=== PATIENT | female | born 1970 | race African-American/Black ===

== ENCOUNTER 2016-09-15 17:20 | Inpatient (IN) | payer MEDICAID, OTHER ==
[~2016-09-15] VITALS: Ht 157.5 cm; Wt 124.7 kg
[~2016-09-15 17:20] MED LIST: BECL8.7A6 IH; CITA20TA9 PO; DSS100 PO; LISI-662 PO; METO25 PO; OMEP20 PO; RISP2 PO; VITAD1000 PO
[2016-09-15 17:47] VITALS: BP 111/54
[2016-09-15] MEDS ORDERED: HALOPERIDOL 5 MG TABLET PO PRN (18:00)
[2016-09-15] MEDS ORDERED: ZOLPIDEM TARTRATE 10 MG TABLET PO PRN (18:00)
[2016-09-15 18:40] VITALS: BP 116/75
[2016-09-15] MEDS: RisperiDONE 2 MG TABLET PO SCH (19:26)
[2016-09-16 01:10] VITALS: BP 102/63
[2016-09-16] MEDS ORDERED: ACETAMINOPHEN 325 MG TABLET PO PRN ×2 (07:15→09:15)
[2016-09-16 07:26] LABS: BASOPHILS % (AUTO) 0.4 % (0.0-2.0); EOSINOPHILS % (AUTO) 3.1 % (1.0-6.0); HEMATOCRIT 38.6 % (36-46); HEMOGLOBIN 12.6 g/dL (12.0-16.0); LYMPHOCYTES # (AUTO) 2.4 K/uL (1.0-4.8); LYMPHOCYTES % (AUTO) 41.8 % (22.0-44.0); MEAN CORPUSCULAR HEMOGLOBIN 27.6 pg (26.0-34.0); MEAN CORPUSCULAR HGB CONC 32.6 G/dL (31.0-37.0); MEAN CORPUSCULAR VOLUME 85 fL (80-100); MONOCYTES # (AUTO) 0.6 K/uL (0.1-1.0); MONOCYTES % (AUTO) 10.4 % (2.0-9.0); NEUTROPHILS # (AUTO) 2.5 K/uL (1.8-7.7); NEUTROPHILS % (AUTO) 44.3 % (40.0-70.0); PLATELET COUNT (AUTO) 214 K/uL (150-450); RED BLOOD CELL COUNT(AUTO) 4.56 MIL/uL (4.00-5.20); RED CELL DISTRIBUTION WIDTH 15.3 % (11.5-14.5); WHITE BLOOD COUNT (AUTO) 5.7 K/uL (4.5-11.0)
[2016-09-16 07:56] LABS: HEMOGLOBIN A1C 5.6 % (4.5-6.2)
[2016-09-16 08:40] LABS: ALANINE AMINOTRANSFERASE 19 U/L (12-78); ALBUMIN 3.4 g/dL (3.4-5.0); ANION GAP 5 mmol/L (8-16); ASPARTATE AMINOTRANSFERASE 17 U/L (15-37); BILIRUBIN,TOTAL 0.5 mg/dL (0.1-1.0); CARBON DIOXIDE 40 mmol/L (22-29); CHLORIDE 92 mmol/L (98-107); CREATININE 0.77 mg/dL (0.60-1.30); GLOMERULAR FILTR. RATE CALC > 60 mL/min (>60); SODIUM SERUM 137 mmol/L (136-145); THYROID STIMULATING HORMONE 0.71 uIU/mL (0.36-3.74); UREA NITROGEN, BLOOD 16 mg/dL (7-18)
[2016-09-16 08:46] LABS: POTASSIUM 2.9 mmol/L (3.5-5.1)
[2016-09-16] MEDS ORDERED: CloNIDine HCL 0.1 MG TABLET PO PRN (09:15)
[2016-09-16] MEDS ORDERED: BACITRACIN 28.4 GM OINTMENT TP PRN (09:15)
[2016-09-16] MEDS ORDERED: BENZOCAINE/MENTHOL LOZENGE MM PRN (09:15)
[2016-09-16] MEDS ORDERED: MAG HYDROX/AL HYDROX/SIMETH ES 30 ML SUSPENSION UDCUP PO PRN (09:15)
[2016-09-16] MEDS ORDERED: ALBUTEROL SULFATE HFA 90 MCG/PUFF 8 GM INHALER IH PRN (09:15)
[2016-09-16] MEDS ORDERED: IBUPROFEN 600 MG TABLET PO PRN (09:15)
[2016-09-16] MEDS ORDERED: LOPERAMIDE HCL 2 MG CAPSULE PO PRN (09:15)
[2016-09-16] MEDS ORDERED: POTASSIUM CHLORIDE 20 MEQ ER TABLET PO ONE (09:15)
[2016-09-16] MEDS ORDERED: ONDANSETRON HCL 4 MG TABLET PO PRN (09:15)
[2016-09-16] MEDS ORDERED: MAGNESIUM HYDROXIDE SUSPENSION 30 ML UDCUP PO PRN (09:15)
[2016-09-16] MEDS: SPIRONOLACTONE 50 MG TABLET PO SCH (09:15)
[2016-09-16] MEDS ORDERED: PETROLATUM,WHITE 71 GM JELLY TP PRN (09:15)
[2016-09-16] MEDS: CITALOPRAM HYDROBROMIDE 20 MG TABLET PO SCH (09:57)
[2016-09-16] MEDS: RisperiDONE 2 MG TABLET PO SCH ×2 (09:57→16:07)
[2016-09-16] MEDS: GuaiFENesin/D-METHORPHAN/PHENYLEPH 5 ML LIQUID ORAL.SYG PO PRN (16:15)
[2016-09-16 16:31] VITALS: BP 119/48
[2016-09-17] MEDS: GuaiFENesin/D-METHORPHAN/PHENYLEPH 5 ML LIQUID ORAL.SYG PO PRN ×2 (06:35→15:44)
[2016-09-17 06:36] VITALS: BP 136/80
[2016-09-17] MEDS: CITALOPRAM HYDROBROMIDE 20 MG TABLET PO SCH (08:41)
[2016-09-17] MEDS: RisperiDONE 2 MG TABLET PO SCH ×2 (08:41→16:27)
[2016-09-17] MEDS: NICOTINE 21 MG/24 HOUR PATCH TD SCH (08:41)
[2016-09-17] MEDS: CHOLECALCIFEROL (VIT D3) 1,000 UNITS TABLET PO SCH (08:41)
[2016-09-17] MEDS: SPIRONOLACTONE 50 MG TABLET PO SCH (08:42)
[2016-09-17] MEDS: OMEPRAZOLE 20 MG CAPSULE PO SCH (08:42)
[2016-09-17] MEDS ORDERED: CIPROFLOXACIN HCL 500 MG TABLET PO SCH (09:00)
[2016-09-17 09:03] VITALS: BP 123/73
[2016-09-17] MEDS ORDERED: POTASSIUM CHLORIDE 20 MEQ ER TABLET PO ONE ×2 (09:15→10:15)
[2016-09-17 16:11] VITALS: BP 125/67
[2016-09-18 02:35] VITALS: BP 138/94
[2016-09-18] MEDS: TraMADol HCL 50 MG TABLET PO PRN ×3 (02:57→16:14)
[2016-09-18] MEDS: RisperiDONE 2 MG TABLET PO SCH ×2 (08:36→16:13)
[2016-09-18] MEDS: SPIRONOLACTONE 50 MG TABLET PO SCH (08:36)
[2016-09-18] MEDS: CITALOPRAM HYDROBROMIDE 20 MG TABLET PO SCH (08:36)
[2016-09-18] MEDS: CHOLECALCIFEROL (VIT D3) 1,000 UNITS TABLET PO SCH (08:36)
[2016-09-18] MEDS: OMEPRAZOLE 20 MG CAPSULE PO SCH (08:36)
[2016-09-18] MEDS: GuaiFENesin/D-METHORPHAN/PHENYLEPH 5 ML LIQUID ORAL.SYG PO PRN (08:37)
[2016-09-18 08:46] VITALS: BP 145/90
[2016-09-18] MEDS: NICOTINE 21 MG/24 HOUR PATCH TD SCH (09:16)
[2016-09-18 09:56] VITALS: BP 111/75
[2016-09-18 16:14] VITALS: BP 134/70
[2016-09-19] VITALS (7 sets, daily range): BP systolic 106–142; BP diastolic 68–82
[2016-09-19] MEDS: TraMADol HCL 50 MG TABLET PO PRN ×3 (02:57→22:31)
[2016-09-19] MEDS: GuaiFENesin/D-METHORPHAN/PHENYLEPH 5 ML LIQUID ORAL.SYG PO PRN (02:57)
[2016-09-19] MEDS ORDERED: DiphenhydrAMINE HCL 50 MG/ML VIAL IM ONE (09:00)
[2016-09-19] MEDS: RisperiDONE 2 MG TABLET PO SCH ×2 (09:04→16:19)
[2016-09-19] MEDS ORDERED: DiphenhydrAMINE HCL 50 MG/ML VIAL ONE (09:04)
[2016-09-19] MEDS: OMEPRAZOLE 20 MG CAPSULE PO SCH (09:04)
[2016-09-19] MEDS: SPIRONOLACTONE 50 MG TABLET PO SCH (09:04)
[2016-09-19] MEDS: CHOLECALCIFEROL (VIT D3) 1,000 UNITS TABLET PO SCH (09:04)
[2016-09-19] MEDS: CITALOPRAM HYDROBROMIDE 20 MG TABLET PO SCH (09:04)
[2016-09-19] MEDS: NICOTINE 21 MG/24 HOUR PATCH TD SCH (09:10)
[2016-09-20 06:48] VITALS: BP 140/89
[2016-09-20] MEDS: LORazepam 2 MG TABLET PO PRN ×2 (06:50→16:00)
[2016-09-20 08:41] VITALS: BP 137/79
[2016-09-20] MEDS: SPIRONOLACTONE 50 MG TABLET PO SCH (09:00)
[2016-09-20] MEDS: TraMADol HCL 50 MG TABLET PO PRN (09:26)
[2016-09-20] MEDS: OMEPRAZOLE 20 MG CAPSULE PO SCH (09:26)
[2016-09-20] MEDS: CITALOPRAM HYDROBROMIDE 20 MG TABLET PO SCH (09:26)
[2016-09-20] MEDS: CHOLECALCIFEROL (VIT D3) 1,000 UNITS TABLET PO SCH (09:26)
[2016-09-20] MEDS: RisperiDONE 2 MG TABLET PO SCH ×2 (09:26→16:00)
[2016-09-20] MEDS: NICOTINE 21 MG/24 HOUR PATCH TD SCH (09:27)
[2016-09-20 16:00] VITALS: BP 134/81
[2016-09-20] MEDS: BENZTROPINE MESYLATE 1 MG TABLET PO SCH (16:00)
[2016-09-21 04:06] VITALS: BP 142/90
[2016-09-21] MEDS: TraMADol HCL 50 MG TABLET PO PRN (04:09)
[2016-09-21 05:40] VITALS: BP 138/96
[2016-09-21] MEDS: LORazepam 2 MG TABLET PO PRN (05:42)
[2016-09-21 08:42] VITALS: BP 126/72
[2016-09-21] MEDS: CITALOPRAM HYDROBROMIDE 20 MG TABLET PO SCH (09:13)
[2016-09-21] MEDS: BENZTROPINE MESYLATE 1 MG TABLET PO SCH (09:13)
[2016-09-21] MEDS: OMEPRAZOLE 20 MG CAPSULE PO SCH (09:13)
[2016-09-21] MEDS: SPIRONOLACTONE 50 MG TABLET PO SCH (09:13)
[2016-09-21] MEDS: NICOTINE 21 MG/24 HOUR PATCH TD SCH (09:13)
[2016-09-21] MEDS: RisperiDONE 2 MG TABLET PO SCH (09:13)
[2016-09-21] MEDS: CHOLECALCIFEROL (VIT D3) 1,000 UNITS TABLET PO SCH (09:13)
[2016-09-21] MEDS ORDERED: SPIR50 PO (10:06)
[2016-09-21] MEDS ORDERED: BENZ1TAB10 PO (10:06)
[2016-09-21] MEDS ORDERED: ALBU8HFA4 IH (10:09)
== END 2016-09-21 13:25 | disposition home or self-care (01) | DRG 750 ==
LOC: EDSTATUS 18:10 → B2S 18:26
PROVIDERS: ADMIT Psychiatry & Neurology Psychiatry; ATTEND Psychiatry & Neurology Psychiatry
DX: F20.0 Paranoid schizophrenia (principal); Z68.43 Body mass index [BMI] 50.0-59.9, adult; I10 Essential (primary) hypertension; F25.9 Schizoaffective disorder, unspecified; J44.9 Chronic obstructive pulmonary disease, unspecified; E87.6 Hypokalemia; F15.10 Other stimulant abuse, uncomplicated; F12.10 Cannabis abuse, uncomplicated; F10.10 Alcohol abuse, uncomplicated; E55.9 Vitamin D deficiency, unspecified; E66.01 Morbid (severe) obesity due to excess calories; K21.9 Gastro-esophageal reflux disease without esophagitis; M54.5 Low back pain
CPT/HCPCS: 83036; 84132; 84439; 84443; J1200; J3535

== ENCOUNTER 2016-11-01 20:00 | Inpatient (IN) | payer MEDICAID ==
[~2016-11-01] VITALS: Ht 157.5 cm; Wt 125.6 kg
[~2016-11-01 20:00] MED LIST changes: +ALBU8HFA4 IH; -BECL8.7A6 IH; +BENZ1TAB10 PO; -DSS100 PO; -LISI-662 PO; -METO25 PO; +SPIR50 PO
[2016-11-01] MEDS ORDERED: HALOPERIDOL 5 MG TABLET PO PRN (20:45)
[2016-11-01] MEDS ORDERED: ZOLPIDEM TARTRATE 10 MG TABLET PO PRN (20:45)
[2016-11-02 00:28] LABS: BASOPHILS % (AUTO) 0.6 % (0.0-2.0); EOSINOPHILS % (AUTO) 5.7 % (1.0-6.0); HEMATOCRIT 38.2 % (36-46); HEMOGLOBIN 12.1 g/dL (12.0-16.0); LYMPHOCYTES # (AUTO) 2.8 K/uL (1.0-4.8); LYMPHOCYTES % (AUTO) 44.7 % (22.0-44.0); MEAN CORPUSCULAR HEMOGLOBIN 27.2 pg (26.0-34.0); MEAN CORPUSCULAR HGB CONC 31.7 G/dL (31.0-37.0); MEAN CORPUSCULAR VOLUME 86 fL (80-100); MONOCYTES # (AUTO) 0.4 K/uL (0.1-1.0); MONOCYTES % (AUTO) 6.5 % (2.0-9.0); NEUTROPHILS # (AUTO) 2.6 K/uL (1.8-7.7); NEUTROPHILS % (AUTO) 42.5 % (40.0-70.0); PLATELET COUNT (AUTO) 284 K/uL (150-450); RED BLOOD CELL COUNT(AUTO) 4.46 MIL/uL (4.00-5.20); RED CELL DISTRIBUTION WIDTH 16.2 % (11.5-14.5); WHITE BLOOD COUNT (AUTO) 6.2 K/uL (4.5-11.0)
[2016-11-02 00:36] LABS: ANION GAP 6 mmol/L (8-16); CARBON DIOXIDE 36 mmol/L (22-29); CHLORIDE 102 mmol/L (98-107); CREATININE 0.79 mg/dL (0.60-1.30); GLOMERULAR FILTR. RATE CALC > 60 mL/min (>60); POTASSIUM 3.2 mmol/L (3.5-5.1); SODIUM SERUM 144 mmol/L (136-145); UREA NITROGEN, BLOOD 12 mg/dL (7-18)
[2016-11-02 00:42] LABS: ALANINE AMINOTRANSFERASE 14 U/L (12-78); ALBUMIN 2.8 g/dL (3.4-5.0); ASPARTATE AMINOTRANSFERASE 13 U/L (15-37); BILIRUBIN,TOTAL 0.3 mg/dL (0.1-1.0)
[2016-11-02 03:26] VITALS: BP 136/76
[2016-11-02 08:20] LABS: BASOPHILS % (AUTO) 0.6 % (0.0-2.0); EOSINOPHILS % (AUTO) 6.3 % (1.0-6.0); HEMATOCRIT 36.4 % (36-46); HEMOGLOBIN 11.5 g/dL (12.0-16.0); LYMPHOCYTES # (AUTO) 2.3 K/uL (1.0-4.8); MEAN CORPUSCULAR HGB CONC 31.6 G/dL (31.0-37.0); MEAN CORPUSCULAR VOLUME 86 fL (80-100); MONOCYTES # (AUTO) 0.5 K/uL (0.1-1.0); MONOCYTES % (AUTO) 7.3 % (2.0-9.0); NEUTROPHILS # (AUTO) 3.1 K/uL (1.8-7.7); NEUTROPHILS % (AUTO) 49.8 % (40.0-70.0); PLATELET COUNT (AUTO) 253 K/uL (150-450); RED BLOOD CELL COUNT(AUTO) 4.25 MIL/uL (4.00-5.20); RED CELL DISTRIBUTION WIDTH 16.2 % (11.5-14.5); WHITE BLOOD COUNT (AUTO) 6.3 K/uL (4.5-11.0)
[2016-11-02 08:36] LABS: HEMOGLOBIN A1C 5.9 % (4.5-6.2)
[2016-11-02 08:51] LABS: ALANINE AMINOTRANSFERASE 13 U/L (12-78); ALBUMIN 2.7 g/dL (3.4-5.0); ANION GAP 7 mmol/L (8-16); ASPARTATE AMINOTRANSFERASE 13 U/L (15-37); BILIRUBIN,TOTAL 0.2 mg/dL (0.1-1.0); CALCIUM, TOTAL 7.6 mg/dL (8.8-10.5); CARBON DIOXIDE 33 mmol/L (22-29); CHLORIDE 104 mmol/L (98-107); CHOL/HDL RATIO 2.6 (3.9-5.7); CREATININE 0.67 mg/dL (0.60-1.30); GLOMERULAR FILTR. RATE CALC > 60 mL/min (>60); POTASSIUM 3.2 mmol/L (3.5-5.1); SODIUM SERUM 144 mmol/L (136-145); THYROID STIMULATING HORMONE 0.68 uIU/mL (0.36-3.74); UREA NITROGEN, BLOOD 10 mg/dL (7-18)
[2016-11-02] MEDS ORDERED: POTASSIUM CHLORIDE 20 MEQ ER TABLET PO ONE (10:15)
[2016-11-02] MEDS ORDERED: ACETAMINOPHEN 325 MG TABLET PO PRN (10:15)
[2016-11-02] MEDS: NICOTINE 21 MG/24 HOUR PATCH TD SCH (10:29)
[2016-11-02 10:30] VITALS: BP 132/78
[2016-11-02] MEDS ORDERED: CloNIDine HCL 0.1 MG TABLET PO PRN (14:00)
[2016-11-02] MEDS ORDERED: ONDANSETRON HCL 4 MG TABLET PO PRN (14:00)
[2016-11-02] MEDS ORDERED: PETROLATUM,WHITE 71 GM JELLY TP PRN (14:00)
[2016-11-02] MEDS ORDERED: BACITRACIN 28.4 GM OINTMENT TP PRN (14:00)
[2016-11-02] MEDS ORDERED: ALBUTEROL SULFATE HFA 90 MCG/PUFF 8 GM INHALER IH PRN (14:00)
[2016-11-02] MEDS ORDERED: LOPERAMIDE HCL 2 MG CAPSULE PO PRN (14:00)
[2016-11-02] MEDS ORDERED: MAG HYDROX/AL HYDROX/SIMETH ES 30 ML SUSPENSION UDCUP PO PRN (14:00)
[2016-11-02] MEDS ORDERED: MAGNESIUM HYDROXIDE SUSPENSION 30 ML UDCUP PO PRN (14:00)
[2016-11-02] MEDS ORDERED: BENZOCAINE/MENTHOL LOZENGE MM PRN (14:00)
[2016-11-02 16:09] VITALS: BP 111/75
[2016-11-02] MEDS: BENZTROPINE MESYLATE 1 MG TABLET PO SCH (17:56)
[2016-11-02] MEDS: RisperiDONE 2 MG TABLET PO SCH (17:56)
[2016-11-03 06:39] VITALS: BP 135/81
[2016-11-03 08:29] VITALS: BP 149/91
[2016-11-03] MEDS: NICOTINE 21 MG/24 HOUR PATCH TD SCH (09:50)
[2016-11-03] MEDS: RisperiDONE 2 MG TABLET PO SCH ×2 (09:50→16:34)
[2016-11-03] MEDS: CITALOPRAM HYDROBROMIDE 20 MG TABLET PO SCH (09:50)
[2016-11-03] MEDS: BENZTROPINE MESYLATE 1 MG TABLET PO SCH ×2 (09:50→16:34)
[2016-11-03] MEDS: POTASSIUM CHLORIDE 10 MEQ ER TABLET PO SCH (09:51)
[2016-11-03] MEDS: CHOLECALCIFEROL (VIT D3) 1,000 UNITS TABLET PO SCH (09:51)
[2016-11-03] MEDS: FUROSEMIDE 20 MG TABLET PO SCH (09:53)
[2016-11-03 09:55] VITALS: BP 145/93
[2016-11-03] MEDS: IBUPROFEN 600 MG TABLET PO PRN ×3 (09:55→20:46)
[2016-11-03 16:04] VITALS: BP 143/74
[2016-11-03] MEDS: LORazepam 2 MG TABLET PO PRN (20:47)
[2016-11-04 01:34] VITALS: BP 150/90
[2016-11-04] MEDS: FUROSEMIDE 20 MG TABLET PO SCH (08:18)
[2016-11-04] MEDS: RisperiDONE 2 MG TABLET PO SCH ×2 (08:18→16:05)
[2016-11-04] MEDS: NICOTINE 21 MG/24 HOUR PATCH TD SCH (08:18)
[2016-11-04] MEDS: POTASSIUM CHLORIDE 10 MEQ ER TABLET PO SCH (08:18)
[2016-11-04] MEDS: BENZTROPINE MESYLATE 1 MG TABLET PO SCH ×2 (08:18→16:05)
[2016-11-04] MEDS: CITALOPRAM HYDROBROMIDE 20 MG TABLET PO SCH (08:18)
[2016-11-04] MEDS: CHOLECALCIFEROL (VIT D3) 1,000 UNITS TABLET PO SCH (08:18)
[2016-11-04] MEDS: IBUPROFEN 600 MG TABLET PO PRN (16:05)
[2016-11-04 16:07] VITALS: BP 128/85
[2016-11-05 02:35] VITALS: BP 140/82
[2016-11-05] MEDS: LORazepam 2 MG TABLET PO PRN ×2 (02:39→16:51)
[2016-11-05] MEDS: IBUPROFEN 600 MG TABLET PO PRN (02:40)
[2016-11-05 08:48] VITALS: BP 130/92
[2016-11-05] MEDS: NICOTINE 21 MG/24 HOUR PATCH TD SCH (09:02)
[2016-11-05] MEDS: RisperiDONE 2 MG TABLET PO SCH ×2 (09:02→16:16)
[2016-11-05] MEDS: BENZTROPINE MESYLATE 1 MG TABLET PO SCH ×2 (09:02→16:16)
[2016-11-05] MEDS: CHOLECALCIFEROL (VIT D3) 1,000 UNITS TABLET PO SCH (09:02)
[2016-11-05] MEDS: CITALOPRAM HYDROBROMIDE 20 MG TABLET PO SCH (09:02)
[2016-11-05] MEDS: POTASSIUM CHLORIDE 10 MEQ ER TABLET PO SCH (09:03)
[2016-11-05] MEDS: FUROSEMIDE 20 MG TABLET PO SCH (09:05)
[2016-11-05 16:13] VITALS: BP 141/84
[2016-11-05 16:51] VITALS: BP 138/80
[2016-11-05] MEDS: ACETAMINOPHEN 325 MG TABLET PO PRN (16:51)
[2016-11-06 02:04] VITALS: BP 156/116
[2016-11-06] MEDS: IBUPROFEN 600 MG TABLET PO PRN ×2 (02:09→08:00)
[2016-11-06 03:08] VITALS: BP 113/61
[2016-11-06] MEDS: BENZTROPINE MESYLATE 1 MG TABLET PO SCH ×2 (07:59→16:56)
[2016-11-06] MEDS: NICOTINE 21 MG/24 HOUR PATCH TD SCH (07:59)
[2016-11-06] MEDS: CITALOPRAM HYDROBROMIDE 20 MG TABLET PO SCH (08:00)
[2016-11-06] MEDS: CHOLECALCIFEROL (VIT D3) 1,000 UNITS TABLET PO SCH (08:00)
[2016-11-06] MEDS: RisperiDONE 3 MG TABLET PO SCH ×2 (08:00→16:56)
[2016-11-06] MEDS: POTASSIUM CHLORIDE 10 MEQ ER TABLET PO SCH (08:01)
[2016-11-06] MEDS: FUROSEMIDE 20 MG TABLET PO SCH (08:03)
[2016-11-06 08:12] VITALS: BP 133/87
[2016-11-06 08:17] VITALS: BP 133/87
[2016-11-06 16:03] VITALS: BP 127/69
[2016-11-06] MEDS: LORazepam 2 MG TABLET PO PRN (16:57)
[2016-11-06] MEDS: ACETAMINOPHEN 325 MG TABLET PO PRN (16:58)
[2016-11-07 01:38] VITALS: BP 139/87
[2016-11-07] MEDS: IBUPROFEN 600 MG TABLET PO PRN ×2 (01:44→18:48)
[2016-11-07] MEDS: LORazepam 2 MG TABLET PO PRN ×3 (01:44→18:48)
[2016-11-07] MEDS: ACETAMINOPHEN 325 MG TABLET PO PRN (08:10)
[2016-11-07 08:54] VITALS: BP 145/88
[2016-11-07] MEDS: RisperiDONE 3 MG TABLET PO SCH ×2 (08:57→16:14)
[2016-11-07] MEDS: CITALOPRAM HYDROBROMIDE 20 MG TABLET PO SCH (08:57)
[2016-11-07] MEDS: NICOTINE 21 MG/24 HOUR PATCH TD SCH (08:57)
[2016-11-07] MEDS: BENZTROPINE MESYLATE 1 MG TABLET PO SCH ×2 (08:57→16:14)
[2016-11-07] MEDS: CHOLECALCIFEROL (VIT D3) 1,000 UNITS TABLET PO SCH (08:57)
[2016-11-07] MEDS: POTASSIUM CHLORIDE 10 MEQ ER TABLET PO SCH (08:57)
[2016-11-07] MEDS: FUROSEMIDE 20 MG TABLET PO SCH (08:57)
[2016-11-07 09:07] LABS: POTASSIUM 3.4 mmol/L (3.5-5.1)
[2016-11-07 16:05] VITALS: BP 131/71
[2016-11-07] MEDS ORDERED: POTA-9 PO (16:55)
[2016-11-07] MEDS ORDERED: CITA40TA14 PO (16:55)
[2016-11-07] MEDS ORDERED: CHOL100034 PO (16:55)
[2016-11-07] MEDS ORDERED: BENZ2AMP2 PO (16:55)
[2016-11-07] MEDS ORDERED: FURO-152 PO (16:55)
[2016-11-07] MEDS ORDERED: RISP3TAB44 PO (16:55)
== END 2016-11-08 07:15 | disposition home or self-care (01) | DRG 750 ==
LOC: BV PSY EVL 21:22 → AHU 22:57 → B2S 11-02 01:28
PROVIDERS: ADMIT Psychiatry & Neurology Psychiatry; ATTEND Psychiatry & Neurology Psychiatry
DX: F25.0 Schizoaffective disorder, bipolar type (principal); R45.851 Suicidal ideations; Z68.43 Body mass index [BMI] 50.0-59.9, adult; E55.9 Vitamin D deficiency, unspecified; I10 Essential (primary) hypertension; E66.01 Morbid (severe) obesity due to excess calories; E87.6 Hypokalemia; F12.90 Cannabis use, unspecified, uncomplicated; F15.10 Other stimulant abuse, uncomplicated; F17.200 Nicotine dependence, unspecified, uncomplicated; G47.00 Insomnia, unspecified; H54.42 Blindness, left eye, normal vision right eye; J44.9 Chronic obstructive pulmonary disease, unspecified; J45.909 Unspecified asthma, uncomplicated; K21.9 Gastro-esophageal reflux disease without esophagitis; Z59.0 Homelessness; F22 Delusional disorders; Z71.51 Drug abuse counseling and surveillance of drug abuser; Z71.6 Tobacco abuse counseling
CPT/HCPCS: 80307; 83036; 84132; 84295; 84439; 84443; 99285; G0480

== ENCOUNTER 2016-11-20 07:31 | Inpatient (IN) | payer MEDICAID, OTHER ==
[~2016-11-20] VITALS: Ht 160 cm; Wt 121.9 kg
[~2016-11-20 07:31] MED LIST changes: -ALBU8HFA4 IH; -BENZ1TAB10 PO; +BENZ2AMP2 PO; +CHOL100034 PO; -CITA20TA9 PO; +CITA40TA14 PO; +FURO-152 PO; -OMEP20 PO; +POTA-9 PO; -RISP2 PO; +RISP3TAB44 PO; -SPIR50 PO; -VITAD1000 PO
[2016-11-20] MEDS ORDERED: MAGNESIUM SULFATE 2 GM, MVI, ADULT NO.1 WITH VIT K 10 ML, THIAMINE HCL 100 MG, FOLIC AC... IV ONE ×5 (07:45)
[2016-11-20 08:08] LABS: BASOPHILS % (AUTO) 0.5 % (0.0-2.0); EOSINOPHILS % (AUTO) 3.5 % (1.0-6.0); HEMOGLOBIN 12.8 g/dL (12.0-16.0); LYMPHOCYTES # (AUTO) 2.2 K/uL (1.0-4.8); LYMPHOCYTES % (AUTO) 26.2 % (22.0-44.0); MEAN CORPUSCULAR HEMOGLOBIN 26.8 pg (26.0-34.0); MEAN CORPUSCULAR VOLUME 84 fL (80-100); MONOCYTES # (AUTO) 0.7 K/uL (0.1-1.0); NEUTROPHILS # (AUTO) 5.1 K/uL (1.8-7.7); NEUTROPHILS % (AUTO) 61.8 % (40.0-70.0); PLATELET COUNT (AUTO) 340 K/uL (150-450); RED BLOOD CELL COUNT(AUTO) 4.78 MIL/uL (4.00-5.20); RED CELL DISTRIBUTION WIDTH 16.2 % (11.5-14.5); WHITE BLOOD COUNT (AUTO) 8.2 K/uL (4.5-11.0)
[2016-11-20 08:18] LABS: ANION GAP 11 mmol/L (8-16); CARBON DIOXIDE 27 mmol/L (22-29); CHLORIDE 98 mmol/L (98-107); CREATININE 0.63 mg/dL (0.60-1.30); GLOMERULAR FILTR. RATE CALC > 60 mL/min (>60); POTASSIUM 3.9 mmol/L (3.5-5.1); SODIUM SERUM 136 mmol/L (136-145); UREA NITROGEN, BLOOD 9 mg/dL (7-18)
[2016-11-20 08:23] LABS: ALANINE AMINOTRANSFERASE 27 U/L (12-78); ALBUMIN 3.5 g/dL (3.4-5.0); ASPARTATE AMINOTRANSFERASE 48 U/L (15-37); BILIRUBIN,TOTAL 0.4 mg/dL (0.1-1.0); TOTAL PROTEIN, SERUM 8.3 g/dL (6.4-8.2)
[2016-11-20] MEDS ORDERED: LORazepam 1 MG TABLET PO ONE (09:15)
[2016-11-20] MEDS ORDERED: BENZ2TAB10 PO (11:30)
[2016-11-20] MEDS ORDERED: LORazepam 2 MG/ML VIAL IVP ONE (11:30)
[2016-11-20] MEDS ORDERED: MAGNESIUM HYDROXIDE SUSPENSION 30 ML UDCUP PO PRN (12:30)
[2016-11-20] MEDS ORDERED: SODIUM CHLORIDE 0.9% 1,000 ML IV ONE (12:30)
[2016-11-20] MEDS ORDERED: MAG HYDROX/AL HYDROX/SIMETH 30 ML SUSP UDCUP PO ONE (12:45)
[2016-11-20 13:21] VITALS: BP 140/76
[2016-11-20 13:31] VITALS: BP 140/76
[2016-11-20] MEDS: LORazepam 2 MG/ML VIAL IVP PRN (15:53)
[2016-11-20 17:00] VITALS: BP 105/61
[2016-11-20] MEDS: RisperiDONE 2 MG TABLET PO SCH ×2 (18:23→19:47)
[2016-11-20] MEDS: MULTIVITAMINS WITH MINERALS, THERAPEUTIC TABLET PO SCH (18:23)
[2016-11-20 19:37] VITALS: BP 135/73
[2016-11-20] MEDS: ACETAMINOPHEN 325 MG TABLET PO PRN (19:47)
[2016-11-20] MEDS: DOCUSATE SODIUM 100 MG CAPSULE PO SCH (19:48)
[2016-11-20 23:15] VITALS: BP 126/68
[2016-11-21] MEDS: LORazepam 2 MG/ML VIAL IVP PRN (03:49)
[2016-11-21] MEDS: ACETAMINOPHEN 325 MG TABLET PO PRN ×2 (03:58→19:02)
[2016-11-21] MEDS ORDERED: 0.9% SODIUM CHLORIDE 10 ML SYRINGE IVP PRN (04:15)
[2016-11-21 06:45] VITALS: BP 121/77
[2016-11-21 07:25] VITALS: BP 135/63
[2016-11-21] MEDS: MULTIVITAMINS WITH MINERALS, THERAPEUTIC TABLET PO SCH (08:01)
[2016-11-21] MEDS: PANTOPRAZOLE SODIUM 40 MG DR TABLET PO SCH (08:01)
[2016-11-21] MEDS: DOCUSATE SODIUM 100 MG CAPSULE PO SCH ×2 (08:01→21:07)
[2016-11-21] MEDS: RisperiDONE 2 MG TABLET PO SCH (08:01)
[2016-11-21] MEDS: RisperiDONE 3 MG TABLET PO SCH ×2 (09:00→21:07)
[2016-11-21 11:33] VITALS: BP 134/89
[2016-11-21] MEDS: BENZTROPINE MESYLATE 2 MG TABLET PO SCH ×2 (13:00→21:07)
[2016-11-21] MEDS: CITALOPRAM HYDROBROMIDE 20 MG TABLET PO SCH (13:00)
[2016-11-21] MEDS ORDERED: SODIUM CHLORIDE 0.9% 2,000 ML IV ONE (14:00)
[2016-11-21 15:48] VITALS: BP 131/64
[2016-11-21 19:30] VITALS: BP 145/83
[2016-11-21 23:30] VITALS: BP 148/82
[2016-11-22] MEDS: ACETAMINOPHEN 325 MG TABLET PO PRN ×2 (02:26→08:58)
[2016-11-22 03:30] VITALS: BP 138/84
[2016-11-22 07:29] VITALS: BP 133/83
[2016-11-22] MEDS: MULTIVITAMINS WITH MINERALS, THERAPEUTIC TABLET PO SCH (08:19)
[2016-11-22] MEDS: CITALOPRAM HYDROBROMIDE 20 MG TABLET PO SCH (08:20)
[2016-11-22] MEDS: PANTOPRAZOLE SODIUM 40 MG DR TABLET PO SCH (08:20)
[2016-11-22] MEDS: RisperiDONE 3 MG TABLET PO SCH (08:20)
[2016-11-22] MEDS: DOCUSATE SODIUM 100 MG CAPSULE PO SCH (08:20)
[2016-11-22] MEDS: BENZTROPINE MESYLATE 2 MG TABLET PO SCH (08:20)
[2016-11-22] MEDS ORDERED: AMLO2.5T PO (10:29)
== END 2016-11-22 11:20 | disposition home or self-care (01) | DRG 751 ==
LOC: EMS 07:33 → 6N 11:31
PROVIDERS: ADMIT Internal Medicine; ATTEND Internal Medicine
DX: F23 Brief psychotic disorder (principal); G92 Toxic encephalopathy; E44.0 Moderate protein-calorie malnutrition; E66.01 Morbid (severe) obesity due to excess calories; J44.9 Chronic obstructive pulmonary disease, unspecified; F15.10 Other stimulant abuse, uncomplicated; F10.129 Alcohol abuse with intoxication, unspecified; J45.909 Unspecified asthma, uncomplicated; I10 Essential (primary) hypertension; M19.90 Unspecified osteoarthritis, unspecified site; F32.9 Major depressive disorder, single episode, unspecified; H54.7 Unspecified visual loss; F19.10 Other psychoactive substance abuse, uncomplicated; F25.0 Schizoaffective disorder, bipolar type; Z79.899 Other long term (current) drug therapy; Z59.0 Homelessness; Z91.19 Patient's noncompliance with other medical treatment and regimen
CPT/HCPCS: 70450; 93005; 96365; 96366; 96375; 99285; G0480; J2060; J3411; J3475; J3490; J7030

== ENCOUNTER 2016-12-02 21:07 | Inpatient (IN) | payer MEDICAID, OTHER ==
[~2016-12-02] VITALS: Ht 157.5 cm; Wt 128.8 kg
[~2016-12-02 21:07] MED LIST changes: +AMLO2.5T PO; -BENZ2AMP2 PO; +BENZ2TAB10 PO
[2016-12-02 21:32] VITALS: BP 130/77
[2016-12-02] MEDS ORDERED: IPRATROPIUM BROMIDE 0.5 MG/2.5 ML NEB SOLUTION NEB ONE (22:45)
[2016-12-02] MEDS ORDERED: ALBUTEROL SULFATE 5 MG/ML 20 ML NEB SOLN [BULK] NEB ONE (22:45)
[2016-12-02 23:31] LABS: ADD UA MICROSCOPIC NO; APPEARANCE,URINE CLOUDY (CLEAR); GLUCOSE, URINE (UA) NEGATIVE (NEGATIVE); KETONES,URINE NEGATIVE (NEGATIVE); LEUKOCYTE ESTERASE ,URINE NEGATIVE (NEGATIVE); OCCULT BLOOD,URINE NEGATIVE (NEGATIVE); PH,URINE 5.5 (5.0-8.0); PROTEIN,URINE POS 1+ (NEGATIVE)
[2016-12-02] MEDS ORDERED: 0.9% SODIUM CHLORIDE 5 ML NEB SOLUTION NEB ONE (23:36)
[2016-12-03 01:33] VITALS: BP 99/56
[2016-12-03 06:28] LABS: BASOPHILS % (AUTO) 0.5 % (0.0-2.0); EOSINOPHILS % (AUTO) 1.5 % (1.0-6.0); HEMATOCRIT 35.5 % (36-46); HEMOGLOBIN 11.3 g/dL (12.0-16.0); LYMPHOCYTES # (AUTO) 2.2 K/uL (1.0-4.8); LYMPHOCYTES % (AUTO) 37.6 % (22.0-44.0); MEAN CORPUSCULAR HEMOGLOBIN 26.5 pg (26.0-34.0); MEAN CORPUSCULAR HGB CONC 31.7 G/dL (31.0-37.0); MEAN CORPUSCULAR VOLUME 84 fL (80-100); MONOCYTES # (AUTO) 0.5 K/uL (0.1-1.0); MONOCYTES % (AUTO) 7.9 % (2.0-9.0); NEUTROPHILS # (AUTO) 3.1 K/uL (1.8-7.7); NEUTROPHILS % (AUTO) 52.5 % (40.0-70.0); PLATELET COUNT (AUTO) 262 K/uL (150-450); RED BLOOD CELL COUNT(AUTO) 4.25 MIL/uL (4.00-5.20); RED CELL DISTRIBUTION WIDTH 16.1 % (11.5-14.5)
[2016-12-03 06:44] LABS: ALANINE AMINOTRANSFERASE 19 U/L (12-78); ALBUMIN 2.8 g/dL (3.4-5.0); ANION GAP 6 mmol/L (8-16); ASPARTATE AMINOTRANSFERASE 27 U/L (15-37); BILIRUBIN,TOTAL 0.2 mg/dL (0.1-1.0); CALCIUM, TOTAL 7.7 mg/dL (8.8-10.5); CARBON DIOXIDE 31 mmol/L (22-29); CHLORIDE 106 mmol/L (98-107); CHOL/HDL RATIO 2.1 (3.9-5.7); CREATININE 0.78 mg/dL (0.60-1.30); GLOMERULAR FILTR. RATE CALC > 60 mL/min (>60); POTASSIUM 3.3 mmol/L (3.5-5.1); SODIUM SERUM 143 mmol/L (136-145); THYROID STIMULATING HORMONE 0.99 uIU/mL (0.36-3.74); TOTAL PROTEIN, SERUM 6.5 g/dL (6.4-8.2); UREA NITROGEN, BLOOD 14 mg/dL (7-18)
[2016-12-03 06:57] LABS: HEMOGLOBIN A1C 6.1 % (4.5-6.2)
[2016-12-03] MEDS: LORazepam 2 MG TABLET PO PRN (09:04)
[2016-12-03] MEDS: HALOPERIDOL 5 MG TABLET PO PRN (09:06)
[2016-12-03] MEDS: RisperiDONE 3 MG TABLET PO SCH (09:19)
[2016-12-03] MEDS: CITALOPRAM HYDROBROMIDE 20 MG TABLET PO SCH (09:19)
[2016-12-03] MEDS ORDERED: -PHARMACY VACCINE NOTE- MISC ONE ×2 (12:30)
[2016-12-03 13:15] VITALS: BP 137/86
[2016-12-03 18:38] VITALS: BP 132/88
[2016-12-03] MEDS ORDERED: ALBUTEROL SULFATE HFA 90 MCG/PUFF 8 GM INHALER IH PRN ×2 (20:45→22:45)
[2016-12-03] MEDS ORDERED: IBUPROFEN 600 MG TABLET PO PRN (20:45)
[2016-12-03 20:57] VITALS: BP 130/82
[2016-12-03] MEDS ORDERED: BENZOCAINE/MENTHOL LOZENGE MM PRN (22:45)
[2016-12-03] MEDS ORDERED: MAG HYDROX/AL HYDROX/SIMETH ES 30 ML SUSPENSION UDCUP PO PRN (22:45)
[2016-12-03] MEDS ORDERED: MAGNESIUM HYDROXIDE SUSPENSION 30 ML UDCUP PO PRN (22:45)
[2016-12-03] MEDS ORDERED: POTASSIUM CHLORIDE 20 MEQ ER TABLET PO ONE ×2 (22:45)
[2016-12-03] MEDS ORDERED: LOPERAMIDE HCL 2 MG CAPSULE PO PRN (22:45)
[2016-12-03] MEDS ORDERED: BACITRACIN 28.4 GM OINTMENT TP PRN (22:45)
[2016-12-03] MEDS ORDERED: CloNIDine HCL 0.1 MG TABLET PO PRN (22:45)
[2016-12-03] MEDS ORDERED: ONDANSETRON HCL 4 MG TABLET PO PRN (22:45)
[2016-12-03] MEDS ORDERED: PETROLATUM,WHITE 71 GM JELLY TP PRN (22:45)
[2016-12-04 07:11] VITALS: BP 168/98
[2016-12-04 08:31] VITALS: BP 150/81
[2016-12-04] MEDS: FUROSEMIDE 20 MG TABLET PO SCH (08:49)
[2016-12-04] MEDS: CITALOPRAM HYDROBROMIDE 20 MG TABLET PO SCH (08:49)
[2016-12-04] MEDS: RisperiDONE 3 MG TABLET PO SCH ×2 (08:49→16:31)
[2016-12-04] MEDS: POTASSIUM CHLORIDE 10 MEQ ER TABLET PO SCH (08:50)
[2016-12-04] MEDS: NICOTINE 21 MG/24 HOUR PATCH TD SCH (08:50)
[2016-12-04] MEDS: CHOLECALCIFEROL (VIT D3) 1,000 UNITS TABLET PO SCH (08:50)
[2016-12-04] MEDS: LORazepam 2 MG TABLET PO PRN ×2 (08:53→23:04)
[2016-12-04 16:12] VITALS: BP 130/86
[2016-12-04] MEDS ORDERED: POTASSIUM CHLORIDE 20 MEQ ER TABLET PO ONE (19:00)
[2016-12-05 00:25] VITALS: BP 143/79
[2016-12-05] MEDS: HALOPERIDOL 5 MG TABLET PO PRN ×2 (00:32→23:44)
[2016-12-05 08:24] VITALS: BP 164/98
[2016-12-05] MEDS: CITALOPRAM HYDROBROMIDE 20 MG TABLET PO SCH (08:54)
[2016-12-05] MEDS: NICOTINE 21 MG/24 HOUR PATCH TD SCH (08:54)
[2016-12-05] MEDS: FUROSEMIDE 20 MG TABLET PO SCH (08:54)
[2016-12-05] MEDS: CHOLECALCIFEROL (VIT D3) 1,000 UNITS TABLET PO SCH (08:55)
[2016-12-05] MEDS: RisperiDONE 3 MG TABLET PO SCH ×2 (08:55→16:47)
[2016-12-05] MEDS: POTASSIUM CHLORIDE 10 MEQ ER TABLET PO SCH (08:55)
[2016-12-05 16:38] VITALS: BP 148/89
[2016-12-05] MEDS: ACETAMINOPHEN 325 MG TABLET PO PRN (16:53)
[2016-12-05] MEDS ORDERED: DICLOFENAC SODIUM 1% 100 GM GEL [2GM] TP PRN (18:30)
[2016-12-05] MEDS: LORazepam 2 MG TABLET PO PRN (19:36)
[2016-12-06 00:39] VITALS: BP 140/89
[2016-12-06] MEDS: CITALOPRAM HYDROBROMIDE 20 MG TABLET PO SCH (10:24)
[2016-12-06] MEDS: RisperiDONE 3 MG TABLET PO SCH ×2 (10:24→16:56)
[2016-12-06] MEDS: FUROSEMIDE 20 MG TABLET PO SCH (10:24)
[2016-12-06] MEDS: CHOLECALCIFEROL (VIT D3) 1,000 UNITS TABLET PO SCH (10:24)
[2016-12-06] MEDS: POTASSIUM CHLORIDE 10 MEQ ER TABLET PO SCH (10:25)
[2016-12-06] MEDS: NICOTINE 21 MG/24 HOUR PATCH TD SCH (10:27)
[2016-12-06] MEDS: LORazepam 2 MG TABLET PO PRN ×2 (10:30→20:23)
[2016-12-06 11:22] VITALS: BP 146/81
[2016-12-06 16:38] VITALS: BP 148/88
[2016-12-06 20:23] VITALS: BP 140/85
[2016-12-06] MEDS: ZOLPIDEM TARTRATE 10 MG TABLET PO PRN (21:04)
[2016-12-06] MEDS ORDERED: POTASSIUM CHLORIDE 20 MEQ ER TABLET PO ONE (21:15)
[2016-12-07 05:09] VITALS: BP 137/99
[2016-12-07 08:39] VITALS: BP 147/86
[2016-12-07] MEDS: CITALOPRAM HYDROBROMIDE 20 MG TABLET PO SCH (09:09)
[2016-12-07] MEDS: CHOLECALCIFEROL (VIT D3) 1,000 UNITS TABLET PO SCH (09:09)
[2016-12-07] MEDS: FUROSEMIDE 20 MG TABLET PO SCH (09:09)
[2016-12-07] MEDS: RisperiDONE 3 MG TABLET PO SCH ×2 (09:10→16:05)
[2016-12-07] MEDS: POTASSIUM CHLORIDE 10 MEQ ER TABLET PO SCH (09:10)
[2016-12-07] MEDS: NICOTINE 21 MG/24 HOUR PATCH TD SCH (09:10)
[2016-12-07] MEDS: LORazepam 2 MG TABLET PO PRN ×2 (09:23→16:05)
[2016-12-07 16:01] VITALS: BP 146/88
[2016-12-07] MEDS: ZOLPIDEM TARTRATE 10 MG TABLET PO PRN (20:52)
[2016-12-08 04:01] VITALS: BP 134/71
[2016-12-08] MEDS: NICOTINE 21 MG/24 HOUR PATCH TD SCH (09:25)
[2016-12-08] MEDS: CITALOPRAM HYDROBROMIDE 20 MG TABLET PO SCH (09:26)
[2016-12-08] MEDS: FUROSEMIDE 20 MG TABLET PO SCH (09:26)
[2016-12-08] MEDS: RisperiDONE 3 MG TABLET PO SCH ×2 (09:26→16:53)
[2016-12-08] MEDS: CHOLECALCIFEROL (VIT D3) 1,000 UNITS TABLET PO SCH (09:26)
[2016-12-08] MEDS: POTASSIUM CHLORIDE 10 MEQ ER TABLET PO SCH (09:26)
[2016-12-08] MEDS: DiphenhydrAMINE HCL 25 MG CAPSULE PO SCH ×2 (09:26→16:53)
[2016-12-08 09:43] VITALS: BP 149/85
[2016-12-08 16:24] VITALS: BP 133/75
[2016-12-08] MEDS: ZOLPIDEM TARTRATE 10 MG TABLET PO PRN (20:37)
[2016-12-09 03:55] VITALS: BP 160/105
[2016-12-09] MEDS: LORazepam 2 MG TABLET PO PRN (03:56)
[2016-12-09 08:32] VITALS: BP 127/79
[2016-12-09] MEDS: NICOTINE 21 MG/24 HOUR PATCH TD SCH (09:24)
[2016-12-09] MEDS: DiphenhydrAMINE HCL 25 MG CAPSULE PO SCH ×2 (09:24→16:30)
[2016-12-09] MEDS: CHOLECALCIFEROL (VIT D3) 1,000 UNITS TABLET PO SCH (09:25)
[2016-12-09] MEDS: RisperiDONE 3 MG TABLET PO SCH ×2 (09:25→16:30)
[2016-12-09] MEDS: CITALOPRAM HYDROBROMIDE 20 MG TABLET PO SCH (09:25)
[2016-12-09] MEDS: FUROSEMIDE 20 MG TABLET PO SCH (09:25)
[2016-12-09] MEDS: POTASSIUM CHLORIDE 10 MEQ ER TABLET PO SCH (09:25)
[2016-12-09 16:24] VITALS: BP 138/75
[2016-12-09] MEDS: ZOLPIDEM TARTRATE 10 MG TABLET PO PRN (21:44)
[2016-12-09 21:45] VITALS: BP 130/80
[2016-12-09] MEDS: ACETAMINOPHEN 325 MG TABLET PO PRN (21:45)
[2016-12-10 00:30] VITALS: BP 126/76
[2016-12-10] MEDS: CHOLECALCIFEROL (VIT D3) 1,000 UNITS TABLET PO SCH (08:42)
[2016-12-10] MEDS: POTASSIUM CHLORIDE 10 MEQ ER TABLET PO SCH (08:42)
[2016-12-10] MEDS: CITALOPRAM HYDROBROMIDE 20 MG TABLET PO SCH (08:42)
[2016-12-10] MEDS: FUROSEMIDE 20 MG TABLET PO SCH (08:42)
[2016-12-10] MEDS: DiphenhydrAMINE HCL 25 MG CAPSULE PO SCH ×2 (08:42→16:10)
[2016-12-10] MEDS: RisperiDONE 3 MG TABLET PO SCH ×2 (08:42→16:10)
[2016-12-10] MEDS: NICOTINE 21 MG/24 HOUR PATCH TD SCH (08:45)
[2016-12-10 08:51] VITALS: BP 112/59
[2016-12-10 16:08] VITALS: BP 126/80
[2016-12-10] MEDS: LORazepam 2 MG TABLET PO PRN (16:10)
[2016-12-10] MEDS: ACETAMINOPHEN 325 MG TABLET PO PRN (16:10)
[2016-12-10 16:16] VITALS: BP 126/80
[2016-12-11 00:01] VITALS: BP 111/68
[2016-12-11 05:27] VITALS: BP 110/93
[2016-12-11] MEDS: LORazepam 2 MG TABLET PO PRN (05:29)
[2016-12-11] MEDS: IBUPROFEN 600 MG TABLET PO PRN ×2 (05:29→21:08)
[2016-12-11 08:24] VITALS: BP 144/69
[2016-12-11] MEDS: NICOTINE 21 MG/24 HOUR PATCH TD SCH (08:45)
[2016-12-11] MEDS: CITALOPRAM HYDROBROMIDE 20 MG TABLET PO SCH (08:45)
[2016-12-11] MEDS: FUROSEMIDE 20 MG TABLET PO SCH (08:46)
[2016-12-11] MEDS: POTASSIUM CHLORIDE 10 MEQ ER TABLET PO SCH (08:46)
[2016-12-11] MEDS: CHOLECALCIFEROL (VIT D3) 1,000 UNITS TABLET PO SCH (08:46)
[2016-12-11] MEDS: RisperiDONE 3 MG TABLET PO SCH ×2 (08:51→17:08)
[2016-12-11] MEDS: TRIHEXYPHENIDYL HCL 5 MG TABLET PO SCH ×3 (09:50→17:08)
[2016-12-11 16:09] VITALS: BP 134/80
[2016-12-11 21:04] VITALS: BP 130/76
[2016-12-11] MEDS: ZOLPIDEM TARTRATE 10 MG TABLET PO PRN (21:08)
[2016-12-12 00:31] VITALS: BP 101/61
[2016-12-12] MEDS: TRIHEXYPHENIDYL HCL 5 MG TABLET PO SCH ×3 (08:06→16:52)
[2016-12-12] MEDS: RisperiDONE 3 MG TABLET PO SCH ×2 (08:06→16:52)
[2016-12-12] MEDS: FUROSEMIDE 20 MG TABLET PO SCH (08:06)
[2016-12-12] MEDS: CHOLECALCIFEROL (VIT D3) 1,000 UNITS TABLET PO SCH (08:06)
[2016-12-12] MEDS: CITALOPRAM HYDROBROMIDE 20 MG TABLET PO SCH (08:06)
[2016-12-12] MEDS: NICOTINE 21 MG/24 HOUR PATCH TD SCH (08:06)
[2016-12-12] MEDS: IBUPROFEN 600 MG TABLET PO PRN ×2 (08:08→17:09)
[2016-12-12 08:12] VITALS: BP 114/57
[2016-12-12 17:29] VITALS: BP 128/71
[2016-12-12] MEDS: ZOLPIDEM TARTRATE 10 MG TABLET PO PRN (21:16)
[2016-12-12] MEDS ORDERED: TRIH5TAB2 PO (23:21)
[2016-12-13 05:57] VITALS: BP 155/90
[2016-12-13] MEDS ORDERED: POTASSIUM CHLORIDE 10 MEQ ER TABLET PO SCH (09:00)
== END 2016-12-13 07:15 | disposition home or self-care (01) | DRG 750 ==
LOC: BV PSY EVL 22:16 → AHU 12-03 00:05 → B2S 12-03 19:43
PROVIDERS: ADMIT Psychiatry & Neurology Psychiatry; ATTEND Psychiatry & Neurology Psychiatry
DX: F25.0 Schizoaffective disorder, bipolar type (principal); R45.851 Suicidal ideations; F15.20 Other stimulant dependence, uncomplicated; I10 Essential (primary) hypertension; J44.9 Chronic obstructive pulmonary disease, unspecified; J45.909 Unspecified asthma, uncomplicated; D64.9 Anemia, unspecified; K21.9 Gastro-esophageal reflux disease without esophagitis; H54.42 Blindness, left eye, normal vision right eye; M79.89 Other specified soft tissue disorders; E87.6 Hypokalemia; M54.5 Low back pain; E66.01 Morbid (severe) obesity due to excess calories; F17.210 Nicotine dependence, cigarettes, uncomplicated; M19.90 Unspecified osteoarthritis, unspecified site; R45.87 Impulsiveness; E55.9 Vitamin D deficiency, unspecified; F10.10 Alcohol abuse, uncomplicated; Z71.6 Tobacco abuse counseling; Z71.41 Alcohol abuse counseling and surveillance of alcoholic; Z59.0 Homelessness; Z91.19 Patient's noncompliance with other medical treatment and regimen; Z68.43 Body mass index [BMI] 50.0-59.9, adult; Z79.899 Other long term (current) drug therapy
CPT/HCPCS: 83036; 84132; 84439; 84443; 87081; 94640; 99285; J3535

== ENCOUNTER 2016-12-26 20:45 | Emergency (ER) | payer MEDICAID, OTHER ==
[~2016-12-26] VITALS: Ht 157.5 cm; Wt 136.0 kg
[~2016-12-26 20:45] MED LIST changes: -AMLO2.5T PO; -BENZ2TAB10 PO; +TRIH5TAB2 PO
[2016-12-26] MEDS ORDERED: HYDR-309 PO (20:51)
[2016-12-26] MEDS ORDERED: LISI-662 PO (20:51)
[2016-12-26 21:29] LABS: BASOPHILS % (AUTO) 0.8 % (0.0-2.0); EOSINOPHILS % (AUTO) 5.8 % (1.0-6.0); HEMATOCRIT 36.9 % (36-46); HEMOGLOBIN 11.6 g/dL (12.0-16.0); LYMPHOCYTES # (AUTO) 1.7 K/uL (1.0-4.8); LYMPHOCYTES % (AUTO) 29.3 % (22.0-44.0); MEAN CORPUSCULAR HEMOGLOBIN 26.6 pg (26.0-34.0); MEAN CORPUSCULAR HGB CONC 31.6 G/dL (31.0-37.0); MEAN CORPUSCULAR VOLUME 84 fL (80-100); MONOCYTES # (AUTO) 0.3 K/uL (0.1-1.0); NEUTROPHILS # (AUTO) 3.4 K/uL (1.8-7.7); NEUTROPHILS % (AUTO) 59.1 % (40.0-70.0); PLATELET COUNT (AUTO) 272 K/uL (150-450); RED BLOOD CELL COUNT(AUTO) 4.38 MIL/uL (4.00-5.20); RED CELL DISTRIBUTION WIDTH 16.3 % (11.5-14.5); WHITE BLOOD COUNT (AUTO) 5.7 K/uL (4.5-11.0)
[2016-12-26 22:46] LABS: CHLORIDE 104 mmol/L (98-107); SODIUM SERUM 143 mmol/L (136-145)
[2016-12-26 22:48] LABS: ALANINE AMINOTRANSFERASE 18 U/L (12-78); ALBUMIN 3.4 g/dL (3.4-5.0); ASPARTATE AMINOTRANSFERASE 10 U/L (15-37); CALCIUM, TOTAL 8.7 mg/dL (8.8-10.5); CREATININE 0.75 mg/dL (0.60-1.30); GLOMERULAR FILTR. RATE CALC > 60 mL/min (>60)
[2016-12-26 22:57] LABS: ANION GAP 12 mmol/L (8-16); BILIRUBIN,TOTAL 0.2 mg/dL (0.1-1.0); CARBON DIOXIDE 27 mmol/L (22-29); UREA NITROGEN, BLOOD 8 mg/dL (7-18)
[2016-12-27] MEDS ORDERED: HALOPERIDOL 5 MG TABLET PO ONE (02:45)
[2016-12-27] MEDS ORDERED: POTASSIUM CHLORIDE 20 MEQ ER TABLET PO ONE (02:45)
[2016-12-27] MEDS ORDERED: LORazepam 2 MG TABLET PO ONE (02:45)
[2016-12-27 03:12] VITALS: BP 109/79
== END 2016-12-27 03:15 | disposition home or self-care (01) ==
LOC: EMS 20:47
DX: F25.9 Schizoaffective disorder, unspecified (principal); F15.10 Other stimulant abuse, uncomplicated; F16.90 Hallucinogen use, unspecified, uncomplicated; I10 Essential (primary) hypertension; J44.9 Chronic obstructive pulmonary disease, unspecified; J45.909 Unspecified asthma, uncomplicated; F17.210 Nicotine dependence, cigarettes, uncomplicated
CPT/HCPCS: 36415; 80053; 80307; 85025; 99284; G0480

== ENCOUNTER 2017-01-20 21:30 | Inpatient (IN) | payer MEDICAID, OTHER ==
[~2017-01-20] VITALS: Ht 160 cm; Wt 120.2 kg
[~2017-01-20 21:30] MED LIST changes: -CHOL100034 PO; -CITA40TA14 PO; -FURO-152 PO; +HYDR-309 PO; +LISI-662 PO; -POTA-9 PO; -RISP3TAB44 PO; -TRIH5TAB2 PO
[2017-01-20] MEDS ORDERED: SODIUM CHLORIDE 0.9% 1,000 ML IV ONE ×2 (22:45→23:50)
[2017-01-20 22:51] LABS: BASOPHILS % (AUTO) 0.5 % (0.0-2.0); EOSINOPHILS % (AUTO) 8.9 % (1.0-6.0); HEMATOCRIT 39.5 % (36-46); HEMOGLOBIN 12.3 g/dL (12.0-16.0); LYMPHOCYTES # (AUTO) 1.7 K/uL (1.0-4.8); LYMPHOCYTES % (AUTO) 29.7 % (22.0-44.0); MEAN CORPUSCULAR HEMOGLOBIN 26.8 pg (26.0-34.0); MEAN CORPUSCULAR VOLUME 86 fL (80-100); MONOCYTES # (AUTO) 0.5 K/uL (0.1-1.0); MONOCYTES % (AUTO) 8.3 % (2.0-9.0); NEUTROPHILS # (AUTO) 3.1 K/uL (1.8-7.7); NEUTROPHILS % (AUTO) 52.6 % (40.0-70.0); PLATELET COUNT (AUTO) 249 K/uL (150-450); RBC MORPHOLOGY COMMENT ABNORMAL RBC MORPH; RED BLOOD CELL COUNT(AUTO) 4.58 MIL/uL (4.00-5.20); RED CELL DISTRIBUTION WIDTH 17.1 % (11.5-14.5); WHITE BLOOD COUNT (AUTO) 5.8 K/uL (4.5-11.0)
[2017-01-20 22:56] LABS: ANION GAP 5 mmol/L (8-16); CALCIUM, TOTAL 8.6 mg/dL (8.8-10.5); CARBON DIOXIDE 34 mmol/L (22-29); CHLORIDE 99 mmol/L (98-107); CREATININE 0.95 mg/dL (0.60-1.30); GLOMERULAR FILTR. RATE CALC > 60 mL/min (>60); SODIUM SERUM 138 mmol/L (136-145); UREA NITROGEN, BLOOD 10 mg/dL (7-18)
[2017-01-20 23:00] LABS: SALICYLATE 2.8 mg/dL (2.8-20.0)
[2017-01-20 23:01] LABS: ALANINE AMINOTRANSFERASE 17 U/L (12-78); ALBUMIN 3.4 g/dL (3.4-5.0); ASPARTATE AMINOTRANSFERASE 14 U/L (15-37); BILIRUBIN,TOTAL 0.5 mg/dL (0.1-1.0); TOTAL PROTEIN, SERUM 7.2 g/dL (6.4-8.2)
[2017-01-20 23:22] LABS: ACETAMINOPHEN < 2 mcg/mL (10-30)
[2017-01-20] MEDS ORDERED: HALOPERIDOL 5 MG TABLET PO PRN (23:45)
[2017-01-21] MEDS: POTASSIUM CHL 10 MEQ/WATER 50 ML IV SCH ×3 (04:51→07:13)
[2017-01-21 06:30] LABS: CHOL/HDL RATIO 2.3 (3.9-5.7)
[2017-01-21 07:50] LABS: APPEARANCE,URINE CLOUDY (CLEAR); GLUCOSE, URINE (UA) NEGATIVE (NEGATIVE); KETONES,URINE NEGATIVE (NEGATIVE); LEUKOCYTE ESTERASE ,URINE NEGATIVE (NEGATIVE); OCCULT BLOOD,URINE TRACE (NEGATIVE); PROTEIN,URINE NEGATIVE (NEGATIVE)
[2017-01-21 07:51] LABS: ADD UA MICROSCOPIC YES
[2017-01-21 08:03] LABS: SQUAMOUS EPITHELIAL CELL,UR Moderate /LPF (None Seen); WBC,URINE 0-2 /HPF (0-5)
[2017-01-21 08:05] LABS: URINALYSIS COMMENT FEW TRICHOMONAS SEEN
[2017-01-21 14:16] VITALS: BP 106/55
[2017-01-21 16:08] VITALS: BP 126/65
[2017-01-21] MEDS ORDERED: DICLOFENAC SODIUM 1% 100 GM GEL [2GM] TP PRN (17:45)
[2017-01-21] MEDS ORDERED: IBUPROFEN 400 MG TABLET PO PRN (18:15)
[2017-01-21] MEDS ORDERED: ACETAMINOPHEN 325 MG TABLET PO PRN (18:15)
[2017-01-21 18:20] VITALS: BP 128/75
[2017-01-21 19:25] VITALS: BP 122/68
[2017-01-22 06:56] VITALS: BP 130/82
[2017-01-22 08:34] VITALS: BP 106/64
[2017-01-22 09:28] LABS: ALANINE AMINOTRANSFERASE 16 U/L (12-78); ALBUMIN 3.2 g/dL (3.4-5.0); ANION GAP 5 mmol/L (8-16); ASPARTATE AMINOTRANSFERASE 9 U/L (15-37); BILIRUBIN,TOTAL 0.5 mg/dL (0.1-1.0); CALCIUM, TOTAL 8.9 mg/dL (8.8-10.5); CARBON DIOXIDE 34 mmol/L (22-29); CHLORIDE 103 mmol/L (98-107); CREATININE 0.71 mg/dL (0.60-1.30); GLOMERULAR FILTR. RATE CALC > 60 mL/min (>60); POTASSIUM 3.7 mmol/L (3.5-5.1); SODIUM SERUM 142 mmol/L (136-145); TOTAL PROTEIN, SERUM 6.6 g/dL (6.4-8.2); UREA NITROGEN, BLOOD 7 mg/dL (7-18)
[2017-01-22] MEDS: CITALOPRAM HYDROBROMIDE 20 MG TABLET PO SCH (11:50)
[2017-01-22 12:54] VITALS: BP 148/88
[2017-01-22] MEDS: TRIHEXYPHENIDYL HCL 5 MG TABLET PO SCH ×2 (13:08→16:14)
[2017-01-22] MEDS: LORazepam 2 MG TABLET PO PRN (13:14)
[2017-01-22 13:55] VITALS: BP 145/88
[2017-01-22] MEDS: RisperiDONE 3 MG TABLET PO SCH (16:14)
[2017-01-22 16:25] VITALS: BP 115/78
[2017-01-22] MEDS ORDERED: ACETAMINOPHEN 325 MG TABLET PO PRN (19:45)
[2017-01-22] MEDS ORDERED: ALBUTEROL SULFATE HFA 90 MCG/PUFF 8 GM INHALER IH PRN (20:00)
[2017-01-23 06:20] VITALS: BP 138/80
[2017-01-23 08:30] VITALS: BP 152/74
[2017-01-23] MEDS: RisperiDONE 3 MG TABLET PO SCH ×2 (08:35→17:41)
[2017-01-23] MEDS: TRIHEXYPHENIDYL HCL 5 MG TABLET PO SCH ×3 (08:35→17:40)
[2017-01-23] MEDS: CITALOPRAM HYDROBROMIDE 20 MG TABLET PO SCH (08:35)
[2017-01-23] MEDS: LISINOPRIL 20 MG TABLET PO SCH (08:35)
[2017-01-23 16:26] VITALS: BP 120/67
[2017-01-23] MEDS: IBUPROFEN 400 MG TABLET PO PRN (17:55)
[2017-01-23] MEDS: ZOLPIDEM TARTRATE 10 MG TABLET PO PRN (20:24)
[2017-01-24 00:24] VITALS: BP 114/60
[2017-01-24 08:15] VITALS: BP 131/74
[2017-01-24] MEDS: LISINOPRIL 20 MG TABLET PO SCH (08:32)
[2017-01-24] MEDS: RisperiDONE 3 MG TABLET PO SCH ×2 (08:32→17:05)
[2017-01-24] MEDS: CITALOPRAM HYDROBROMIDE 20 MG TABLET PO SCH (08:32)
[2017-01-24] MEDS: TRIHEXYPHENIDYL HCL 5 MG TABLET PO SCH ×3 (08:32→17:05)
[2017-01-24 08:33] LABS: HEMOGLOBIN A1C 5.5 % (4.5-6.2)
[2017-01-24] MEDS: IBUPROFEN 400 MG TABLET PO PRN ×2 (08:34→17:14)
[2017-01-24 09:00] LABS: CHOL/HDL RATIO 3.1 (3.9-5.7); THYROID STIMULATING HORMONE 0.36 uIU/mL (0.36-3.74)
[2017-01-24] MEDS: NICOTINE 14 MG/24 HOUR PATCH TD SCH (10:18)
[2017-01-24 16:00] VITALS: BP 134/70
[2017-01-24] MEDS: ZOLPIDEM TARTRATE 10 MG TABLET PO PRN (20:24)
[2017-01-25 06:26] VITALS: BP 135/86
[2017-01-25] MEDS: IBUPROFEN 400 MG TABLET PO PRN ×2 (06:30→22:55)
[2017-01-25 08:21] VITALS: BP 138/70
[2017-01-25] MEDS: LISINOPRIL 20 MG TABLET PO SCH (08:32)
[2017-01-25] MEDS: CITALOPRAM HYDROBROMIDE 20 MG TABLET PO SCH (08:32)
[2017-01-25] MEDS: NICOTINE 14 MG/24 HOUR PATCH TD SCH (08:32)
[2017-01-25] MEDS: TRIHEXYPHENIDYL HCL 5 MG TABLET PO SCH ×3 (08:32→17:25)
[2017-01-25] MEDS: RisperiDONE 3 MG TABLET PO SCH ×2 (08:32→17:25)
[2017-01-25] MEDS: LORazepam 2 MG TABLET PO PRN ×2 (12:41→22:56)
[2017-01-25 22:50] VITALS: BP 134/72
[2017-01-26 06:54] VITALS: BP 130/77
[2017-01-26 08:30] VITALS: BP 137/69
[2017-01-26] MEDS: NICOTINE 14 MG/24 HOUR PATCH TD SCH (08:34)
[2017-01-26] MEDS: RisperiDONE 3 MG TABLET PO SCH ×2 (08:34→16:31)
[2017-01-26] MEDS: LISINOPRIL 20 MG TABLET PO SCH (08:35)
[2017-01-26] MEDS: TRIHEXYPHENIDYL HCL 5 MG TABLET PO SCH ×3 (08:35→16:31)
[2017-01-26] MEDS: CITALOPRAM HYDROBROMIDE 20 MG TABLET PO SCH (08:35)
[2017-01-26] MEDS: LORazepam 2 MG TABLET PO PRN ×2 (10:02→16:42)
[2017-01-26 16:35] VITALS: BP 116/63
[2017-01-26] MEDS: IBUPROFEN 400 MG TABLET PO PRN (16:43)
[2017-01-27 03:11] VITALS: BP 138/90
[2017-01-27] MEDS: LORazepam 2 MG TABLET PO PRN (03:11)
[2017-01-27] MEDS: RisperiDONE 3 MG TABLET PO SCH ×2 (08:09→16:26)
[2017-01-27] MEDS: LISINOPRIL 20 MG TABLET PO SCH (08:09)
[2017-01-27] MEDS: TRIHEXYPHENIDYL HCL 5 MG TABLET PO SCH ×3 (08:10→16:26)
[2017-01-27] MEDS: CITALOPRAM HYDROBROMIDE 20 MG TABLET PO SCH (08:10)
[2017-01-27] MEDS: NICOTINE 14 MG/24 HOUR PATCH TD SCH (08:10)
[2017-01-27 16:13] VITALS: BP 127/67
[2017-01-27] MEDS: IBUPROFEN 400 MG TABLET PO PRN (16:32)
[2017-01-28 04:53] VITALS: BP 139/88
[2017-01-28] MEDS: LORazepam 2 MG TABLET PO PRN (04:58)
[2017-01-28 08:43] VITALS: BP 126/95
[2017-01-28] MEDS: TRIHEXYPHENIDYL HCL 5 MG TABLET PO SCH ×2 (10:18→12:05)
[2017-01-28] MEDS: RisperiDONE 3 MG TABLET PO SCH (10:18)
[2017-01-28] MEDS: LISINOPRIL 20 MG TABLET PO SCH (10:19)
[2017-01-28] MEDS: NICOTINE 14 MG/24 HOUR PATCH TD SCH (10:19)
[2017-01-28] MEDS: CITALOPRAM HYDROBROMIDE 20 MG TABLET PO SCH (10:20)
[2017-01-28] MEDS: IBUPROFEN 400 MG TABLET PO PRN (12:19)
[2017-01-28] MEDS ORDERED: TRIH5TAB2 PO (12:36)
[2017-01-28] MEDS ORDERED: CITA20TA9 PO (12:36)
[2017-01-28] MEDS ORDERED: RISP3 PO (12:36)
== END 2017-01-28 14:30 | disposition home or self-care (01) | DRG 750 ==
LOC: EMS 21:34 → B2S 01-21 13:02 → EMS 01-21 13:40
PROVIDERS: ADMIT Psychiatry & Neurology Child & Adolescent Psychiatry; ATTEND Psychiatry & Neurology Child & Adolescent Psychiatry
DX: F25.1 Schizoaffective disorder, depressive type (principal); J44.9 Chronic obstructive pulmonary disease, unspecified; I10 Essential (primary) hypertension; K21.9 Gastro-esophageal reflux disease without esophagitis; F15.90 Other stimulant use, unspecified, uncomplicated; E87.6 Hypokalemia; T43.592A Poisoning by other antipsychotics and neuroleptics, intentional self-harm, initial encounter; Y92.009 Unspecified place in unspecified non-institutional (private) residence as the place of occurrence of the external cause; Z91.14 Patient's other noncompliance with medication regimen
CPT/HCPCS: 83036; 84443; 87081; 96360; 96361; 99285; G0480; G0481; J3480; J7030

== ENCOUNTER 2017-02-03 21:42 | Emergency (ER) | payer MEDICAID, OTHER ==
[~2017-02-03] VITALS: Ht 157.5 cm; Wt 131.4 kg
[~2017-02-03 21:42] MED LIST changes: +CITA20TA9 PO; -HYDR-309 PO; +RISP3 PO; +TRIH5TAB2 PO
[2017-02-03 22:21] LABS: BASOPHILS # (AUTO) 0.07 K/uL (0.00-0.20); BASOPHILS % (AUTO) 1.2 % (0.0-2.0); EOSINOPHILS # (AUTO) 0.53 K/uL (0.00-0.70); EOSINOPHILS % (AUTO) 8.68 % (1.0-6.0); HEMATOCRIT 38.6 % (36-46); HEMOGLOBIN 12.1 g/dL (12.0-16.0); LYMPHOCYTES # (AUTO) 2.9 K/uL (1.0-4.8); LYMPHOCYTES % (AUTO) 47.7 % (22.0-44.0); MEAN CORPUSCULAR HEMOGLOBIN 27.3 pg (26.0-34.0); MEAN CORPUSCULAR HGB CONC 31.4 G/dL (31.0-37.0); MEAN CORPUSCULAR VOLUME 87 fL (80-100); MONOCYTES # (AUTO) 0.5 K/uL (0.1-1.0); MONOCYTES % (AUTO) 7.6 % (2.0-9.0); NEUTROPHILS # (AUTO) 2.1 K/uL (1.8-7.7); NEUTROPHILS % (AUTO) 34.7 % (40.0-70.0); PLATELET COUNT (AUTO) 298 K/uL (150-450); RED BLOOD CELL COUNT(AUTO) 4.44 MIL/uL (4.00-5.20); WHITE BLOOD COUNT (AUTO) 6.1 K/uL (4.5-11.0)
[2017-02-03 22:24] LABS: ANION GAP 10 mmol/L (8-16); CALCIUM, TOTAL 8.9 mg/dL (8.8-10.5); CARBON DIOXIDE 29 mmol/L (22-29); CHLORIDE 103 mmol/L (98-107); CREATININE 0.85 mg/dL (0.60-1.30); GLOMERULAR FILTR. RATE CALC > 60 mL/min (>60); POTASSIUM 3.5 mmol/L (3.5-5.1); SODIUM SERUM 142 mmol/L (136-145); UREA NITROGEN, BLOOD 11 mg/dL (7-18)
[2017-02-03 22:30] LABS: ALANINE AMINOTRANSFERASE 17 U/L (12-78); ALBUMIN 3.3 g/dL (3.4-5.0); ASPARTATE AMINOTRANSFERASE 11 U/L (15-37); BILIRUBIN,TOTAL 0.1 mg/dL (0.1-1.0); TOTAL PROTEIN, SERUM 7.3 g/dL (6.4-8.2)
[2017-02-03 22:32] LABS: ACETAMINOPHEN < 2 mcg/mL (10-30)
[2017-02-03 22:43] LABS: SALICYLATE 2.6 mg/dL (2.8-20.0)
[2017-02-04 03:00] VITALS: BP 116/76
== END 2017-02-04 03:17 | disposition home or self-care (01) ==
LOC: EMS 21:44
DX: R41.82 Altered mental status, unspecified (principal); F10.129 Alcohol abuse with intoxication, unspecified; F15.10 Other stimulant abuse, uncomplicated; F20.9 Schizophrenia, unspecified; F32.9 Major depressive disorder, single episode, unspecified; J44.9 Chronic obstructive pulmonary disease, unspecified; J45.909 Unspecified asthma, uncomplicated; I10 Essential (primary) hypertension; F16.90 Hallucinogen use, unspecified, uncomplicated; F17.210 Nicotine dependence, cigarettes, uncomplicated; Y90.5 Blood alcohol level of 100-119 mg/100 ml
CPT/HCPCS: 36415; 80053; 80307; 84703; 85025; 93005; 99285; 99406; G0480; G0481

== ENCOUNTER 2017-02-06 21:29 | Inpatient (IN) | payer MEDICAID, OTHER ==
[~2017-02-06] VITALS: Ht 157.5 cm; Wt 120.7 kg
[2017-02-07] MEDS ORDERED: HALOPERIDOL 5 MG TABLET PO PRN (17:15)
[2017-02-07 17:17] VITALS: BP 157/87
[2017-02-07] MEDS: LORazepam 2 MG TABLET PO PRN (18:17)
[2017-02-07 20:26] VITALS: BP 146/78
[2017-02-08 04:17] VITALS: BP 140/72
[2017-02-08] MEDS: LORazepam 2 MG TABLET PO PRN ×2 (08:14→16:15)
[2017-02-08] MEDS: LISINOPRIL 20 MG TABLET PO SCH (08:14)
[2017-02-08 08:19] VITALS: BP 152/94
[2017-02-08 08:19] LABS: BASOPHILS % (AUTO) 0.5 % (0.0-2.0); EOSINOPHILS % (AUTO) 3.3 % (1.0-6.0); HEMATOCRIT 34.3 % (36-46); HEMOGLOBIN 11.4 g/dL (12.0-16.0); LYMPHOCYTES % (AUTO) 31.7 % (22.0-44.0); MEAN CORPUSCULAR HEMOGLOBIN 28.5 pg (26.0-34.0); MEAN CORPUSCULAR HGB CONC 33.3 G/dL (31.0-37.0); MEAN CORPUSCULAR VOLUME 86 fL (80-100); MONOCYTES # (AUTO) 0.5 K/uL (0.1-1.0); MONOCYTES % (AUTO) 7.4 % (2.0-9.0); NEUTROPHILS # (AUTO) 3.6 K/uL (1.8-7.7); NEUTROPHILS % (AUTO) 57.1 % (40.0-70.0); PLATELET COUNT (AUTO) 286 K/uL (150-450); RED CELL DISTRIBUTION WIDTH 16.4 % (11.5-14.5); WHITE BLOOD COUNT (AUTO) 6.3 K/uL (4.5-11.0)
[2017-02-08 08:24] LABS: HEMOGLOBIN A1C 5.5 % (4.5-6.2)
[2017-02-08 08:55] LABS: ALANINE AMINOTRANSFERASE 16 U/L (12-78); ALBUMIN 2.7 g/dL (3.4-5.0); ANION GAP 5 mmol/L (8-16); ASPARTATE AMINOTRANSFERASE 12 U/L (15-37); BILIRUBIN,TOTAL 0.2 mg/dL (0.1-1.0); CALCIUM, TOTAL 7.7 mg/dL (8.8-10.5); CARBON DIOXIDE 30 mmol/L (22-29); CHLORIDE 109 mmol/L (98-107); CHOL/HDL RATIO 1.9 (3.9-5.7); CREATININE 0.75 mg/dL (0.60-1.30); GLOMERULAR FILTR. RATE CALC > 60 mL/min (>60); POTASSIUM 3.8 mmol/L (3.5-5.1); SODIUM SERUM 144 mmol/L (136-145); THYROID STIMULATING HORMONE 1.09 uIU/mL (0.36-3.74); TOTAL PROTEIN, SERUM 5.9 g/dL (6.4-8.2); UREA NITROGEN, BLOOD 12 mg/dL (7-18)
[2017-02-08 09:48] VITALS: BP 140/85
[2017-02-08] MEDS: CITALOPRAM HYDROBROMIDE 20 MG TABLET PO SCH (13:30)
[2017-02-08] MEDS ORDERED: ACETAMINOPHEN 325 MG TABLET PO PRN (15:45)
[2017-02-08] MEDS ORDERED: ONDANSETRON HCL 4 MG TABLET PO PRN (15:45)
[2017-02-08] MEDS ORDERED: BENZOCAINE/MENTHOL LOZENGE MM PRN (15:45)
[2017-02-08] MEDS ORDERED: LOPERAMIDE HCL 2 MG CAPSULE PO PRN (15:45)
[2017-02-08] MEDS ORDERED: ALBUTEROL SULFATE HFA 90 MCG/PUFF 8 GM INHALER IH PRN (15:45)
[2017-02-08] MEDS ORDERED: CloNIDine HCL 0.1 MG TABLET PO PRN (15:45)
[2017-02-08] MEDS ORDERED: MAGNESIUM HYDROXIDE SUSPENSION 30 ML UDCUP PO PRN (15:45)
[2017-02-08] MEDS ORDERED: BACITRACIN 28.4 GM OINTMENT TP PRN (15:45)
[2017-02-08] MEDS ORDERED: MAG HYDROX/AL HYDROX/SIMETH ES 30 ML SUSPENSION UDCUP PO PRN (15:45)
[2017-02-08] MEDS ORDERED: PETROLATUM,WHITE 71 GM JELLY TP PRN (15:45)
[2017-02-08] MEDS: TRIHEXYPHENIDYL HCL 5 MG TABLET PO SCH (16:15)
[2017-02-08] MEDS: RisperiDONE 3 MG TABLET PO SCH (16:15)
[2017-02-08 16:29] VITALS: BP 148/77
[2017-02-08] MEDS: ZOLPIDEM TARTRATE 10 MG TABLET PO PRN (22:01)
[2017-02-09 06:00] VITALS: BP 134/71
[2017-02-09 08:11] VITALS: BP 152/80
[2017-02-09] MEDS: CITALOPRAM HYDROBROMIDE 20 MG TABLET PO SCH (08:36)
[2017-02-09] MEDS: TRIHEXYPHENIDYL HCL 5 MG TABLET PO SCH ×3 (08:36→16:19)
[2017-02-09] MEDS: CHOLECALCIFEROL (VIT D3) 1,000 UNITS TABLET PO SCH (08:36)
[2017-02-09] MEDS: RisperiDONE 3 MG TABLET PO SCH ×2 (08:36→16:19)
[2017-02-09] MEDS: LISINOPRIL 20 MG TABLET PO SCH (08:36)
[2017-02-09] MEDS: LORazepam 2 MG TABLET PO PRN ×2 (08:37→16:20)
[2017-02-09 11:04] VITALS: BP 146/68
[2017-02-09 15:57] VITALS: BP 156/96
[2017-02-09 16:01] VITALS: BP 156/96
[2017-02-09 20:32] VITALS: BP 142/88
[2017-02-09] MEDS: IBUPROFEN 600 MG TABLET PO PRN (20:32)
[2017-02-09] MEDS: ZOLPIDEM TARTRATE 10 MG TABLET PO PRN (20:50)
[2017-02-10 00:38] VITALS: BP 191/106
[2017-02-10 01:43] VITALS: BP 146/72
[2017-02-10 08:05] VITALS: BP 124/66
[2017-02-10] MEDS: LISINOPRIL 20 MG TABLET PO SCH (09:21)
[2017-02-10] MEDS: RisperiDONE 3 MG TABLET PO SCH ×2 (09:21→16:53)
[2017-02-10] MEDS: CHOLECALCIFEROL (VIT D3) 1,000 UNITS TABLET PO SCH (09:21)
[2017-02-10] MEDS: CITALOPRAM HYDROBROMIDE 20 MG TABLET PO SCH (09:21)
[2017-02-10] MEDS: TRIHEXYPHENIDYL HCL 5 MG TABLET PO SCH ×3 (09:21→16:52)
[2017-02-10 16:02] VITALS: BP 156/85
[2017-02-10] MEDS: LORazepam 2 MG TABLET PO PRN (16:53)
[2017-02-10] MEDS: ZOLPIDEM TARTRATE 10 MG TABLET PO PRN (21:06)
[2017-02-10 21:32] VITALS: BP 129/69
[2017-02-11 06:15] VITALS: BP 142/76
[2017-02-11 08:38] VITALS: BP 139/86
[2017-02-11] MEDS: CITALOPRAM HYDROBROMIDE 20 MG TABLET PO SCH (09:07)
[2017-02-11] MEDS: CHOLECALCIFEROL (VIT D3) 1,000 UNITS TABLET PO SCH (09:07)
[2017-02-11] MEDS: TRIHEXYPHENIDYL HCL 5 MG TABLET PO SCH ×3 (09:07→16:32)
[2017-02-11] MEDS: RisperiDONE 3 MG TABLET PO SCH ×2 (09:08→16:32)
[2017-02-11] MEDS: LISINOPRIL 20 MG TABLET PO SCH (09:08)
[2017-02-11] MEDS: NICOTINE 14 MG/24 HOUR PATCH TD SCH (09:09)
[2017-02-11] MEDS: LORazepam 2 MG TABLET PO PRN (13:50)
[2017-02-11 16:25] VITALS: BP 153/105
[2017-02-11] MEDS: ZOLPIDEM TARTRATE 10 MG TABLET PO PRN (21:39)
[2017-02-12 03:06] VITALS: BP 140/98
[2017-02-12 08:08] VITALS: BP 158/95
[2017-02-12] MEDS: TRIHEXYPHENIDYL HCL 5 MG TABLET PO SCH ×3 (08:29→16:12)
[2017-02-12] MEDS: RisperiDONE 3 MG TABLET PO SCH ×2 (08:29→16:12)
[2017-02-12] MEDS: CHOLECALCIFEROL (VIT D3) 1,000 UNITS TABLET PO SCH (08:29)
[2017-02-12] MEDS: NICOTINE 14 MG/24 HOUR PATCH TD SCH (08:29)
[2017-02-12] MEDS: LISINOPRIL 20 MG TABLET PO SCH (08:29)
[2017-02-12] MEDS: CITALOPRAM HYDROBROMIDE 20 MG TABLET PO SCH (08:29)
[2017-02-12 11:00] VITALS: BP 135/76
[2017-02-12 13:23] VITALS: BP 133/89
[2017-02-12] MEDS: IBUPROFEN 600 MG TABLET PO PRN (13:23)
[2017-02-12] MEDS: LORazepam 2 MG TABLET PO PRN (15:58)
[2017-02-12 16:00] VITALS: BP 139/81
[2017-02-13 02:32] VITALS: BP 125/89
[2017-02-13] MEDS: LORazepam 2 MG TABLET PO PRN ×2 (02:34→16:17)
[2017-02-13] MEDS: LISINOPRIL 20 MG TABLET PO SCH (08:18)
[2017-02-13] MEDS: RisperiDONE 3 MG TABLET PO SCH ×2 (08:18→16:17)
[2017-02-13] MEDS: CHOLECALCIFEROL (VIT D3) 1,000 UNITS TABLET PO SCH (08:18)
[2017-02-13] MEDS: CITALOPRAM HYDROBROMIDE 20 MG TABLET PO SCH (08:18)
[2017-02-13] MEDS: TRIHEXYPHENIDYL HCL 5 MG TABLET PO SCH ×3 (08:18→16:17)
[2017-02-13] MEDS: NICOTINE 14 MG/24 HOUR PATCH TD SCH (08:19)
[2017-02-13 08:32] VITALS: BP 132/70
[2017-02-13] MEDS: TraMADol HCL 50 MG TABLET PO PRN (12:44)
[2017-02-13] MEDS: IBUPROFEN 600 MG TABLET PO PRN (16:17)
[2017-02-13 16:35] VITALS: BP 124/72
[2017-02-13 17:17] VITALS: BP 124/72
[2017-02-14 06:42] VITALS: BP 128/82
[2017-02-14 08:36] VITALS: BP 144/76
[2017-02-14] MEDS: TraMADol HCL 50 MG TABLET PO PRN (08:36)
[2017-02-14] MEDS: LISINOPRIL 20 MG TABLET PO SCH (08:36)
[2017-02-14] MEDS: CHOLECALCIFEROL (VIT D3) 1,000 UNITS TABLET PO SCH (08:36)
[2017-02-14] MEDS: CITALOPRAM HYDROBROMIDE 20 MG TABLET PO SCH (08:36)
[2017-02-14] MEDS: RisperiDONE 3 MG TABLET PO SCH ×2 (08:36→16:52)
[2017-02-14] MEDS: NICOTINE 14 MG/24 HOUR PATCH TD SCH (08:36)
[2017-02-14] MEDS: TRIHEXYPHENIDYL HCL 5 MG TABLET PO SCH ×3 (08:36→16:51)
[2017-02-14 16:10] VITALS: BP 124/76
[2017-02-14] MEDS: LORazepam 2 MG TABLET PO PRN (16:52)
[2017-02-14] MEDS ORDERED: DICLOFENAC SODIUM 1% 100 GM GEL [2GM] TP PRN (21:00)
[2017-02-14] MEDS: ZOLPIDEM TARTRATE 10 MG TABLET PO PRN (21:04)
[2017-02-15] MEDS: IBUPROFEN 600 MG TABLET PO PRN (04:20)
[2017-02-15 05:29] VITALS: BP 145/72
[2017-02-15 08:20] VITALS: BP 114/62
[2017-02-15] MEDS: CHOLECALCIFEROL (VIT D3) 1,000 UNITS TABLET PO SCH (08:51)
[2017-02-15] MEDS: TRIHEXYPHENIDYL HCL 5 MG TABLET PO SCH ×3 (08:51→16:17)
[2017-02-15] MEDS: RisperiDONE 3 MG TABLET PO SCH ×2 (08:51→16:17)
[2017-02-15] MEDS: LISINOPRIL 20 MG TABLET PO SCH (08:51)
[2017-02-15] MEDS: NICOTINE 14 MG/24 HOUR PATCH TD SCH (08:53)
[2017-02-15] MEDS: CITALOPRAM HYDROBROMIDE 20 MG TABLET PO SCH (08:53)
[2017-02-15] MEDS: LORazepam 2 MG TABLET PO PRN (14:13)
[2017-02-15 16:47] VITALS: BP 111/69
[2017-02-15] MEDS: ZOLPIDEM TARTRATE 10 MG TABLET PO PRN (21:12)
[2017-02-16 01:30] VITALS: BP 110/64
[2017-02-16] MEDS: LORazepam 2 MG TABLET PO PRN (01:32)
[2017-02-16] MEDS: RisperiDONE 3 MG TABLET PO SCH (08:11)
[2017-02-16] MEDS: CHOLECALCIFEROL (VIT D3) 1,000 UNITS TABLET PO SCH (08:11)
[2017-02-16] MEDS: LISINOPRIL 20 MG TABLET PO SCH (08:11)
[2017-02-16] MEDS: NICOTINE 14 MG/24 HOUR PATCH TD SCH (08:11)
[2017-02-16] MEDS: CITALOPRAM HYDROBROMIDE 20 MG TABLET PO SCH (08:11)
[2017-02-16] MEDS: TRIHEXYPHENIDYL HCL 5 MG TABLET PO SCH (08:11)
[2017-02-16 08:32] VITALS: BP 105/57
[2017-02-16] MEDS ORDERED: VITAD1000 PO (09:07)
== END 2017-02-16 12:02 | disposition home or self-care (01) | DRG 750 ==
LOC: B3A 02-07 17:10
PROVIDERS: ADMIT Psychiatry & Neurology Psychiatry; ATTEND Psychiatry & Neurology Psychiatry
DX: F25.1 Schizoaffective disorder, depressive type (principal); Z68.42 Body mass index [BMI] 45.0-49.9, adult; I10 Essential (primary) hypertension; E55.9 Vitamin D deficiency, unspecified; F60.3 Borderline personality disorder; J44.9 Chronic obstructive pulmonary disease, unspecified; K21.9 Gastro-esophageal reflux disease without esophagitis; Z72.0 Tobacco use; E66.01 Morbid (severe) obesity due to excess calories; F10.10 Alcohol abuse, uncomplicated; F15.10 Other stimulant abuse, uncomplicated; G47.00 Insomnia, unspecified; M25.552 Pain in left hip
CPT/HCPCS: 83036; 84439; 84443; 87081; J3535

== ENCOUNTER 2017-05-25 21:51 | Emergency (ER) | payer MEDICAID ==
[~2017-05-25] VITALS: Ht 157.5 cm; Wt 124.5 kg
[~2017-05-25 21:51] MED LIST changes: +LISI-661 PO; -LISI-662 PO; +TRAZ-144 PO; +VITAD1000 PO
[2017-05-25] MEDS ORDERED: ASPIRIN 81 MG CHEWABLE TABLET PO ONE (22:30)
[2017-05-25 22:50] LABS: ANION GAP 6 mmol/L (8-16); CALCIUM, TOTAL 8.6 mg/dL (8.8-10.5); CARBON DIOXIDE 28 mmol/L (22-29); CHLORIDE 104 mmol/L (98-107); CREATININE 0.63 mg/dL (0.60-1.30); GLOMERULAR FILTR. RATE CALC > 60 mL/min (>60); POTASSIUM 3.2 mmol/L (3.5-5.1); SODIUM SERUM 138 mmol/L (136-145); UREA NITROGEN, BLOOD 11 mg/dL (7-18)
[2017-05-25 22:55] LABS: ALANINE AMINOTRANSFERASE 18 U/L (12-78); ALBUMIN 3.4 g/dL (3.4-5.0); ASPARTATE AMINOTRANSFERASE 11 U/L (15-37); BILIRUBIN,TOTAL 0.2 mg/dL (0.1-1.0); TOTAL PROTEIN, SERUM 7.4 g/dL (6.4-8.2)
[2017-05-25 23:08] LABS: BASOPHILS # (AUTO) 0.04 K/uL (0.00-0.20); BASOPHILS % (AUTO) 0.6 % (0.0-2.0); EOSINOPHILS # (AUTO) 0.47 K/uL (0.00-0.70); EOSINOPHILS % (AUTO) 7.46 % (1.0-6.0); HEMATOCRIT 34.4 % (36-46); HEMOGLOBIN 11.1 g/dL (12.0-16.0); LYMPHOCYTES # (AUTO) 2.6 K/uL (1.0-4.8); LYMPHOCYTES % (AUTO) 41.7 % (22.0-44.0); MEAN CORPUSCULAR HEMOGLOBIN 27.6 pg (26.0-34.0); MEAN CORPUSCULAR HGB CONC 32.2 G/dL (31.0-37.0); MEAN CORPUSCULAR VOLUME 86 fL (80-100); MONOCYTES # (AUTO) 0.5 K/uL (0.1-1.0); MONOCYTES % (AUTO) 8.4 % (2.0-9.0); NEUTROPHILS # (AUTO) 2.6 K/uL (1.8-7.7); NEUTROPHILS % (AUTO) 41.9 % (40.0-70.0); PLATELET COUNT (AUTO) 274 K/uL (150-450); RED BLOOD CELL COUNT(AUTO) 4.01 MIL/uL (4.00-5.20); RED CELL DISTRIBUTION WIDTH 15.7 % (11.5-14.5); WHITE BLOOD COUNT (AUTO) 6.2 K/uL (4.5-11.0)
[2017-05-25] MEDS ORDERED: ALBUTEROL SULFATE 5 MG/ML 20 ML NEB SOLN [BULK] NEB ONE (23:15)
[2017-05-25] MEDS ORDERED: POTASSIUM CHLORIDE 20 MEQ ER TABLET PO ONE (23:15)
[2017-05-25] MEDS ORDERED: 0.9% SODIUM CHLORIDE 5 ML NEB SOLUTION NEB ONE (23:27)
[2017-05-26 01:10] VITALS: BP 117/61
[2017-09-01] MEDS ORDERED: QUET100T PO (07:19)
[2017-09-09] MEDS ORDERED: OMEP20 PO (13:44)
[2017-09-10] MEDS ORDERED: DULO20CA30 PO ×2 (10:51→16:12)
[2017-09-10] MEDS ORDERED: PROP20 PO ×2 (10:51→16:12)
[2017-09-10] MEDS ORDERED: NALT50TA PO (10:51)
[2017-09-10] MEDS ORDERED: OLAN10TA20 PO (10:51)
[2017-09-10] MEDS ORDERED: LISI-662 PO (16:12)
[2017-09-10] MEDS ORDERED: NALT50TA6 PO (16:12)
[2017-09-10] MEDS ORDERED: OLAN10TA3 PO (16:12)
[2017-09-10] MEDS ORDERED: VITAD1000 PO (16:12)
== END 2017-05-26 02:05 | disposition home or self-care (01) ==
LOC: EMS 21:54
DX: J45.909 Unspecified asthma, uncomplicated (principal); M79.605 Pain in left leg; J44.9 Chronic obstructive pulmonary disease, unspecified; I10 Essential (primary) hypertension; F17.210 Nicotine dependence, cigarettes, uncomplicated; E66.9 Obesity, unspecified; Z68.43 Body mass index [BMI] 50.0-59.9, adult
CPT/HCPCS: 36415; 71010; 80053; 84484; 84703; 85025; 94640; 99285; J7611

== ENCOUNTER 2017-06-25 00:53 | Inpatient (IN) | payer MEDICAID ==
[~2017-06-25] VITALS: Ht 160 cm; Wt 121.2 kg
[2017-06-25] MEDS ORDERED: QUEtiapine FUMARATE 100 MG TABLET PO PRN (01:45)
[2017-06-25 03:38] VITALS: BP 138/90
[2017-06-25] MEDS ORDERED: NICOTINE 7 MG/24 HOUR PATCH TD SCH (04:28)
[2017-06-25 08:37] VITALS: BP 123/68
[2017-06-25] MEDS: NICOTINE 7 MG/24 HOUR PATCH TD SCH (08:58)
[2017-06-25] MEDS ORDERED: MAG HYDROX/AL HYDROX/SIMETH ES 30 ML SUSPENSION UDCUP PO PRN (09:00)
[2017-06-25] MEDS ORDERED: ACETAMINOPHEN 325 MG TABLET PO PRN (09:00)
[2017-06-25] MEDS ORDERED: ALBUTEROL SULFATE HFA 90 MCG/PUFF 8 GM INHALER IH PRN (09:00)
[2017-06-25] MEDS ORDERED: LOPERAMIDE HCL 2 MG CAPSULE PO PRN ×2 (09:00→13:30)
[2017-06-25] MEDS ORDERED: CloNIDine HCL 0.1 MG TABLET PO PRN (09:00)
[2017-06-25] MEDS ORDERED: PETROLATUM,WHITE 71 GM JELLY TP PRN (09:00)
[2017-06-25] MEDS ORDERED: BENZOCAINE/MENTHOL LOZENGE MM PRN (09:00)
[2017-06-25] MEDS ORDERED: BACITRACIN 28.4 GM OINTMENT TP PRN (09:00)
[2017-06-25] MEDS ORDERED: ONDANSETRON HCL 4 MG TABLET PO PRN (09:00)
[2017-06-25] MEDS ORDERED: MAGNESIUM HYDROXIDE SUSPENSION 30 ML UDCUP PO PRN (09:00)
[2017-06-25] MEDS: CHOLECALCIFEROL (VIT D3) 1,000 UNITS TABLET PO SCH (09:32)
[2017-06-25] MEDS: OMEPRAZOLE 20 MG CAPSULE PO SCH (09:32)
[2017-06-25] MEDS: LISINOPRIL 10 MG TABLET PO SCH (09:32)
[2017-06-25] MEDS: DOCUSATE SODIUM 100 MG CAPSULE PO SCH (09:33)
[2017-06-25] MEDS: IBUPROFEN 600 MG TABLET PO PRN ×2 (09:33→18:11)
[2017-06-25] MEDS: LORazepam 1 MG TABLET PO PRN (11:25)
[2017-06-25] MEDS ORDERED: GuaiFENesin/D-METHORPHAN [SUGAR-FREE] 200-20MG/10 ML SYRUP UDCUP PO PRN (13:30)
[2017-06-25] MEDS ORDERED: HydrOXYzine PAMOATE 50 MG CAPSULE PO PRN (13:30)
[2017-06-25 16:11] VITALS: BP 138/86
[2017-06-25] MEDS: THIAMINE HCL 100 MG TABLET PO SCH (17:23)
[2017-06-25 18:05] VITALS: BP 137/76
[2017-06-25] MEDS ORDERED: QUEtiapine FUMARATE 200 MG TABLET PO SCH (21:00)
[2017-06-26 00:16] VITALS: BP 138/78
[2017-06-26 03:47] VITALS: BP 129/68
[2017-06-26] MEDS: IBUPROFEN 600 MG TABLET PO PRN ×2 (03:49→14:20)
[2017-06-26 07:53] LABS: BASOPHILS % (AUTO) 0.6 % (0.0-2.0); HEMATOCRIT 34.3 % (36-46); HEMOGLOBIN 11.4 g/dL (12.0-16.0); LYMPHOCYTES # (AUTO) 2.2 K/uL (1.0-4.8); LYMPHOCYTES % (AUTO) 42.3 % (22.0-44.0); MEAN CORPUSCULAR HEMOGLOBIN 28.6 pg (26.0-34.0); MEAN CORPUSCULAR HGB CONC 33.2 G/dL (31.0-37.0); MEAN CORPUSCULAR VOLUME 86 fL (80-100); MONOCYTES # (AUTO) 0.5 K/uL (0.1-1.0); MONOCYTES % (AUTO) 9.1 % (2.0-9.0); NEUTROPHILS # (AUTO) 2.1 K/uL (1.8-7.7); PLATELET COUNT (AUTO) 244 K/uL (150-450); RED BLOOD CELL COUNT(AUTO) 3.98 MIL/uL (4.00-5.20); RED CELL DISTRIBUTION WIDTH 16.2 % (11.5-14.5); WHITE BLOOD COUNT (AUTO) 5.1 K/uL (4.5-11.0)
[2017-06-26 08:04] LABS: HEMOGLOBIN A1C 5.7 % (4.5-6.2)
[2017-06-26 08:19] VITALS: BP 100/60
[2017-06-26 08:32] LABS: ALANINE AMINOTRANSFERASE 15 U/L (12-78); ALBUMIN 2.8 g/dL (3.4-5.0); ANION GAP 4 mmol/L (8-16); ASPARTATE AMINOTRANSFERASE 12 U/L (15-37); BILIRUBIN,TOTAL 0.3 mg/dL (0.1-1.0); CALCIUM, TOTAL 8.5 mg/dL (8.8-10.5); CARBON DIOXIDE 33 mmol/L (22-29); CHLORIDE 103 mmol/L (98-107); CHOL/HDL RATIO 2.5 (3.9-5.7); CREATININE 0.58 mg/dL (0.60-1.30); GLOMERULAR FILTR. RATE CALC > 60 mL/min (>60); SODIUM SERUM 140 mmol/L (136-145); THYROID STIMULATING HORMONE 0.81 uIU/mL (0.36-3.74); TOTAL PROTEIN, SERUM 5.7 g/dL (6.4-8.2); UREA NITROGEN, BLOOD 17 mg/dL (7-18)
[2017-06-26] MEDS: LISINOPRIL 10 MG TABLET PO SCH ×2 (09:00→09:29)
[2017-06-26] MEDS: DOCUSATE SODIUM 100 MG CAPSULE PO SCH (09:28)
[2017-06-26] MEDS: NALTREXONE HCL 50 MG TABLET PO SCH (09:28)
[2017-06-26] MEDS: CHOLECALCIFEROL (VIT D3) 1,000 UNITS TABLET PO SCH (09:28)
[2017-06-26] MEDS: FOLIC ACID 1 MG TABLET PO SCH (09:28)
[2017-06-26] MEDS: MULTIVITAMINS WITH MINERALS, THERAPEUTIC TABLET PO SCH (09:28)
[2017-06-26] MEDS: OMEPRAZOLE 20 MG CAPSULE PO SCH (09:28)
[2017-06-26] MEDS: THIAMINE HCL 100 MG TABLET PO SCH ×2 (09:28→16:24)
[2017-06-26] MEDS: NICOTINE 7 MG/24 HOUR PATCH TD SCH (09:29)
[2017-06-26] MEDS: DULoxetine HCL 20 MG CAPSULE PO SCH (09:59)
[2017-06-26] MEDS: HALOPERIDOL 5 MG TABLET PO PRN ×2 (09:59→14:20)
[2017-06-26 16:48] VITALS: BP 118/56
[2017-06-26] MEDS ORDERED: QUEtiapine FUMARATE 200 MG TABLET PO SCH (21:00)
[2017-06-27 00:06] VITALS: BP 126/63
[2017-06-27 08:11] VITALS: BP 127/65
[2017-06-27] MEDS: LISINOPRIL 10 MG TABLET PO SCH (08:50)
[2017-06-27] MEDS: NALTREXONE HCL 50 MG TABLET PO SCH (08:50)
[2017-06-27] MEDS: FOLIC ACID 1 MG TABLET PO SCH (08:50)
[2017-06-27] MEDS: DULoxetine HCL 20 MG CAPSULE PO SCH (08:50)
[2017-06-27] MEDS: MULTIVITAMINS WITH MINERALS, THERAPEUTIC TABLET PO SCH (08:50)
[2017-06-27] MEDS: OMEPRAZOLE 20 MG CAPSULE PO SCH (08:50)
[2017-06-27] MEDS: NICOTINE 7 MG/24 HOUR PATCH TD SCH (08:51)
[2017-06-27] MEDS: DOCUSATE SODIUM 100 MG CAPSULE PO SCH (08:51)
[2017-06-27] MEDS: THIAMINE HCL 100 MG TABLET PO SCH ×2 (08:51→16:45)
[2017-06-27] MEDS: CHOLECALCIFEROL (VIT D3) 1,000 UNITS TABLET PO SCH (08:53)
[2017-06-27 17:46] VITALS: BP 135/78
[2017-06-27] MEDS: QUEtiapine FUMARATE 300 MG TABLET PO SCH (20:45)
[2017-06-28 02:35] VITALS: BP 138/72
[2017-06-28] MEDS: IBUPROFEN 600 MG TABLET PO PRN ×2 (02:40→20:16)
[2017-06-28] MEDS: LORazepam 1 MG TABLET PO PRN (02:40)
[2017-06-28 08:28] VITALS: BP 128/68
[2017-06-28] MEDS: LISINOPRIL 10 MG TABLET PO SCH (08:48)
[2017-06-28] MEDS: DOCUSATE SODIUM 100 MG CAPSULE PO SCH (08:48)
[2017-06-28] MEDS: FOLIC ACID 1 MG TABLET PO SCH (08:48)
[2017-06-28] MEDS: THIAMINE HCL 100 MG TABLET PO SCH ×2 (08:48→16:27)
[2017-06-28] MEDS: MULTIVITAMINS WITH MINERALS, THERAPEUTIC TABLET PO SCH (08:49)
[2017-06-28] MEDS: NALTREXONE HCL 50 MG TABLET PO SCH (08:49)
[2017-06-28] MEDS: DULoxetine HCL 20 MG CAPSULE PO SCH (08:49)
[2017-06-28] MEDS: OMEPRAZOLE 20 MG CAPSULE PO SCH (08:49)
[2017-06-28] MEDS: NICOTINE 7 MG/24 HOUR PATCH TD SCH (08:49)
[2017-06-28] MEDS: CHOLECALCIFEROL (VIT D3) 1,000 UNITS TABLET PO SCH (08:49)
[2017-06-28 16:23] VITALS: BP 128/65
[2017-06-28] MEDS: QUEtiapine FUMARATE 300 MG TABLET PO SCH (20:15)
[2017-06-28 20:16] VITALS: BP 122/78
[2017-06-29 06:10] VITALS: BP 110/62
[2017-06-29] MEDS: IBUPROFEN 600 MG TABLET PO PRN (06:11)
[2017-06-29 08:55] VITALS: BP 128/58
[2017-06-29] MEDS: OMEPRAZOLE 20 MG CAPSULE PO SCH (09:48)
[2017-06-29] MEDS: THIAMINE HCL 100 MG TABLET PO SCH ×2 (09:49→16:36)
[2017-06-29] MEDS: FOLIC ACID 1 MG TABLET PO SCH (09:49)
[2017-06-29] MEDS: DOCUSATE SODIUM 100 MG CAPSULE PO SCH (09:49)
[2017-06-29] MEDS: CHOLECALCIFEROL (VIT D3) 1,000 UNITS TABLET PO SCH (09:49)
[2017-06-29] MEDS: MULTIVITAMINS WITH MINERALS, THERAPEUTIC TABLET PO SCH (09:49)
[2017-06-29] MEDS: LISINOPRIL 10 MG TABLET PO SCH (09:50)
[2017-06-29] MEDS: NICOTINE 7 MG/24 HOUR PATCH TD SCH ×2 (10:05→11:13)
[2017-06-29] MEDS: NALTREXONE HCL 50 MG TABLET PO SCH (10:06)
[2017-06-29] MEDS: DULoxetine HCL 20 MG CAPSULE PO SCH (11:05)
[2017-06-29 16:13] VITALS: BP 137/86
[2017-06-29] MEDS: QUEtiapine FUMARATE 300 MG TABLET PO SCH (20:18)
[2017-06-30 01:40] VITALS: BP 140/88
[2017-06-30] MEDS: LORazepam 1 MG TABLET PO PRN ×3 (01:51→20:13)
[2017-06-30] MEDS: IBUPROFEN 600 MG TABLET PO PRN (01:51)
[2017-06-30 08:53] VITALS: BP 128/84
[2017-06-30] MEDS: CHOLECALCIFEROL (VIT D3) 1,000 UNITS TABLET PO SCH (10:12)
[2017-06-30] MEDS: THIAMINE HCL 100 MG TABLET PO SCH ×2 (10:12→16:26)
[2017-06-30] MEDS: LISINOPRIL 10 MG TABLET PO SCH (10:12)
[2017-06-30] MEDS: NICOTINE 7 MG/24 HOUR PATCH TD SCH (10:12)
[2017-06-30] MEDS: MULTIVITAMINS WITH MINERALS, THERAPEUTIC TABLET PO SCH (10:12)
[2017-06-30] MEDS: DOCUSATE SODIUM 100 MG CAPSULE PO SCH (10:12)
[2017-06-30] MEDS: DULoxetine HCL 20 MG CAPSULE PO SCH (10:13)
[2017-06-30] MEDS: NALTREXONE HCL 50 MG TABLET PO SCH (10:13)
[2017-06-30] MEDS: FOLIC ACID 1 MG TABLET PO SCH (10:13)
[2017-06-30] MEDS: OMEPRAZOLE 20 MG CAPSULE PO SCH (10:14)
[2017-06-30 16:15] VITALS: BP 120/70
[2017-06-30] MEDS: QUEtiapine FUMARATE 300 MG TABLET PO SCH (20:13)
[2017-07-01 05:48] VITALS: BP 130/75
[2017-07-01 08:15] VITALS: BP 102/60
[2017-07-01] MEDS: NALTREXONE HCL 50 MG TABLET PO SCH (08:48)
[2017-07-01] MEDS: FOLIC ACID 1 MG TABLET PO SCH (08:48)
[2017-07-01] MEDS: DULoxetine HCL 20 MG CAPSULE PO SCH (08:48)
[2017-07-01] MEDS: DOCUSATE SODIUM 100 MG CAPSULE PO SCH (08:48)
[2017-07-01] MEDS: NICOTINE 7 MG/24 HOUR PATCH TD SCH (08:48)
[2017-07-01] MEDS: MULTIVITAMINS WITH MINERALS, THERAPEUTIC TABLET PO SCH (08:48)
[2017-07-01] MEDS: THIAMINE HCL 100 MG TABLET PO SCH ×2 (08:49→16:11)
[2017-07-01] MEDS: LISINOPRIL 10 MG TABLET PO SCH (08:49)
[2017-07-01] MEDS: CHOLECALCIFEROL (VIT D3) 1,000 UNITS TABLET PO SCH (08:49)
[2017-07-01] MEDS: OMEPRAZOLE 20 MG CAPSULE PO SCH (08:49)
[2017-07-01] MEDS: LORazepam 1 MG TABLET PO PRN (16:11)
[2017-07-01 16:34] VITALS: BP 124/77
[2017-07-01] MEDS: QUEtiapine FUMARATE 200 MG TABLET PO SCH (20:09)
[2017-07-02 06:32] VITALS: BP 110/65
[2017-07-02 08:30] VITALS: BP 115/65
[2017-07-02] MEDS: OMEPRAZOLE 20 MG CAPSULE PO SCH (08:58)
[2017-07-02] MEDS: NICOTINE 7 MG/24 HOUR PATCH TD SCH (08:59)
[2017-07-02] MEDS: FOLIC ACID 1 MG TABLET PO SCH (08:59)
[2017-07-02] MEDS: NALTREXONE HCL 50 MG TABLET PO SCH (08:59)
[2017-07-02] MEDS: DOCUSATE SODIUM 100 MG CAPSULE PO SCH (08:59)
[2017-07-02] MEDS: MULTIVITAMINS WITH MINERALS, THERAPEUTIC TABLET PO SCH (08:59)
[2017-07-02] MEDS: THIAMINE HCL 100 MG TABLET PO SCH ×2 (09:00→16:30)
[2017-07-02] MEDS: CHOLECALCIFEROL (VIT D3) 1,000 UNITS TABLET PO SCH (09:00)
[2017-07-02] MEDS: LISINOPRIL 10 MG TABLET PO SCH (09:00)
[2017-07-02] MEDS: DULoxetine HCL 20 MG CAPSULE PO SCH (09:00)
[2017-07-02 16:17] VITALS: BP 101/65
[2017-07-02] MEDS: QUEtiapine FUMARATE 200 MG TABLET PO SCH (20:11)
[2017-07-02] MEDS: LORazepam 1 MG TABLET PO PRN (20:12)
[2017-07-03 06:20] VITALS: BP 115/59
[2017-07-03] MEDS: LISINOPRIL 10 MG TABLET PO SCH (09:18)
[2017-07-03] MEDS: OMEPRAZOLE 20 MG CAPSULE PO SCH (09:18)
[2017-07-03] MEDS: DOCUSATE SODIUM 100 MG CAPSULE PO SCH (09:19)
[2017-07-03] MEDS: FOLIC ACID 1 MG TABLET PO SCH (09:19)
[2017-07-03] MEDS: NALTREXONE HCL 50 MG TABLET PO SCH (09:19)
[2017-07-03] MEDS: CHOLECALCIFEROL (VIT D3) 1,000 UNITS TABLET PO SCH (09:19)
[2017-07-03] MEDS: THIAMINE HCL 100 MG TABLET PO SCH ×2 (09:19→16:37)
[2017-07-03] MEDS: MULTIVITAMINS WITH MINERALS, THERAPEUTIC TABLET PO SCH (09:19)
[2017-07-03] MEDS: DULoxetine HCL 60 MG CAPSULE PO SCH (09:20)
[2017-07-03 09:34] VITALS: BP 110/60
[2017-07-03] MEDS: NICOTINE 7 MG/24 HOUR PATCH TD SCH (10:37)
[2017-07-03 17:30] VITALS: BP 90/60
[2017-07-03] MEDS: QUEtiapine FUMARATE 200 MG TABLET PO SCH (20:51)
[2017-07-04 03:21] VITALS: BP 110/75
[2017-07-04 08:23] VITALS: BP 118/67
[2017-07-04] MEDS: LISINOPRIL 10 MG TABLET PO SCH (08:53)
[2017-07-04] MEDS: OMEPRAZOLE 20 MG CAPSULE PO SCH (08:53)
[2017-07-04] MEDS: MULTIVITAMINS WITH MINERALS, THERAPEUTIC TABLET PO SCH (08:54)
[2017-07-04] MEDS: THIAMINE HCL 100 MG TABLET PO SCH (08:54)
[2017-07-04] MEDS: DULoxetine HCL 60 MG CAPSULE PO SCH (08:54)
[2017-07-04] MEDS: NALTREXONE HCL 50 MG TABLET PO SCH (08:54)
[2017-07-04] MEDS: DOCUSATE SODIUM 100 MG CAPSULE PO SCH (08:54)
[2017-07-04] MEDS: FOLIC ACID 1 MG TABLET PO SCH (08:54)
[2017-07-04] MEDS: CHOLECALCIFEROL (VIT D3) 1,000 UNITS TABLET PO SCH (08:54)
[2017-07-04] MEDS: NICOTINE 7 MG/24 HOUR PATCH TD SCH (08:54)
[2017-07-04] MEDS ORDERED: DOCU100C33 PO (10:09)
[2017-07-04] MEDS ORDERED: NALT50TA6 PO (10:09)
[2017-07-04] MEDS ORDERED: DULO60CA44 PO ×2 (10:09→10:58)
[2017-07-04] MEDS ORDERED: OMEP10SU2 PO (10:09)
[2017-07-04] MEDS ORDERED: QUET200T PO (10:09)
[2017-07-04] MEDS ORDERED: NALT50TA PO (10:58)
[2017-07-04] MEDS ORDERED: QUET200T29 PO (10:58)
[2017-09-01] MEDS ORDERED: QUET100T PO (07:19)
[2017-09-09] MEDS ORDERED: OMEP20 PO (13:44)
[2017-09-10] MEDS ORDERED: DULO20CA30 PO ×2 (10:51→16:12)
[2017-09-10] MEDS ORDERED: NALT50TA PO (10:51)
[2017-09-10] MEDS ORDERED: PROP20 PO ×2 (10:51→16:12)
[2017-09-10] MEDS ORDERED: OLAN10TA20 PO (10:51)
[2017-09-10] MEDS ORDERED: NALT50TA6 PO (16:12)
[2017-09-10] MEDS ORDERED: LISI-662 PO (16:12)
[2017-09-10] MEDS ORDERED: OLAN10TA3 PO (16:12)
[2017-09-10] MEDS ORDERED: VITAD1000 PO (16:12)
== END 2017-07-04 15:38 | disposition home or self-care (01) | DRG 750 ==
LOC: B2S 02:17 → EDSTATUS 02:20
PROVIDERS: ADMIT Psychiatry & Neurology Psychiatry; ATTEND Psychiatry & Neurology Psychiatry
DX: F25.1 Schizoaffective disorder, depressive type (principal); Z68.42 Body mass index [BMI] 45.0-49.9, adult; E66.01 Morbid (severe) obesity due to excess calories; F12.90 Cannabis use, unspecified, uncomplicated; F15.10 Other stimulant abuse, uncomplicated; G47.00 Insomnia, unspecified; J44.9 Chronic obstructive pulmonary disease, unspecified; R26.9 Unspecified abnormalities of gait and mobility; K21.9 Gastro-esophageal reflux disease without esophagitis; D64.9 Anemia, unspecified; E83.51 Hypocalcemia; Z72.0 Tobacco use; Z71.6 Tobacco abuse counseling; Z91.19 Patient's noncompliance with other medical treatment and regimen; Z71.51 Drug abuse counseling and surveillance of drug abuser
CPT/HCPCS: 83036; 84436; 84439; 84443; 99285

== ENCOUNTER 2017-07-21 20:53 | Inpatient (IN) | payer MEDICAID ==
[~2017-07-21] VITALS: Ht 160 cm; Wt 123.0 kg
[~2017-07-21 20:53] MED LIST changes: -CITA20TA9 PO; +DOCU100C33 PO; +NALT50TA PO; +OMEP10SU2 PO; +QUET200T29 PO; -RISP3 PO; -TRAZ-144 PO; -TRIH5TAB2 PO
[2017-07-21] MEDS ORDERED: ZOLPIDEM TARTRATE 5 MG TABLET PO PRN (21:30)
[2017-07-21] MEDS ORDERED: OLANZapine 10 MG RAPDIS TABLET PO PRN (21:30)
[2017-07-21] MEDS ORDERED: LORazepam 1 MG TABLET PO PRN (21:30)
[2017-07-21 21:58] VITALS: BP 139/75
[2017-07-21 22:08] VITALS: BP 112/73
[2017-07-21] MEDS: QUEtiapine FUMARATE 300 MG TABLET PO SCH (22:20)
[2017-07-21] MEDS ORDERED: -PHARMACY VACCINE NOTE- MISC ONE ×2 (22:30)
[2017-07-21] MEDS ORDERED: INFLUENZA VIRUS VACCINE QVS 2017-18 (3YR+)/PF 60 MCG/0.5 ML SYRINGE IM ONE (22:30)
[2017-07-21] MEDS ORDERED: ACETAMINOPHEN 325 MG TABLET PO PRN (23:15)
[2017-07-22 06:03] VITALS: BP 116/75
[2017-07-22 08:35] VITALS: BP 107/61
[2017-07-22] MEDS: DULoxetine HCL 30 MG CAPSULE PO SCH (08:48)
[2017-07-22] MEDS: OMEPRAZOLE 20 MG CAPSULE PO SCH (08:48)
[2017-07-22] MEDS: DOCUSATE SODIUM 100 MG CAPSULE PO SCH (08:49)
[2017-07-22] MEDS: LISINOPRIL 5 MG TABLET PO SCH (08:49)
[2017-07-22] MEDS: NICOTINE 21 MG/24 HOUR PATCH TD SCH (08:50)
[2017-07-22] MEDS: NALTREXONE HCL 50 MG TABLET PO SCH (08:50)
[2017-07-22] MEDS ORDERED: MAG HYDROX/AL HYDROX/SIMETH ES 30 ML SUSPENSION UDCUP PO PRN (09:15)
[2017-07-22] MEDS ORDERED: ONDANSETRON HCL 4 MG TABLET PO PRN (09:15)
[2017-07-22] MEDS ORDERED: BACITRACIN 28.4 GM OINTMENT TP PRN (09:15)
[2017-07-22] MEDS ORDERED: CloNIDine HCL 0.1 MG TABLET PO PRN (09:15)
[2017-07-22] MEDS ORDERED: MAGNESIUM HYDROXIDE SUSPENSION 30 ML UDCUP PO PRN (09:15)
[2017-07-22] MEDS ORDERED: ALBUTEROL SULFATE HFA 90 MCG/PUFF 8 GM INHALER IH PRN (09:15)
[2017-07-22] MEDS ORDERED: BENZOCAINE/MENTHOL LOZENGE MM PRN (09:15)
[2017-07-22] MEDS ORDERED: LOPERAMIDE HCL 2 MG CAPSULE PO PRN (09:15)
[2017-07-22] MEDS ORDERED: PETROLATUM,WHITE 71 GM JELLY TP PRN (09:15)
[2017-07-22] MEDS: TRIHEXYPHENIDYL HCL 2 MG TABLET PO SCH (16:19)
[2017-07-22 16:31] VITALS: BP 129/84
[2017-07-22] MEDS: QUEtiapine FUMARATE 300 MG TABLET PO SCH (20:39)
[2017-07-23 06:54] VITALS: BP 138/78
[2017-07-23 08:14] VITALS: BP 141/63
[2017-07-23] MEDS: TRIHEXYPHENIDYL HCL 2 MG TABLET PO SCH (08:35)
[2017-07-23] MEDS: DOCUSATE SODIUM 100 MG CAPSULE PO SCH (08:35)
[2017-07-23] MEDS: OMEPRAZOLE 20 MG CAPSULE PO SCH (08:35)
[2017-07-23] MEDS: NALTREXONE HCL 50 MG TABLET PO SCH (08:35)
[2017-07-23] MEDS: LISINOPRIL 5 MG TABLET PO SCH (08:35)
[2017-07-23] MEDS: NICOTINE 21 MG/24 HOUR PATCH TD SCH (08:35)
[2017-07-23] MEDS: DULoxetine HCL 30 MG CAPSULE PO SCH (08:35)
[2017-07-23] MEDS: CHOLECALCIFEROL (VIT D3) 1,000 UNITS TABLET PO SCH (08:35)
[2017-07-23] MEDS ORDERED: QUEtiapine FUMARATE 100 MG TABLET PO PRN (15:30)
[2017-07-23] MEDS: TRIHEXYPHENIDYL HCL 5 MG TABLET PO SCH (16:34)
[2017-07-23] MEDS: PROPRANOLOL HCL 10 MG TABLET PO SCH ×2 (16:34→20:36)
[2017-07-23] MEDS: QUEtiapine FUMARATE 100 MG TABLET PO SCH (16:34)
[2017-07-23 17:26] VITALS: BP 121/70
[2017-07-23] MEDS: QUEtiapine FUMARATE 300 MG TABLET PO SCH (20:35)
[2017-07-24 06:03] VITALS: BP 139/87
[2017-07-24] MEDS: PROPRANOLOL HCL 10 MG TABLET PO SCH ×3 (09:33→16:19)
[2017-07-24] MEDS: LISINOPRIL 5 MG TABLET PO SCH (09:34)
[2017-07-24] MEDS: DOCUSATE SODIUM 100 MG CAPSULE PO SCH (09:34)
[2017-07-24] MEDS: DULoxetine HCL 20 MG CAPSULE PO SCH (09:34)
[2017-07-24] MEDS: TRIHEXYPHENIDYL HCL 5 MG TABLET PO SCH ×3 (09:34→16:19)
[2017-07-24] MEDS: CHOLECALCIFEROL (VIT D3) 1,000 UNITS TABLET PO SCH (09:34)
[2017-07-24] MEDS: OMEPRAZOLE 20 MG CAPSULE PO SCH (09:34)
[2017-07-24] MEDS: QUEtiapine FUMARATE 100 MG TABLET PO SCH ×3 (09:34→16:19)
[2017-07-24] MEDS: NALTREXONE HCL 50 MG TABLET PO SCH (09:34)
[2017-07-24] MEDS: NICOTINE 21 MG/24 HOUR PATCH TD SCH (09:35)
[2017-07-24 09:38] VITALS: BP 132/93
[2017-07-24 10:33] VITALS: BP 130/82
[2017-07-24] MEDS: IBUPROFEN 600 MG TABLET PO PRN ×2 (10:33→20:29)
[2017-07-24] MEDS ORDERED: PROPRANOLOL HCL 20 MG TABLET PO SCH (17:00)
[2017-07-24] MEDS: QUEtiapine FUMARATE 200 MG TABLET PO SCH (20:24)
[2017-07-25 01:05] VITALS: BP 122/72
[2017-07-25] MEDS: PROPRANOLOL HCL 20 MG TABLET PO SCH ×4 (08:34→20:35)
[2017-07-25] MEDS: DULoxetine HCL 20 MG CAPSULE PO SCH (08:34)
[2017-07-25] MEDS: TRIHEXYPHENIDYL HCL 5 MG TABLET PO SCH ×3 (08:34→16:20)
[2017-07-25] MEDS: NICOTINE 21 MG/24 HOUR PATCH TD SCH (08:34)
[2017-07-25] MEDS: NALTREXONE HCL 50 MG TABLET PO SCH (08:34)
[2017-07-25] MEDS: QUEtiapine FUMARATE 100 MG TABLET PO SCH ×3 (08:35→16:21)
[2017-07-25] MEDS: CHOLECALCIFEROL (VIT D3) 1,000 UNITS TABLET PO SCH (08:35)
[2017-07-25] MEDS: LISINOPRIL 5 MG TABLET PO SCH (08:35)
[2017-07-25] MEDS: DOCUSATE SODIUM 100 MG CAPSULE PO SCH (08:35)
[2017-07-25] MEDS: OMEPRAZOLE 20 MG CAPSULE PO SCH (08:35)
[2017-07-25 08:58] VITALS: BP 139/64
[2017-07-25 16:02] VITALS: BP 107/60
[2017-07-25] MEDS: QUEtiapine FUMARATE 200 MG TABLET PO SCH (20:35)
[2017-07-26 08:54] VITALS: BP 126/78
[2017-07-26] MEDS: LISINOPRIL 5 MG TABLET PO SCH (09:24)
[2017-07-26] MEDS: NALTREXONE HCL 50 MG TABLET PO SCH (09:24)
[2017-07-26] MEDS: NICOTINE 21 MG/24 HOUR PATCH TD SCH (09:25)
[2017-07-26] MEDS: CHOLECALCIFEROL (VIT D3) 1,000 UNITS TABLET PO SCH (09:25)
[2017-07-26] MEDS: TRIHEXYPHENIDYL HCL 5 MG TABLET PO SCH ×3 (09:25→16:53)
[2017-07-26] MEDS: DULoxetine HCL 30 MG CAPSULE PO SCH (09:25)
[2017-07-26] MEDS: OMEPRAZOLE 20 MG CAPSULE PO SCH (09:25)
[2017-07-26] MEDS: PROPRANOLOL HCL 20 MG TABLET PO SCH ×4 (09:25→20:38)
[2017-07-26] MEDS: QUEtiapine FUMARATE 100 MG TABLET PO SCH ×3 (09:25→16:54)
[2017-07-26] MEDS: DOCUSATE SODIUM 100 MG CAPSULE PO SCH (09:25)
[2017-07-26 12:57] VITALS: BP 113/61
[2017-07-26 16:04] VITALS: BP 112/65
[2017-07-26 20:35] VITALS: BP 124/70
[2017-07-26] MEDS: QUEtiapine FUMARATE 200 MG TABLET PO SCH (20:38)
[2017-07-27 03:20] VITALS: BP 111/66
[2017-07-27 09:00] VITALS: BP 143/85
[2017-07-27] MEDS: PROPRANOLOL HCL 20 MG TABLET PO SCH ×4 (09:35→20:13)
[2017-07-27] MEDS: DOCUSATE SODIUM 100 MG CAPSULE PO SCH (09:35)
[2017-07-27] MEDS: TRIHEXYPHENIDYL HCL 5 MG TABLET PO SCH ×3 (09:35→16:17)
[2017-07-27] MEDS: CHOLECALCIFEROL (VIT D3) 1,000 UNITS TABLET PO SCH (09:36)
[2017-07-27] MEDS: NALTREXONE HCL 50 MG TABLET PO SCH (09:36)
[2017-07-27] MEDS: DULoxetine HCL 30 MG CAPSULE PO SCH (09:36)
[2017-07-27] MEDS: OMEPRAZOLE 20 MG CAPSULE PO SCH (09:36)
[2017-07-27] MEDS: QUEtiapine FUMARATE 100 MG TABLET PO SCH ×3 (09:36→16:17)
[2017-07-27] MEDS: LISINOPRIL 5 MG TABLET PO SCH (09:36)
[2017-07-27] MEDS: NICOTINE 21 MG/24 HOUR PATCH TD SCH (09:37)
[2017-07-27 16:17] VITALS: BP 113/79
[2017-07-27 16:40] VITALS: BP 90/63
[2017-07-27] MEDS: QUEtiapine FUMARATE 200 MG TABLET PO SCH (20:13)
[2017-07-28 06:15] VITALS: BP 104/63
[2017-07-28 08:46] VITALS: BP 121/64
[2017-07-28] MEDS: CHOLECALCIFEROL (VIT D3) 1,000 UNITS TABLET PO SCH (09:26)
[2017-07-28] MEDS: DULoxetine HCL 30 MG CAPSULE PO SCH (09:26)
[2017-07-28] MEDS: DOCUSATE SODIUM 100 MG CAPSULE PO SCH (09:26)
[2017-07-28] MEDS: OMEPRAZOLE 20 MG CAPSULE PO SCH (09:26)
[2017-07-28] MEDS: TRIHEXYPHENIDYL HCL 5 MG TABLET PO SCH ×3 (09:26→16:44)
[2017-07-28] MEDS: LISINOPRIL 5 MG TABLET PO SCH (09:26)
[2017-07-28] MEDS: PROPRANOLOL HCL 20 MG TABLET PO SCH ×4 (09:27→21:10)
[2017-07-28] MEDS: QUEtiapine FUMARATE 100 MG TABLET PO SCH ×3 (09:27→16:44)
[2017-07-28] MEDS: NICOTINE 21 MG/24 HOUR PATCH TD SCH (09:27)
[2017-07-28] MEDS: NALTREXONE HCL 50 MG TABLET PO SCH (09:27)
[2017-07-28 16:19] VITALS: BP 96/64
[2017-07-28 17:38] VITALS: BP 110/80
[2017-07-28] MEDS: QUEtiapine FUMARATE 200 MG TABLET PO SCH (20:15)
[2017-07-29 04:59] VITALS: BP 110/88
[2017-07-29] MEDS: LORazepam 2 MG TABLET PO PRN (05:09)
[2017-07-29 08:27] LABS: BASOPHILS # (AUTO) 0.02 K/uL (0.00-0.20); BASOPHILS % (AUTO) 0.4 % (0.0-2.0); EOSINOPHILS # (AUTO) 0.39 K/uL (0.00-0.70); EOSINOPHILS % (AUTO) 7.54 % (1.0-6.0); HEMATOCRIT 38.7 % (36-46); HEMOGLOBIN 12.3 g/dL (12.0-16.0); LYMPHOCYTES # (AUTO) 2.1 K/uL (1.0-4.8); LYMPHOCYTES % (AUTO) 40.1 % (22.0-44.0); MEAN CORPUSCULAR HEMOGLOBIN 27.7 pg (26.0-34.0); MEAN CORPUSCULAR HGB CONC 31.8 G/dL (31.0-37.0); MEAN CORPUSCULAR VOLUME 87 fL (80-100); MONOCYTES # (AUTO) 0.5 K/uL (0.1-1.0); MONOCYTES % (AUTO) 9.4 % (2.0-9.0); NEUTROPHILS # (AUTO) 2.2 K/uL (1.8-7.7); NEUTROPHILS % (AUTO) 42.5 % (40.0-70.0); PLATELET COUNT (AUTO) 231 K/uL (150-450); RED BLOOD CELL COUNT(AUTO) 4.45 MIL/uL (4.00-5.20); RED CELL DISTRIBUTION WIDTH 15.6 % (11.5-14.5); WHITE BLOOD COUNT (AUTO) 5.2 K/uL (4.5-11.0)
[2017-07-29 08:28] VITALS: BP 128/75
[2017-07-29 08:31] LABS: HEMOGLOBIN A1C 5.6 % (4.5-6.2)
[2017-07-29 08:56] LABS: ALANINE AMINOTRANSFERASE 17 U/L (12-78); ALBUMIN 3.2 g/dL (3.4-5.0); ANION GAP 6 mmol/L (8-16); ASPARTATE AMINOTRANSFERASE 12 U/L (15-37); BILIRUBIN,TOTAL 0.3 mg/dL (0.1-1.0); CALCIUM, TOTAL 8.9 mg/dL (8.8-10.5); CARBON DIOXIDE 32 mmol/L (22-29); CHLORIDE 104 mmol/L (98-107); CHOL/HDL RATIO 3.4 (3.9-5.7); CREATININE 0.67 mg/dL (0.60-1.30); GLOMERULAR FILTR. RATE CALC > 60 mL/min (>60); POTASSIUM 4.7 mmol/L (3.5-5.1); SODIUM SERUM 142 mmol/L (136-145); THYROID STIMULATING HORMONE 1.13 uIU/mL (0.36-3.74); TOTAL PROTEIN, SERUM 7.3 g/dL (6.4-8.2); UREA NITROGEN, BLOOD 15 mg/dL (7-18)
[2017-07-29] MEDS: QUEtiapine FUMARATE 100 MG TABLET PO SCH ×2 (08:56→13:06)
[2017-07-29] MEDS: CHOLECALCIFEROL (VIT D3) 1,000 UNITS TABLET PO SCH (08:56)
[2017-07-29] MEDS: OMEPRAZOLE 20 MG CAPSULE PO SCH (08:56)
[2017-07-29] MEDS: NICOTINE 21 MG/24 HOUR PATCH TD SCH (08:56)
[2017-07-29] MEDS: PROPRANOLOL HCL 20 MG TABLET PO SCH ×4 (08:56→21:37)
[2017-07-29] MEDS: DOCUSATE SODIUM 100 MG CAPSULE PO SCH (08:56)
[2017-07-29] MEDS: DULoxetine HCL 30 MG CAPSULE PO SCH (08:57)
[2017-07-29] MEDS: NALTREXONE HCL 50 MG TABLET PO SCH (08:57)
[2017-07-29] MEDS: TRIHEXYPHENIDYL HCL 5 MG TABLET PO SCH ×2 (08:57→13:06)
[2017-07-29] MEDS: LISINOPRIL 5 MG TABLET PO SCH (08:57)
[2017-07-29] MEDS ORDERED: OLANZapine 5 MG RAPDIS TABLET PO PRN (15:00)
[2017-07-29 16:40] VITALS: BP 129/86
[2017-07-29] MEDS ORDERED: OLANZapine 5 MG RAPDIS TABLET PO SCH (21:00)
[2017-07-30 00:49] VITALS: BP 101/62
[2017-07-30 08:13] VITALS: BP 127/62
[2017-07-30] MEDS: PROPRANOLOL HCL 20 MG TABLET PO SCH ×4 (08:28→21:22)
[2017-07-30] MEDS: CHOLECALCIFEROL (VIT D3) 1,000 UNITS TABLET PO SCH (08:28)
[2017-07-30] MEDS: NALTREXONE HCL 50 MG TABLET PO SCH (08:28)
[2017-07-30] MEDS: OMEPRAZOLE 20 MG CAPSULE PO SCH (08:29)
[2017-07-30] MEDS: LISINOPRIL 5 MG TABLET PO SCH (08:29)
[2017-07-30] MEDS: DOCUSATE SODIUM 100 MG CAPSULE PO SCH (08:29)
[2017-07-30] MEDS: NICOTINE 21 MG/24 HOUR PATCH TD SCH (08:30)
[2017-07-30] MEDS ORDERED: DULoxetine HCL 20 MG CAPSULE PO SCH (09:00)
[2017-07-30 13:42] VITALS: BP 130/72
[2017-07-30] MEDS: IBUPROFEN 600 MG TABLET PO PRN (13:42)
[2017-07-30 16:00] VITALS: BP 113/69
[2017-07-30] MEDS: LORazepam 2 MG TABLET PO PRN (16:44)
[2017-07-30] MEDS ORDERED: PROP20 PO (17:02)
[2017-07-30] MEDS ORDERED: DULO60CA44 PO (17:02)
[2017-07-30] MEDS ORDERED: NALT50TA PO (17:02)
[2017-07-30] MEDS ORDERED: OLAN10TA22 PO (17:02)
[2017-07-30] MEDS ORDERED: OLANZapine 10 MG RAPDIS TABLET PO SCH (21:00)
[2017-07-31 05:38] VITALS: BP 106/58
[2017-07-31] MEDS: NALTREXONE HCL 50 MG TABLET PO SCH (08:36)
[2017-07-31] MEDS: NICOTINE 21 MG/24 HOUR PATCH TD SCH (08:36)
[2017-07-31] MEDS: OMEPRAZOLE 20 MG CAPSULE PO SCH (08:36)
[2017-07-31] MEDS: LISINOPRIL 5 MG TABLET PO SCH (08:36)
[2017-07-31] MEDS: DOCUSATE SODIUM 100 MG CAPSULE PO SCH (08:36)
[2017-07-31] MEDS: PROPRANOLOL HCL 20 MG TABLET PO SCH (08:36)
[2017-07-31] MEDS: CHOLECALCIFEROL (VIT D3) 1,000 UNITS TABLET PO SCH (08:36)
[2017-07-31 08:38] VITALS: BP 123/66
[2017-07-31] MEDS ORDERED: DULoxetine HCL 60 MG CAPSULE PO SCH (09:00)
[2017-07-31] MEDS ORDERED: DULO60CA44 PO (10:22)
[2017-07-31] MEDS ORDERED: OLAN10TA3 PO (10:22)
[2017-07-31] MEDS ORDERED: PROP20 PO (10:22)
[2017-07-31] MEDS ORDERED: DSS100 PO (10:22)
[2017-07-31] MEDS ORDERED: OLAN10TA6 PO (10:24)
[2017-09-01] MEDS ORDERED: QUET100T PO (07:19)
[2017-09-09] MEDS ORDERED: OMEP20 PO (13:44)
[2017-09-10] MEDS ORDERED: DULO20CA30 PO ×2 (10:51→16:12)
[2017-09-10] MEDS ORDERED: OLAN10TA20 PO (10:51)
[2017-09-10] MEDS ORDERED: NALT50TA PO (10:51)
[2017-09-10] MEDS ORDERED: PROP20 PO ×2 (10:51→16:12)
[2017-09-10] MEDS ORDERED: OLAN10TA3 PO (16:12)
[2017-09-10] MEDS ORDERED: VITAD1000 PO (16:12)
[2017-09-10] MEDS ORDERED: NALT50TA6 PO (16:12)
[2017-09-10] MEDS ORDERED: LISI-662 PO (16:12)
== END 2017-07-31 11:05 | disposition home or self-care (01) | DRG 750 ==
LOC: B2S 21:15 → EDSTATUS 21:56 → B2S 07-24 14:29
PROVIDERS: ADMIT Psychiatry & Neurology Psychiatry; ATTEND Psychiatry & Neurology Psychiatry
DX: F25.0 Schizoaffective disorder, bipolar type (principal); R45.851 Suicidal ideations; Z68.42 Body mass index [BMI] 45.0-49.9, adult; E66.01 Morbid (severe) obesity due to excess calories; I10 Essential (primary) hypertension; E55.9 Vitamin D deficiency, unspecified; E78.5 Hyperlipidemia, unspecified; F15.10 Other stimulant abuse, uncomplicated; J44.9 Chronic obstructive pulmonary disease, unspecified; K21.9 Gastro-esophageal reflux disease without esophagitis; M54.5 Low back pain; K59.00 Constipation, unspecified; F17.200 Nicotine dependence, unspecified, uncomplicated; Z91.19 Patient's noncompliance with other medical treatment and regimen; Z79.899 Other long term (current) drug therapy
CPT/HCPCS: 83036; 84439; 84443; 87081

== ENCOUNTER 2017-09-13 21:49 | Inpatient (IN) | payer MEDICAID ==
[~2017-09-13] VITALS: Ht 157.5 cm; Wt 122.7 kg
[~2017-09-13 21:49] MED LIST changes: -DOCU100C33 PO; +DSS100 PO; +DULO20CA30 PO; -LISI-661 PO; +LISI-662 PO; +OLAN10TA20 PO; +OLAN10TA3 PO; -OMEP10SU2 PO; +OMEP20 PO; +PROP20 PO; -QUET200T29 PO
[2017-09-13] MEDS ORDERED: OLANZapine 5 MG RAPDIS TABLET PO PRN (22:30)
[2017-09-13 22:42] VITALS: BP 115/71
[2017-09-13] MEDS ORDERED: INFLUENZA VIRUS VACCINE QVS 2017-18 (3YR+)/PF 60 MCG/0.5 ML SYRINGE IM ONE (23:45)
[2017-09-13] MEDS ORDERED: -PHARMACY VACCINE NOTE- MISC ONE (23:45)
[2017-09-14 00:16] VITALS: BP_SYST 127; BP_SYST 130; BP_DIAS 81; BP_DIAS 87
[2017-09-14 09:00] VITALS: BP 136/80
[2017-09-14 18:11] VITALS: BP 113/78
[2017-09-14] MEDS ORDERED: ACETAMINOPHEN 325 MG TABLET PO PRN (18:45)
[2017-09-14 20:16] VITALS: BP 108/82
[2017-09-14] MEDS: LORazepam 2 MG TABLET PO PRN (20:16)
[2017-09-14] MEDS: OLANZapine 10 MG TABLET PO SCH (20:16)
[2017-09-14] MEDS: ZOLPIDEM TARTRATE 10 MG TABLET PO PRN (20:16)
[2017-09-15] MEDS: DULoxetine HCL 20 MG CAPSULE PO SCH (09:09)
[2017-09-15] MEDS: LORazepam 2 MG TABLET PO PRN (16:20)
[2017-09-15] MEDS: OLANZapine 10 MG TABLET PO SCH (20:17)
[2017-09-15] MEDS: ZOLPIDEM TARTRATE 10 MG TABLET PO PRN (20:17)
[2017-09-15 21:09] VITALS: BP 135/86
[2017-09-16 05:37] VITALS: BP 127/85
[2017-09-16] MEDS: DULoxetine HCL 20 MG CAPSULE PO SCH (09:22)
[2017-09-16] MEDS ORDERED: HydrOXYzine PAMOATE 50 MG CAPSULE PO PRN (12:15)
[2017-09-16] MEDS ORDERED: GuaiFENesin/D-METHORPHAN [SUGAR-FREE] 200-20MG/10 ML SYRUP UDCUP PO PRN (12:15)
[2017-09-16] MEDS: PROPRANOLOL HCL 20 MG TABLET PO SCH ×3 (13:00→20:43)
[2017-09-16] MEDS ORDERED: PROMETHAZINE HCL 25 MG TABLET PO PRN (14:15)
[2017-09-16] MEDS ORDERED: LOPERAMIDE HCL 2 MG CAPSULE PO PRN (14:15)
[2017-09-16] MEDS ORDERED: MAG HYDROX/AL HYDROX/SIMETH ES 30 ML SUSPENSION UDCUP PO PRN (14:15)
[2017-09-16] MEDS ORDERED: MAGNESIUM HYDROXIDE SUSPENSION 30 ML UDCUP PO PRN (14:15)
[2017-09-16 17:15] VITALS: BP 158/96
[2017-09-16] MEDS: LORazepam 2 MG TABLET PO PRN (17:19)
[2017-09-16] MEDS: THIAMINE HCL 100 MG TABLET PO SCH (17:19)
[2017-09-16] MEDS: OLANZapine 10 MG TABLET PO SCH (20:43)
[2017-09-16] MEDS: ZOLPIDEM TARTRATE 10 MG TABLET PO PRN (20:44)
[2017-09-16] MEDS: ACETAMINOPHEN 325 MG TABLET PO PRN (20:54)
[2017-09-17 07:47] LABS: BASOPHILS % (AUTO) 0.5 % (0.0-2.0); EOSINOPHILS % (AUTO) 10.7 % (1.0-6.0); HEMATOCRIT 39.8 % (36-46); HEMOGLOBIN 12.8 g/dL (12.0-16.0); LYMPHOCYTES # (AUTO) 2.3 K/uL (1.0-4.8); LYMPHOCYTES % (AUTO) 42.5 % (22.0-44.0); MEAN CORPUSCULAR HEMOGLOBIN 27.6 pg (26.0-34.0); MEAN CORPUSCULAR HGB CONC 32.3 G/dL (31.0-37.0); MEAN CORPUSCULAR VOLUME 85 fL (80-100); MONOCYTES # (AUTO) 0.4 K/uL (0.1-1.0); MONOCYTES % (AUTO) 7.8 % (2.0-9.0); NEUTROPHILS # (AUTO) 2.1 K/uL (1.8-7.7); NEUTROPHILS % (AUTO) 38.5 % (40.0-70.0); PLATELET COUNT (AUTO) 283 K/uL (150-450); RED BLOOD CELL COUNT(AUTO) 4.66 MIL/uL (4.00-5.20); RED CELL DISTRIBUTION WIDTH 14.7 % (11.5-14.5)
[2017-09-17 08:21] LABS: ALANINE AMINOTRANSFERASE 28 U/L (12-78); ALKALINE PHOSPHATASE 63 U/L (46-116); ANION GAP -1 mmol/L (8-16); ASPARTATE AMINOTRANSFERASE 16 U/L (15-37); BILIRUBIN,TOTAL 0.2 mg/dL (0.1-1.0); CALCIUM, TOTAL 8.8 mg/dL (8.8-10.5); CARBON DIOXIDE 37 mmol/L (22-29); CHLORIDE 102 mmol/L (98-107); CREATININE 0.67 mg/dL (0.60-1.30); GLOMERULAR FILTR. RATE CALC > 60 mL/min (>60); GLUCOSE,RANDOM 92 mg/dL (70-110); HCG,QUANTITATIVE 1 mIU/mL (0-6); POTASSIUM 4.7 mmol/L (3.5-5.1); SODIUM SERUM 138 mmol/L (136-145); TOTAL PROTEIN, SERUM 7.2 g/dL (6.4-8.2); UREA NITROGEN, BLOOD 11 mg/dL (7-18)
[2017-09-17 08:45] VITALS: BP 136/86
[2017-09-17] MEDS ORDERED: DULoxetine HCL 20 MG CAPSULE PO SCH (09:00)
[2017-09-17] MEDS: PROPRANOLOL HCL 20 MG TABLET PO SCH ×4 (09:07→20:25)
[2017-09-17] MEDS: THIAMINE HCL 100 MG TABLET PO SCH ×2 (09:07→16:28)
[2017-09-17] MEDS: MULTIVITAMINS WITH MINERALS, THERAPEUTIC TABLET PO SCH (09:07)
[2017-09-17] MEDS: NALTREXONE HCL 50 MG TABLET PO SCH (09:07)
[2017-09-17] MEDS: FOLIC ACID 1 MG TABLET PO SCH (09:07)
[2017-09-17 16:28] VITALS: BP 152/92
[2017-09-17] MEDS: LORazepam 2 MG TABLET PO PRN (16:28)
[2017-09-17] MEDS: OLANZapine 10 MG TABLET PO SCH (20:25)
[2017-09-17] MEDS: ZOLPIDEM TARTRATE 10 MG TABLET PO PRN (20:25)
[2017-09-17 22:30] VITALS: BP 145/83
[2017-09-18 08:08] VITALS: BP 156/108
[2017-09-18] MEDS: MULTIVITAMINS WITH MINERALS, THERAPEUTIC TABLET PO SCH (08:23)
[2017-09-18] MEDS: NALTREXONE HCL 50 MG TABLET PO SCH (08:23)
[2017-09-18] MEDS: PROPRANOLOL HCL 20 MG TABLET PO SCH ×4 (08:23→20:29)
[2017-09-18] MEDS: THIAMINE HCL 100 MG TABLET PO SCH ×2 (08:23→16:19)
[2017-09-18] MEDS: DULoxetine HCL 60 MG CAPSULE PO SCH (08:23)
[2017-09-18] MEDS: FOLIC ACID 1 MG TABLET PO SCH (08:23)
[2017-09-18] MEDS ORDERED: PALIPERIDONE 3 MG ER TABLET PO PRN (15:45)
[2017-09-18 16:10] VITALS: BP 143/85
[2017-09-18] MEDS ORDERED: PALIPERIDONE PALMITATE 234 MG/1.5 ML SYRINGE IM ONE (21:00)
[2017-09-18] MEDS ORDERED: PALIPERIDONE 3 MG ER TABLET PO SCH (21:00)
[2017-09-19 07:15] VITALS: BP 135/78
[2017-09-19] MEDS: PROPRANOLOL HCL 20 MG TABLET PO SCH ×4 (08:59→20:11)
[2017-09-19] MEDS: THIAMINE HCL 100 MG TABLET PO SCH ×2 (08:59→16:18)
[2017-09-19] MEDS: NALTREXONE HCL 50 MG TABLET PO SCH (08:59)
[2017-09-19] MEDS: DULoxetine HCL 60 MG CAPSULE PO SCH (08:59)
[2017-09-19] MEDS: MULTIVITAMINS WITH MINERALS, THERAPEUTIC TABLET PO SCH (08:59)
[2017-09-19] MEDS: FOLIC ACID 1 MG TABLET PO SCH (08:59)
[2017-09-19] MEDS: LISINOPRIL 10 MG TABLET PO SCH (08:59)
[2017-09-19 10:30] VITALS: BP 138/90
[2017-09-19] MEDS: ACETAMINOPHEN 325 MG TABLET PO PRN (10:33)
[2017-09-19 11:33] VITALS: BP 134/88
[2017-09-19 16:35] VITALS: BP 116/77
[2017-09-19] MEDS: ZOLPIDEM TARTRATE 10 MG TABLET PO PRN (22:37)
[2017-09-20 08:23] VITALS: BP 118/74
[2017-09-20] MEDS: NALTREXONE HCL 50 MG TABLET PO SCH (08:55)
[2017-09-20] MEDS: THIAMINE HCL 100 MG TABLET PO SCH ×2 (08:55→16:56)
[2017-09-20] MEDS: FOLIC ACID 1 MG TABLET PO SCH (08:55)
[2017-09-20] MEDS: MULTIVITAMINS WITH MINERALS, THERAPEUTIC TABLET PO SCH (08:55)
[2017-09-20] MEDS: PROPRANOLOL HCL 20 MG TABLET PO SCH ×4 (08:56→21:02)
[2017-09-20] MEDS ORDERED: DULoxetine HCL 20 MG CAPSULE PO SCH (09:00)
[2017-09-20] MEDS: LISINOPRIL 10 MG TABLET PO SCH (09:48)
[2017-09-20 16:00] VITALS: BP 117/79
[2017-09-21 04:55] VITALS: BP 150/78
[2017-09-21] MEDS: NALTREXONE HCL 50 MG TABLET PO SCH (08:00)
[2017-09-21] MEDS: MULTIVITAMINS WITH MINERALS, THERAPEUTIC TABLET PO SCH (08:01)
[2017-09-21] MEDS: LISINOPRIL 10 MG TABLET PO SCH (08:01)
[2017-09-21] MEDS: THIAMINE HCL 100 MG TABLET PO SCH (08:01)
[2017-09-21] MEDS: FOLIC ACID 1 MG TABLET PO SCH (08:01)
[2017-09-21] MEDS: PROPRANOLOL HCL 20 MG TABLET PO SCH ×2 (08:02→12:47)
[2017-09-21 08:17] VITALS: BP 119/84
[2017-09-21] MEDS ORDERED: DULoxetine HCL 30 MG CAPSULE PO SCH (09:00)
[2017-09-21] MEDS ORDERED: PALIPERIDONE PALMITATE 156 MG/ML SYRINGE IM ONE (12:00)
[2017-09-21] MEDS ORDERED: VENL-67 PO (12:13)
[2017-09-21] MEDS ORDERED: PALI156D IM (12:15)
[2017-09-22] MEDS ORDERED: PALIPERIDONE PALMITATE 156 MG/ML SYRINGE IM ONE (09:00)
[2017-10-18] MEDS ORDERED: PALIPERIDONE PALMITATE 156 MG/ML SYRINGE IM SCH (09:00)
== END 2017-09-21 13:10 | disposition home or self-care (01) | DRG 750 ==
LOC: B2S 22:38 → EDSTATUS 22:38 → B3A 23:16
PROVIDERS: ADMIT Psychiatry & Neurology Psychiatry; ATTEND Psychiatry & Neurology Psychiatry
DX: F25.0 Schizoaffective disorder, bipolar type (principal); Z68.42 Body mass index [BMI] 45.0-49.9, adult; I10 Essential (primary) hypertension; E66.01 Morbid (severe) obesity due to excess calories; E55.9 Vitamin D deficiency, unspecified; F15.10 Other stimulant abuse, uncomplicated; F17.200 Nicotine dependence, unspecified, uncomplicated; G47.00 Insomnia, unspecified; F12.10 Cannabis abuse, uncomplicated; F10.10 Alcohol abuse, uncomplicated; J44.9 Chronic obstructive pulmonary disease, unspecified; K21.9 Gastro-esophageal reflux disease without esophagitis; H54.40 Blindness, one eye, unspecified eye; Z91.14 Patient's other noncompliance with medication regimen; Z79.899 Other long term (current) drug therapy; Z59.0 Homelessness
CPT/HCPCS: 87081; 99285

== ENCOUNTER 2017-09-28 10:46 | Emergency (ER) | payer MEDICAID, OTHER ==
[~2017-09-28] VITALS: Ht 157.5 cm; Wt 131.4 kg
[~2017-09-28 10:46] MED LIST changes: -DSS100 PO; -DULO20CA30 PO; -OLAN10TA20 PO; -OLAN10TA3 PO; -OMEP20 PO; +PALI156D IM; +VENL-67 PO; -VITAD1000 PO
[2017-09-28 10:48] VITALS: BP 131/76
[2017-09-28] MEDS ORDERED: ACETAMINOPHEN 500 MG TABLET PO ONE (12:30)
== END 2017-09-28 14:42 | disposition home or self-care (01) ==
LOC: EMS 10:47
DX: M19.90 Unspecified osteoarthritis, unspecified site (principal); M77.9 Enthesopathy, unspecified; J44.9 Chronic obstructive pulmonary disease, unspecified; E66.9 Obesity, unspecified; I10 Essential (primary) hypertension; F17.210 Nicotine dependence, cigarettes, uncomplicated; Z59.0 Homelessness
CPT/HCPCS: 99284; 99406

== ENCOUNTER 2017-12-31 22:14 | Inpatient (IN) | payer MEDICAID, OTHER ==
[~2017-12-31] VITALS: Ht 157.5 cm; Wt 131.5 kg
[~2017-12-31 22:14] MED LIST changes: -PROP20 PO; +PROP20TA96 PO
[2017-12-31 22:45] VITALS: BP 100/63
[2017-12-31] MEDS ORDERED: LORazepam 2 MG TABLET PO PRN (22:45)
[2017-12-31] MEDS ORDERED: HALOPERIDOL 5 MG TABLET PO PRN (22:45)
[2018-01-01 00:45] VITALS: BP 116/83
[2018-01-01] MEDS ORDERED: ALBUTEROL SULFATE HFA 90 MCG/PUFF 8 GM INHALER IH PRN (07:15)
[2018-01-01] MEDS ORDERED: PETROLATUM,WHITE 71 GM JELLY TP PRN (07:15)
[2018-01-01] MEDS ORDERED: CloNIDine HCL 0.1 MG TABLET PO PRN (07:15)
[2018-01-01] MEDS ORDERED: BENZOCAINE/MENTHOL LOZENGE MM PRN (07:15)
[2018-01-01] MEDS ORDERED: MAGNESIUM HYDROXIDE SUSPENSION 30 ML UDCUP PO PRN (07:15)
[2018-01-01] MEDS ORDERED: LOPERAMIDE HCL 2 MG CAPSULE PO PRN (07:15)
[2018-01-01] MEDS ORDERED: ONDANSETRON HCL 4 MG TABLET PO PRN (07:15)
[2018-01-01] MEDS ORDERED: MAG HYDROX/AL HYDROX/SIMETH ES 30 ML SUSPENSION UDCUP PO PRN (07:15)
[2018-01-01] MEDS ORDERED: BACITRACIN 28.4 GM OINTMENT TP PRN (07:15)
[2018-01-01] MEDS: DOCUSATE SODIUM 100 MG CAPSULE PO SCH (08:33)
[2018-01-01] MEDS: CHOLECALCIFEROL (VIT D3) 1,000 UNITS TABLET PO SCH (08:34)
[2018-01-01] MEDS: LISINOPRIL 20 MG TABLET PO SCH (08:34)
[2018-01-01] MEDS: OMEPRAZOLE 20 MG CAPSULE PO SCH (08:34)
[2018-01-01 08:44] VITALS: BP 117/66
[2018-01-01] MEDS: AMOXICILLIN TRIHYDRATE 500 MG CAPSULE PO SCH ×3 (09:00→16:19)
[2018-01-01 16:30] VITALS: BP 125/78
[2018-01-01] MEDS: RisperiDONE 2 MG TABLET PO SCH (20:25)
[2018-01-02 05:50] VITALS: BP 118/81
[2018-01-02] MEDS: RisperiDONE 2 MG TABLET PO SCH ×2 (08:33→20:42)
[2018-01-02] MEDS: DOCUSATE SODIUM 100 MG CAPSULE PO SCH (08:33)
[2018-01-02] MEDS: CHOLECALCIFEROL (VIT D3) 1,000 UNITS TABLET PO SCH (08:33)
[2018-01-02] MEDS: OMEPRAZOLE 20 MG CAPSULE PO SCH (08:33)
[2018-01-02] MEDS: IBUPROFEN 600 MG TABLET PO PRN ×2 (08:33→17:06)
[2018-01-02] MEDS: LISINOPRIL 20 MG TABLET PO SCH (08:33)
[2018-01-02] MEDS: AMOXICILLIN TRIHYDRATE 500 MG CAPSULE PO SCH ×3 (08:33→17:06)
[2018-01-02 08:49] VITALS: BP 136/72
[2018-01-02 16:10] VITALS: BP 122/81
[2018-01-02] MEDS: ACETAMINOPHEN 325 MG TABLET PO PRN (18:25)
[2018-01-02] MEDS: ZOLPIDEM TARTRATE 10 MG TABLET PO PRN (20:42)
[2018-01-03 02:03] VITALS: BP 120/77
[2018-01-03 08:47] VITALS: BP 170/98
[2018-01-03] MEDS: DOCUSATE SODIUM 100 MG CAPSULE PO SCH (09:16)
[2018-01-03] MEDS: OMEPRAZOLE 20 MG CAPSULE PO SCH (09:16)
[2018-01-03] MEDS: LISINOPRIL 20 MG TABLET PO SCH (09:16)
[2018-01-03] MEDS: RisperiDONE 2 MG TABLET PO SCH ×2 (09:16→20:28)
[2018-01-03] MEDS: AMOXICILLIN TRIHYDRATE 500 MG CAPSULE PO SCH ×3 (09:16→16:32)
[2018-01-03] MEDS: CHOLECALCIFEROL (VIT D3) 1,000 UNITS TABLET PO SCH (09:16)
[2018-01-03 09:24] LABS: HEMOGLOBIN A1C 5.6 % (4.5-6.2)
[2018-01-03 09:32] LABS: BASOPHILS % (AUTO) 0.5 % (0.0-2.0); EOSINOPHILS % (AUTO) 7.3 % (1.0-6.0); HEMATOCRIT 42.2 % (36-46); HEMOGLOBIN 13.9 g/dL (12.0-16.0); LYMPHOCYTES # (AUTO) 1.5 K/uL (1.0-4.8); LYMPHOCYTES % (AUTO) 36.6 % (22.0-44.0); MEAN CORPUSCULAR HEMOGLOBIN 27.7 pg (26.0-34.0); MEAN CORPUSCULAR HGB CONC 32.9 G/dL (31.0-37.0); MEAN CORPUSCULAR VOLUME 84 fL (80-100); MONOCYTES # (AUTO) 0.4 K/uL (0.1-1.0); MONOCYTES % (AUTO) 10.2 % (2.0-9.0); NEUTROPHILS # (AUTO) 1.8 K/uL (1.8-7.7); NEUTROPHILS % (AUTO) 45.4 % (40.0-70.0); PLATELET COUNT (AUTO) 232 K/uL (150-450); RED BLOOD CELL COUNT(AUTO) 5.02 MIL/uL (4.00-5.20); RED CELL DISTRIBUTION WIDTH 15.3 % (11.5-14.5)
[2018-01-03 09:48] LABS: ALANINE AMINOTRANSFERASE 25 U/L (12-78); ALBUMIN 3.6 g/dL (3.4-5.0); ALKALINE PHOSPHATASE 76 U/L (46-116); ANION GAP 3 mmol/L (8-16); ASPARTATE AMINOTRANSFERASE 12 U/L (15-37); BILIRUBIN,TOTAL 0.6 mg/dL (0.1-1.0); CALCIUM, TOTAL 8.9 mg/dL (8.8-10.5); CARBON DIOXIDE 35 mmol/L (22-29); CHLORIDE 103 mmol/L (98-107); CHOL/HDL RATIO 2.9 (3.9-5.7); CHOLESTEROL 164 mg/dL (131-200); CREATININE 0.73 mg/dL (0.60-1.30); GLOMERULAR FILTR. RATE CALC > 60 mL/min (>60); GLUCOSE,RANDOM 96 mg/dL (70-110); HDL CHOLESTEROL 57 mg/dL (40-60); LDL CHOL (CALC.) 91 mg/dL (0-130); POTASSIUM 4.5 mmol/L (3.5-5.1); SODIUM SERUM 141 mmol/L (136-145); THYROID STIMULATING HORMONE 1.07 uIU/mL (0.36-3.74); TOTAL PROTEIN, SERUM 7.3 g/dL (6.4-8.2); TRIGLYCERIDES 78 mg/dL (15-150); UREA NITROGEN, BLOOD 8 mg/dL (7-18)
[2018-01-03 11:30] VITALS: BP 139/78
[2018-01-03 16:32] VITALS: BP 127/86
[2018-01-03] MEDS: IBUPROFEN 600 MG TABLET PO PRN ×2 (16:32→23:55)
[2018-01-03 16:34] VITALS: BP 127/86
[2018-01-03 23:55] VITALS: BP 142/90
[2018-01-04 08:25] VITALS: BP 130/84
[2018-01-04] MEDS: OMEPRAZOLE 20 MG CAPSULE PO SCH (09:29)
[2018-01-04] MEDS: AMOXICILLIN TRIHYDRATE 500 MG CAPSULE PO SCH ×3 (09:29→16:13)
[2018-01-04] MEDS: DOCUSATE SODIUM 100 MG CAPSULE PO SCH (09:29)
[2018-01-04] MEDS: RisperiDONE 2 MG TABLET PO SCH ×2 (09:29→20:58)
[2018-01-04] MEDS: CHOLECALCIFEROL (VIT D3) 1,000 UNITS TABLET PO SCH (09:29)
[2018-01-04] MEDS: LISINOPRIL 20 MG TABLET PO SCH (09:29)
[2018-01-04 12:38] VITALS: BP 140/84
[2018-01-04] MEDS: IBUPROFEN 600 MG TABLET PO PRN (12:40)
[2018-01-04 13:40] VITALS: BP 123/73
[2018-01-04 16:00] VITALS: BP 120/90
[2018-01-05 07:05] VITALS: BP 133/94
[2018-01-05 08:50] VITALS: BP 123/100
[2018-01-05] MEDS: RisperiDONE 2 MG TABLET PO SCH ×2 (08:59→20:31)
[2018-01-05] MEDS: OMEPRAZOLE 20 MG CAPSULE PO SCH (08:59)
[2018-01-05] MEDS: DOCUSATE SODIUM 100 MG CAPSULE PO SCH (08:59)
[2018-01-05] MEDS: LISINOPRIL 20 MG TABLET PO SCH (08:59)
[2018-01-05] MEDS: AMOXICILLIN TRIHYDRATE 500 MG CAPSULE PO SCH ×3 (09:00→16:30)
[2018-01-05] MEDS: CHOLECALCIFEROL (VIT D3) 1,000 UNITS TABLET PO SCH (09:00)
[2018-01-05 16:25] VITALS: BP 103/75
[2018-01-05] MEDS: ZOLPIDEM TARTRATE 10 MG TABLET PO PRN (21:21)
[2018-01-06 01:37] VITALS: BP 125/82
[2018-01-06 09:00] VITALS: BP 174/90
[2018-01-06] MEDS: OMEPRAZOLE 20 MG CAPSULE PO SCH (09:00)
[2018-01-06] MEDS: DOCUSATE SODIUM 100 MG CAPSULE PO SCH (09:00)
[2018-01-06] MEDS: CHOLECALCIFEROL (VIT D3) 1,000 UNITS TABLET PO SCH (09:00)
[2018-01-06] MEDS: LISINOPRIL 20 MG TABLET PO SCH (09:00)
[2018-01-06] MEDS: RisperiDONE 2 MG TABLET PO SCH (09:00)
[2018-01-06] MEDS: AMOXICILLIN TRIHYDRATE 500 MG CAPSULE PO SCH ×3 (09:00→16:24)
[2018-01-06] MEDS ORDERED: GuaiFENesin/D-METHORPHAN [SUGAR-FREE] 200-20MG/10 ML SYRUP UDCUP PO PRN (11:00)
[2018-01-06] MEDS ORDERED: HydrOXYzine PAMOATE 50 MG CAPSULE PO PRN (11:00)
[2018-01-06 11:39] VITALS: BP 113/70
[2018-01-06] MEDS ORDERED: QUEtiapine FUMARATE 100 MG TABLET PO PRN (15:30)
[2018-01-06 16:06] VITALS: BP 110/70
[2018-01-06] MEDS: THIAMINE HCL 100 MG TABLET PO SCH (16:24)
[2018-01-06 20:41] VITALS: BP 120/69
[2018-01-06] MEDS: IBUPROFEN 600 MG TABLET PO PRN (20:41)
[2018-01-06] MEDS ORDERED: QUEtiapine FUMARATE 200 MG TABLET PO SCH (21:00)
[2018-01-07 03:32] VITALS: BP 113/81
[2018-01-07 08:45] VITALS: BP 107/69
[2018-01-07] MEDS: AMOXICILLIN TRIHYDRATE 500 MG CAPSULE PO SCH ×3 (09:35→17:00)
[2018-01-07] MEDS: DOCUSATE SODIUM 100 MG CAPSULE PO SCH (09:35)
[2018-01-07] MEDS: FOLIC ACID 1 MG TABLET PO SCH (09:36)
[2018-01-07] MEDS: LISINOPRIL 20 MG TABLET PO SCH (09:36)
[2018-01-07] MEDS: THIAMINE HCL 100 MG TABLET PO SCH ×2 (09:36→17:00)
[2018-01-07] MEDS: CHOLECALCIFEROL (VIT D3) 1,000 UNITS TABLET PO SCH (09:36)
[2018-01-07] MEDS: MULTIVITAMINS WITH MINERALS, THERAPEUTIC TABLET PO SCH (09:36)
[2018-01-07] MEDS: OMEPRAZOLE 20 MG CAPSULE PO SCH (09:36)
[2018-01-07] MEDS: NALTREXONE HCL 50 MG TABLET PO SCH (10:17)
[2018-01-07 13:01] VITALS: BP 120/79
[2018-01-07] MEDS: IBUPROFEN 600 MG TABLET PO PRN (13:06)
[2018-01-07 16:32] VITALS: BP 145/86
[2018-01-07] MEDS: ACETAMINOPHEN 325 MG TABLET PO PRN (17:00)
[2018-01-07] MEDS: ZOLPIDEM TARTRATE 10 MG TABLET PO PRN (20:50)
[2018-01-07] MEDS ORDERED: QUEtiapine FUMARATE 200 MG TABLET PO SCH (21:00)
[2018-01-08 06:48] VITALS: BP 101/63
[2018-01-08 09:07] VITALS: BP 118/76
[2018-01-08] MEDS: MULTIVITAMINS WITH MINERALS, THERAPEUTIC TABLET PO SCH (09:07)
[2018-01-08] MEDS: OMEPRAZOLE 20 MG CAPSULE PO SCH (09:07)
[2018-01-08] MEDS: FOLIC ACID 1 MG TABLET PO SCH (09:07)
[2018-01-08] MEDS: LISINOPRIL 20 MG TABLET PO SCH (09:07)
[2018-01-08] MEDS: THIAMINE HCL 100 MG TABLET PO SCH ×2 (09:07→16:19)
[2018-01-08] MEDS: CHOLECALCIFEROL (VIT D3) 1,000 UNITS TABLET PO SCH (09:07)
[2018-01-08] MEDS: NALTREXONE HCL 50 MG TABLET PO SCH (09:07)
[2018-01-08] MEDS: DOCUSATE SODIUM 100 MG CAPSULE PO SCH (09:07)
[2018-01-08] MEDS: IBUPROFEN 600 MG TABLET PO PRN (09:49)
[2018-01-08 16:13] VITALS: BP 119/80
[2018-01-08] MEDS ORDERED: QUEtiapine FUMARATE 300 MG TABLET PO SCH (21:00)
[2018-01-08] MEDS: ZOLPIDEM TARTRATE 10 MG TABLET PO PRN (21:17)
[2018-01-09 01:41] VITALS: BP 110/68
[2018-01-09 08:33] VITALS: BP 117/73
[2018-01-09] MEDS: OMEPRAZOLE 20 MG CAPSULE PO SCH (09:03)
[2018-01-09] MEDS: LISINOPRIL 20 MG TABLET PO SCH (09:03)
[2018-01-09] MEDS: NALTREXONE HCL 50 MG TABLET PO SCH (09:03)
[2018-01-09] MEDS: DOCUSATE SODIUM 100 MG CAPSULE PO SCH (09:03)
[2018-01-09] MEDS: CHOLECALCIFEROL (VIT D3) 1,000 UNITS TABLET PO SCH (09:04)
[2018-01-09] MEDS: MULTIVITAMINS WITH MINERALS, THERAPEUTIC TABLET PO SCH (09:04)
[2018-01-09] MEDS: FOLIC ACID 1 MG TABLET PO SCH (09:04)
[2018-01-09] MEDS: THIAMINE HCL 100 MG TABLET PO SCH ×2 (09:04→16:08)
[2018-01-09 16:06] VITALS: BP 115/74
[2018-01-09] MEDS ORDERED: QUEtiapine FUMARATE 200 MG TABLET PO SCH (21:00)
[2018-01-09] MEDS: ZOLPIDEM TARTRATE 10 MG TABLET PO PRN (21:01)
[2018-01-10 05:32] VITALS: BP 116/77
[2018-01-10] MEDS: NALTREXONE HCL 50 MG TABLET PO SCH (08:43)
[2018-01-10] MEDS: THIAMINE HCL 100 MG TABLET PO SCH (08:43)
[2018-01-10] MEDS: DOCUSATE SODIUM 100 MG CAPSULE PO SCH (08:43)
[2018-01-10] MEDS: CHOLECALCIFEROL (VIT D3) 1,000 UNITS TABLET PO SCH (08:43)
[2018-01-10] MEDS: FOLIC ACID 1 MG TABLET PO SCH (08:44)
[2018-01-10] MEDS: OMEPRAZOLE 20 MG CAPSULE PO SCH (08:44)
[2018-01-10] MEDS: LISINOPRIL 20 MG TABLET PO SCH (08:44)
[2018-01-10] MEDS: MULTIVITAMINS WITH MINERALS, THERAPEUTIC TABLET PO SCH (08:44)
[2018-01-10 08:46] VITALS: BP 117/67
[2018-01-10] MEDS ORDERED: NALT50TA PO (14:25)
[2018-01-10] MEDS ORDERED: QUET200T29 PO (14:25)
[2018-01-10] MEDS ORDERED: VITAD1000 PO (14:29)
[2018-01-10] MEDS ORDERED: OMEP20 PO (14:29)
[2018-01-10] MEDS ORDERED: DSS100 PO (14:29)
== END 2018-01-10 15:35 | disposition home or self-care (01) | DRG 750 ==
LOC: EDSTATUS 22:30 → B2S 22:42
PROVIDERS: ATTEND Psychiatry & Neurology Psychiatry
DX: F25.1 Schizoaffective disorder, depressive type (principal); R45.851 Suicidal ideations; Z68.43 Body mass index [BMI] 50.0-59.9, adult; E66.01 Morbid (severe) obesity due to excess calories; I10 Essential (primary) hypertension; J44.9 Chronic obstructive pulmonary disease, unspecified; K21.9 Gastro-esophageal reflux disease without esophagitis; E55.9 Vitamin D deficiency, unspecified; D72.819 Decreased white blood cell count, unspecified; K04.7 Periapical abscess without sinus; G89.29 Other chronic pain; G47.00 Insomnia, unspecified; F41.9 Anxiety disorder, unspecified; F15.10 Other stimulant abuse, uncomplicated; F12.10 Cannabis abuse, uncomplicated
CPT/HCPCS: 83036; 84439; 84443

== ENCOUNTER 2018-03-09 01:58 | Inpatient (IN) | payer MEDICAID ==
[~2018-03-09] VITALS: Ht 162.6 cm; Wt 130.2 kg
[~2018-03-09 01:58] MED LIST changes: +DSS100 PO; -LISI-662 PO; +OMEP20 PO; -PALI156D IM; -PROP20TA96 PO; +QUET200T29 PO; -VENL-67 PO; +VITAD1000 PO
[2018-03-09] MEDS ORDERED: HALOPERIDOL 5 MG TABLET PO PRN (04:15)
[2018-03-09 05:51] VITALS: BP 135/86
[2018-03-09] MEDS ORDERED: ACETAMINOPHEN 325 MG TABLET PO PRN (11:30)
[2018-03-09 11:52] VITALS: BP 104/64
[2018-03-09] MEDS: IBUPROFEN 600 MG TABLET PO PRN ×2 (11:52→21:26)
[2018-03-09 16:11] VITALS: BP 130/75
[2018-03-09] MEDS: DULoxetine HCL 30 MG CAPSULE PO SCH (16:50)
[2018-03-09] MEDS ORDERED: QUEtiapine FUMARATE 200 MG TABLET PO SCH (21:00)
[2018-03-10 08:45] VITALS: BP 119/79
[2018-03-10] MEDS: DULoxetine HCL 30 MG CAPSULE PO SCH ×2 (08:46→17:27)
[2018-03-10] MEDS: DOCUSATE SODIUM 100 MG CAPSULE PO SCH (08:46)
[2018-03-10] MEDS: CHOLECALCIFEROL (VIT D3) 1,000 UNITS TABLET PO SCH (08:46)
[2018-03-10] MEDS: OMEPRAZOLE 20 MG CAPSULE PO SCH (08:46)
[2018-03-10] MEDS ORDERED: ACETAMINOPHEN 325 MG TABLET PO PRN (11:15)
[2018-03-10] MEDS ORDERED: LOPERAMIDE HCL 2 MG CAPSULE PO PRN (11:15)
[2018-03-10] MEDS ORDERED: HydrOXYzine PAMOATE 50 MG CAPSULE PO PRN (11:15)
[2018-03-10] MEDS ORDERED: PROMETHAZINE HCL 25 MG TABLET PO PRN (11:15)
[2018-03-10] MEDS ORDERED: GuaiFENesin/D-METHORPHAN [SUGAR-FREE] 200-20MG/10 ML SYRUP UDCUP PO PRN (11:15)
[2018-03-10] MEDS ORDERED: MAG HYDROX/AL HYDROX/SIMETH ES 30 ML SUSPENSION UDCUP PO PRN (11:15)
[2018-03-10] MEDS ORDERED: MAGNESIUM HYDROXIDE SUSPENSION 30 ML UDCUP PO PRN (11:15)
[2018-03-10] MEDS ORDERED: OLANZapine 5 MG RAPDIS TABLET PO PRN (16:30)
[2018-03-10] MEDS: MUPIROCIN CALCIUM 2% 22 GM OINTMENT NASAL SCH (17:00)
[2018-03-10 17:03] VITALS: BP 154/89
[2018-03-10] MEDS: IBUPROFEN 600 MG TABLET PO PRN (17:05)
[2018-03-10] MEDS: LORazepam 2 MG TABLET PO PRN (17:05)
[2018-03-10] MEDS: THIAMINE HCL 100 MG TABLET PO SCH (17:28)
[2018-03-10 18:05] VITALS: BP 146/83
[2018-03-10] MEDS: DIVALPROEX SODIUM 500 MG ER TABLET PO SCH (20:41)
[2018-03-10] MEDS: ZOLPIDEM TARTRATE 10 MG TABLET PO PRN (20:41)
[2018-03-11 06:41] VITALS: BP 138/74
[2018-03-11 08:01] VITALS: BP 157/82
[2018-03-11] MEDS ORDERED: OLANZapine 5 MG RAPDIS TABLET PO SCH (09:00)
[2018-03-11] MEDS: OMEPRAZOLE 20 MG CAPSULE PO SCH (09:16)
[2018-03-11] MEDS: FOLIC ACID 1 MG TABLET PO SCH (09:16)
[2018-03-11] MEDS: DOCUSATE SODIUM 100 MG CAPSULE PO SCH (09:16)
[2018-03-11] MEDS: CHOLECALCIFEROL (VIT D3) 1,000 UNITS TABLET PO SCH (09:16)
[2018-03-11] MEDS: MULTIVITAMINS WITH MINERALS, THERAPEUTIC TABLET PO SCH (09:16)
[2018-03-11] MEDS: NALTREXONE HCL 50 MG TABLET PO SCH (09:16)
[2018-03-11] MEDS: DULoxetine HCL 30 MG CAPSULE PO SCH ×2 (09:17→16:33)
[2018-03-11] MEDS: THIAMINE HCL 100 MG TABLET PO SCH ×2 (09:17→16:33)
[2018-03-11] MEDS: MUPIROCIN CALCIUM 2% 22 GM OINTMENT NASAL SCH ×2 (09:22→16:33)
[2018-03-11 16:19] VITALS: BP 128/79
[2018-03-11] MEDS: LORazepam 2 MG TABLET PO PRN (16:33)
[2018-03-11] MEDS: DIVALPROEX SODIUM 500 MG ER TABLET PO SCH (20:21)
[2018-03-12 08:34] VITALS: BP 181/98
[2018-03-12] MEDS: CloNIDine HCL 0.1 MG TABLET PO PRN (08:48)
[2018-03-12] MEDS: NALTREXONE HCL 50 MG TABLET PO SCH (08:49)
[2018-03-12] MEDS: DULoxetine HCL 30 MG CAPSULE PO SCH ×2 (08:49→16:56)
[2018-03-12] MEDS: FOLIC ACID 1 MG TABLET PO SCH (08:49)
[2018-03-12] MEDS: DOCUSATE SODIUM 100 MG CAPSULE PO SCH (08:49)
[2018-03-12] MEDS: OMEPRAZOLE 20 MG CAPSULE PO SCH (08:49)
[2018-03-12] MEDS: MULTIVITAMINS WITH MINERALS, THERAPEUTIC TABLET PO SCH (08:49)
[2018-03-12] MEDS: THIAMINE HCL 100 MG TABLET PO SCH ×2 (08:49→16:56)
[2018-03-12] MEDS: MUPIROCIN CALCIUM 2% 22 GM OINTMENT NASAL SCH ×2 (08:50→16:56)
[2018-03-12] MEDS: CHOLECALCIFEROL (VIT D3) 1,000 UNITS TABLET PO SCH (08:52)
[2018-03-12] MEDS ORDERED: OLANZapine 10 MG RAPDIS TABLET PO SCH ×2 (09:00→21:00)
[2018-03-12 09:48] VITALS: BP 148/84
[2018-03-12 13:04] VITALS: BP 106/60
[2018-03-12] MEDS ORDERED: PALIPERIDONE PALMITATE 234 MG/1.5 ML SYRINGE IM ONE (14:00)
[2018-03-12] MEDS ORDERED: PALIPERIDONE 1.5 MG ER TABLET PO PRN (14:00)
[2018-03-12 16:49] VITALS: BP 124/71
[2018-03-12] MEDS: DIVALPROEX SODIUM 500 MG ER TABLET PO SCH (20:48)
[2018-03-12] MEDS ORDERED: PALIPERIDONE 3 MG ER TABLET PO SCH (21:00)
[2018-03-13 04:33] VITALS: BP 136/76
[2018-03-13] MEDS: THIAMINE HCL 100 MG TABLET PO SCH ×2 (08:35→16:27)
[2018-03-13] MEDS: NALTREXONE HCL 50 MG TABLET PO SCH (08:35)
[2018-03-13] MEDS: OMEPRAZOLE 20 MG CAPSULE PO SCH (08:35)
[2018-03-13] MEDS: MULTIVITAMINS WITH MINERALS, THERAPEUTIC TABLET PO SCH (08:35)
[2018-03-13] MEDS: MUPIROCIN CALCIUM 2% 22 GM OINTMENT NASAL SCH ×2 (08:35→16:27)
[2018-03-13] MEDS: DOCUSATE SODIUM 100 MG CAPSULE PO SCH (08:35)
[2018-03-13] MEDS: CHOLECALCIFEROL (VIT D3) 1,000 UNITS TABLET PO SCH (08:35)
[2018-03-13] MEDS: DULoxetine HCL 30 MG CAPSULE PO SCH ×2 (08:35→16:27)
[2018-03-13] MEDS: FOLIC ACID 1 MG TABLET PO SCH (08:35)
[2018-03-13 08:46] VITALS: BP 143/81
[2018-03-13 16:37] VITALS: BP 183/101
[2018-03-13] MEDS: CloNIDine HCL 0.1 MG TABLET PO PRN (16:38)
[2018-03-13 17:38] VITALS: BP 140/90
[2018-03-13] MEDS: DIVALPROEX SODIUM 500 MG ER TABLET PO SCH (20:29)
[2018-03-13] MEDS: ZOLPIDEM TARTRATE 10 MG TABLET PO PRN (22:15)
[2018-03-14 04:06] VITALS: BP 140/88
[2018-03-14 08:32] VITALS: BP 160/89
[2018-03-14] MEDS: NALTREXONE HCL 50 MG TABLET PO SCH (09:38)
[2018-03-14] MEDS: FOLIC ACID 1 MG TABLET PO SCH (09:38)
[2018-03-14] MEDS: OMEPRAZOLE 20 MG CAPSULE PO SCH (09:38)
[2018-03-14] MEDS: THIAMINE HCL 100 MG TABLET PO SCH ×2 (09:38→16:42)
[2018-03-14] MEDS: MULTIVITAMINS WITH MINERALS, THERAPEUTIC TABLET PO SCH (09:38)
[2018-03-14] MEDS: DOCUSATE SODIUM 100 MG CAPSULE PO SCH (09:38)
[2018-03-14] MEDS: CHOLECALCIFEROL (VIT D3) 1,000 UNITS TABLET PO SCH (09:38)
[2018-03-14] MEDS: LORazepam 2 MG TABLET PO PRN (09:38)
[2018-03-14] MEDS: MUPIROCIN CALCIUM 2% 22 GM OINTMENT NASAL SCH ×2 (09:38→16:42)
[2018-03-14] MEDS: DULoxetine HCL 30 MG CAPSULE PO SCH ×2 (09:38→16:42)
[2018-03-14 16:12] VITALS: BP 126/84
[2018-03-14] MEDS: DIVALPROEX SODIUM 500 MG ER TABLET PO SCH (20:17)
[2018-03-14] MEDS: ZOLPIDEM TARTRATE 10 MG TABLET PO PRN (21:36)
[2018-03-15 05:55] VITALS: BP 140/90
[2018-03-15 08:41] VITALS: BP 149/96
[2018-03-15] MEDS: MULTIVITAMINS WITH MINERALS, THERAPEUTIC TABLET PO SCH (09:26)
[2018-03-15] MEDS: FOLIC ACID 1 MG TABLET PO SCH (09:26)
[2018-03-15] MEDS: THIAMINE HCL 100 MG TABLET PO SCH ×2 (09:26→16:38)
[2018-03-15] MEDS: MUPIROCIN CALCIUM 2% 22 GM OINTMENT NASAL SCH (09:26)
[2018-03-15] MEDS: DULoxetine HCL 30 MG CAPSULE PO SCH ×2 (09:26→16:38)
[2018-03-15] MEDS: DOCUSATE SODIUM 100 MG CAPSULE PO SCH (09:26)
[2018-03-15] MEDS: OMEPRAZOLE 20 MG CAPSULE PO SCH (09:26)
[2018-03-15] MEDS: NALTREXONE HCL 50 MG TABLET PO SCH (09:26)
[2018-03-15] MEDS: CHOLECALCIFEROL (VIT D3) 1,000 UNITS TABLET PO SCH (09:26)
[2018-03-15] MEDS: LORazepam 2 MG TABLET PO PRN (16:38)
[2018-03-15 18:37] VITALS: BP 152/102
[2018-03-15] MEDS: DIVALPROEX SODIUM 500 MG ER TABLET PO SCH (20:37)
[2018-03-15] MEDS: ZOLPIDEM TARTRATE 10 MG TABLET PO PRN (21:23)
[2018-03-16] MEDS: CHOLECALCIFEROL (VIT D3) 1,000 UNITS TABLET PO SCH (08:20)
[2018-03-16] MEDS: FOLIC ACID 1 MG TABLET PO SCH (08:20)
[2018-03-16] MEDS: DULoxetine HCL 30 MG CAPSULE PO SCH ×2 (08:20→16:26)
[2018-03-16] MEDS: LORazepam 2 MG TABLET PO PRN (08:20)
[2018-03-16] MEDS: MULTIVITAMINS WITH MINERALS, THERAPEUTIC TABLET PO SCH (08:21)
[2018-03-16] MEDS: NALTREXONE HCL 50 MG TABLET PO SCH (08:21)
[2018-03-16] MEDS: OMEPRAZOLE 20 MG CAPSULE PO SCH (08:21)
[2018-03-16] MEDS: THIAMINE HCL 100 MG TABLET PO SCH ×2 (08:21→16:26)
[2018-03-16] MEDS: DOCUSATE SODIUM 100 MG CAPSULE PO SCH (08:21)
[2018-03-16 08:23] VITALS: BP 144/83
[2018-03-16] MEDS ORDERED: PALIPERIDONE PALMITATE 156 MG/ML SYRINGE IM ONE (09:00)
[2018-03-16] MEDS: DIVALPROEX SODIUM 500 MG ER TABLET PO SCH (20:18)
[2018-03-16 21:16] VITALS: BP 143/98
[2018-03-16] MEDS: ZOLPIDEM TARTRATE 10 MG TABLET PO PRN (22:09)
[2018-03-17] MEDS: IBUPROFEN 600 MG TABLET PO PRN ×3 (00:03→21:58)
[2018-03-17 06:53] VITALS: BP 141/80
[2018-03-17] MEDS: FOLIC ACID 1 MG TABLET PO SCH (08:40)
[2018-03-17] MEDS: CloNIDine HCL 0.1 MG TABLET PO PRN (08:40)
[2018-03-17] MEDS: NALTREXONE HCL 50 MG TABLET PO SCH (08:41)
[2018-03-17] MEDS: THIAMINE HCL 100 MG TABLET PO SCH ×2 (08:41→16:26)
[2018-03-17] MEDS: MULTIVITAMINS WITH MINERALS, THERAPEUTIC TABLET PO SCH (08:41)
[2018-03-17] MEDS: DULoxetine HCL 30 MG CAPSULE PO SCH (08:41)
[2018-03-17] MEDS: OMEPRAZOLE 20 MG CAPSULE PO SCH (08:41)
[2018-03-17 08:42] VITALS: BP 161/109
[2018-03-17] MEDS: DOCUSATE SODIUM 100 MG CAPSULE PO SCH (08:43)
[2018-03-17] MEDS: CHOLECALCIFEROL (VIT D3) 1,000 UNITS TABLET PO SCH (08:43)
[2018-03-17 16:40] VITALS: BP 141/92
[2018-03-17] MEDS: DIVALPROEX SODIUM 500 MG ER TABLET PO SCH (20:36)
[2018-03-17 21:55] VITALS: BP 139/89
[2018-03-17] MEDS: ZOLPIDEM TARTRATE 10 MG TABLET PO PRN (21:58)
[2018-03-18 06:42] VITALS: BP 140/88
[2018-03-18 08:31] VITALS: BP 147/60
[2018-03-18] MEDS: OMEPRAZOLE 20 MG CAPSULE PO SCH (08:45)
[2018-03-18] MEDS: DOCUSATE SODIUM 100 MG CAPSULE PO SCH (08:46)
[2018-03-18] MEDS: DULoxetine HCL 30 MG CAPSULE PO SCH (08:46)
[2018-03-18] MEDS: THIAMINE HCL 100 MG TABLET PO SCH ×2 (08:46→17:03)
[2018-03-18] MEDS: MULTIVITAMINS WITH MINERALS, THERAPEUTIC TABLET PO SCH (08:46)
[2018-03-18] MEDS: CHOLECALCIFEROL (VIT D3) 1,000 UNITS TABLET PO SCH (08:47)
[2018-03-18] MEDS: FOLIC ACID 1 MG TABLET PO SCH (08:47)
[2018-03-18] MEDS: NALTREXONE HCL 50 MG TABLET PO SCH (08:47)
[2018-03-18] MEDS: LORazepam 2 MG TABLET PO PRN ×2 (09:57→17:27)
[2018-03-18] MEDS ORDERED: PALI156D IM (10:30)
[2018-03-18] MEDS ORDERED: DIVA500T52 PO (10:30)
[2018-03-18] MEDS ORDERED: NALT50TA PO (10:30)
[2018-03-18] MEDS ORDERED: DULO30CA2 PO (10:30)
[2018-03-18 14:12] VITALS: BP 164/102
[2018-03-18] MEDS: CloNIDine HCL 0.1 MG TABLET PO PRN (14:12)
[2018-03-18 15:08] VITALS: BP 133/78
[2018-03-18 16:37] VITALS: BP 130/82
[2018-03-18] MEDS: DIVALPROEX SODIUM 500 MG ER TABLET PO SCH (21:25)
[2018-03-18] MEDS: ZOLPIDEM TARTRATE 10 MG TABLET PO PRN (22:08)
[2018-03-19 05:34] VITALS: BP 136/80
[2018-03-19 08:36] VITALS: BP 164/113
[2018-03-19] MEDS: CloNIDine HCL 0.1 MG TABLET PO PRN (08:41)
[2018-03-19] MEDS: OMEPRAZOLE 20 MG CAPSULE PO SCH (08:42)
[2018-03-19] MEDS: THIAMINE HCL 100 MG TABLET PO SCH (08:45)
[2018-03-19] MEDS: MULTIVITAMINS WITH MINERALS, THERAPEUTIC TABLET PO SCH (08:45)
[2018-03-19] MEDS: DOCUSATE SODIUM 100 MG CAPSULE PO SCH (08:45)
[2018-03-19] MEDS: FOLIC ACID 1 MG TABLET PO SCH (08:45)
[2018-03-19] MEDS: CHOLECALCIFEROL (VIT D3) 1,000 UNITS TABLET PO SCH (08:45)
[2018-03-19] MEDS: DULoxetine HCL 30 MG CAPSULE PO SCH (08:46)
[2018-03-19] MEDS: NALTREXONE HCL 50 MG TABLET PO SCH (08:46)
[2018-03-19 09:40] VITALS: BP 138/88
[2018-03-19] MEDS ORDERED: DIVA500T52 PO (10:24)
[2018-03-19] MEDS ORDERED: DULO30CA2 PO (10:24)
[2018-03-19] MEDS ORDERED: PALI156D IM (10:24)
== END 2018-03-19 11:45 | disposition home or self-care (01) | DRG 750 ==
LOC: B3A 03:30
PROVIDERS: ADMIT Psychiatry & Neurology Psychiatry; ATTEND Psychiatry & Neurology Psychiatry
DX: F25.1 Schizoaffective disorder, depressive type (principal); R45.851 Suicidal ideations; Z59.0 Homelessness; I10 Essential (primary) hypertension; Z91.5 Personal history of self-harm; R45.87 Impulsiveness; F60.3 Borderline personality disorder; K59.00 Constipation, unspecified; K21.9 Gastro-esophageal reflux disease without esophagitis; E55.9 Vitamin D deficiency, unspecified; F15.90 Other stimulant use, unspecified, uncomplicated; B95.62 Methicillin resistant Staphylococcus aureus infection as the cause of diseases classified elsewhere; F12.90 Cannabis use, unspecified, uncomplicated; E78.5 Hyperlipidemia, unspecified
CPT/HCPCS: 87081

== ENCOUNTER 2018-05-01 21:47 | Emergency (ER) | payer MEDICAID, OTHER ==
[~2018-05-01] VITALS: Ht 157.5 cm; Wt 135.4 kg
[~2018-05-01 21:47] MED LIST changes: +CHOL200059 PO; -DSS100 PO; +DULO20CA30 PO; +FOLI1 PO; +MULT-1203 PO; -OMEP20 PO; +THIA100T67 PO; -VITAD1000 PO
[2018-05-02] MEDS ORDERED: ALBUTEROL SULFATE HFA 90 MCG/PUFF 8 GM INHALER IH ONE (01:30)
[2018-05-02] MEDS ORDERED: KETOROLAC TROMETHAMINE 60 MG/2 ML VIAL IM ONE (01:30)
[2018-05-02 01:40] VITALS: BP 149/86
[2018-05-03] MEDS ORDERED: QUET200T PO (12:55)
[2018-05-03] MEDS ORDERED: VENL-68 PO (12:55)
[2018-05-03] MEDS ORDERED: VENL50TA44 PO (12:55)
[2018-05-03] MEDS ORDERED: ALBU8HFA IH (12:55)
[2018-05-03] MEDS ORDERED: NALT50TA6 PO (12:55)
[2018-05-03] MEDS ORDERED: TRIH2TAB3 PO ×2 (12:55)
[2018-05-03] MEDS ORDERED: VITAD1000 PO (12:55)
== END 2018-05-02 01:45 | disposition home or self-care (01) ==
LOC: EMS 21:50
DX: M54.5 Low back pain (principal); G89.29 Other chronic pain; J45.909 Unspecified asthma, uncomplicated; F17.210 Nicotine dependence, cigarettes, uncomplicated; I10 Essential (primary) hypertension; F32.9 Major depressive disorder, single episode, unspecified; F20.9 Schizophrenia, unspecified; E66.01 Morbid (severe) obesity due to excess calories; Z68.43 Body mass index [BMI] 50.0-59.9, adult; Z79.899 Other long term (current) drug therapy; Z59.0 Homelessness
CPT/HCPCS: 96372; 99283; 99406; J1885; J3535

== ENCOUNTER 2018-05-02 20:53 | Inpatient (IN) | payer MEDICAID, OTHER ==
[~2018-05-02] VITALS: Ht 160 cm; Wt 135.9 kg
[2018-05-03] MEDS ORDERED: LORazepam 2 MG TABLET PO PRN (03:15)
[2018-05-03] MEDS ORDERED: ZOLPIDEM TARTRATE 10 MG TABLET PO PRN ×2 (03:15→19:15)
[2018-05-03] MEDS ORDERED: QUEtiapine FUMARATE 100 MG TABLET PO PRN (03:15)
[2018-05-03 04:10] VITALS: BP 120/78
[2018-05-03 08:20] VITALS: BP 129/73
[2018-05-03] MEDS ORDERED: QUET200T PO (12:55)
[2018-05-03] MEDS ORDERED: VENL50TA44 PO (12:55)
[2018-05-03] MEDS ORDERED: VITAD1000 PO (12:55)
[2018-05-03] MEDS ORDERED: ALBU8HFA IH (12:55)
[2018-05-03] MEDS ORDERED: TRIH2TAB3 PO ×2 (12:55)
[2018-05-03] MEDS ORDERED: NALT50TA6 PO (12:55)
[2018-05-03] MEDS ORDERED: VENL-68 PO (12:55)
[2018-05-03 16:40] VITALS: BP 139/63
[2018-05-03] MEDS: QUEtiapine FUMARATE 300 MG TABLET PO SCH (21:01)
[2018-05-04 06:55] VITALS: BP 149/82
[2018-05-04 08:11] VITALS: BP 155/88
[2018-05-04] MEDS: DULoxetine HCL 20 MG CAPSULE PO SCH (09:57)
[2018-05-04 10:05] VITALS: BP 142/70
[2018-05-04] MEDS: ACETAMINOPHEN 325 MG TABLET PO PRN (10:05)
[2018-05-04 14:13] VITALS: BP 157/93
[2018-05-04] MEDS: LISINOPRIL 20 MG TABLET PO SCH (15:20)
[2018-05-04] MEDS: CloNIDine HCL 0.1 MG TABLET PO SCH (16:59)
[2018-05-04] MEDS: QUEtiapine FUMARATE 300 MG TABLET PO SCH (21:00)
[2018-05-05 06:27] VITALS: BP 138/72
[2018-05-05] MEDS: CloNIDine HCL 0.1 MG TABLET PO SCH ×2 (08:10→17:05)
[2018-05-05] MEDS: DULoxetine HCL 20 MG CAPSULE PO SCH (08:10)
[2018-05-05] MEDS: LISINOPRIL 20 MG TABLET PO SCH (08:10)
[2018-05-05 08:15] VITALS: BP 118/69
[2018-05-05] MEDS: ACETAMINOPHEN 325 MG TABLET PO PRN (11:01)
[2018-05-05] MEDS ORDERED: MAG HYDROX/AL HYDROX/SIMETH ES 30 ML SUSPENSION UDCUP PO PRN (12:00)
[2018-05-05] MEDS ORDERED: LOPERAMIDE HCL 2 MG CAPSULE PO PRN (12:00)
[2018-05-05] MEDS ORDERED: HydrOXYzine PAMOATE 50 MG CAPSULE PO PRN (12:00)
[2018-05-05] MEDS ORDERED: ACETAMINOPHEN 325 MG TABLET PO PRN (12:00)
[2018-05-05] MEDS ORDERED: MAGNESIUM HYDROXIDE SUSPENSION 30 ML UDCUP PO PRN (12:00)
[2018-05-05] MEDS ORDERED: GuaiFENesin/D-METHORPHAN [SUGAR-FREE] 200-20MG/10 ML SYRUP UDCUP PO PRN (12:00)
[2018-05-05] MEDS ORDERED: PROMETHAZINE HCL 25 MG TABLET PO PRN (12:00)
[2018-05-05] MEDS ORDERED: OLANZapine 5 MG RAPDIS TABLET PO PRN (16:15)
[2018-05-05 17:02] VITALS: BP 132/87
[2018-05-05] MEDS: THIAMINE HCL 100 MG TABLET PO SCH (17:05)
[2018-05-05] MEDS ORDERED: OLANZapine 5 MG RAPDIS TABLET PO SCH (21:00)
[2018-05-05] MEDS: ZOLPIDEM TARTRATE 5 MG TABLET PO PRN (21:24)
[2018-05-06 06:25] VITALS: BP 115/76
[2018-05-06] MEDS: FOLIC ACID 1 MG TABLET PO SCH (09:34)
[2018-05-06] MEDS: LISINOPRIL 20 MG TABLET PO SCH (09:34)
[2018-05-06] MEDS: MULTIVITAMINS WITH MINERALS, THERAPEUTIC TABLET PO SCH (09:34)
[2018-05-06] MEDS: CloNIDine HCL 0.1 MG TABLET PO SCH ×2 (09:34→16:41)
[2018-05-06] MEDS: NALTREXONE HCL 50 MG TABLET PO SCH (09:34)
[2018-05-06] MEDS: DULoxetine HCL 20 MG CAPSULE PO SCH (09:35)
[2018-05-06] MEDS: THIAMINE HCL 100 MG TABLET PO SCH ×2 (09:37→16:41)
[2018-05-06 20:43] VITALS: BP 135/95
[2018-05-06] MEDS: ZOLPIDEM TARTRATE 5 MG TABLET PO PRN (20:48)
[2018-05-06] MEDS: OLANZapine 10 MG RAPDIS TABLET PO SCH (20:48)
[2018-05-07 07:01] VITALS: BP 125/84
[2018-05-07] MEDS: NALTREXONE HCL 50 MG TABLET PO SCH (09:00)
[2018-05-07] MEDS: THIAMINE HCL 100 MG TABLET PO SCH ×2 (09:00→16:54)
[2018-05-07] MEDS: DULoxetine HCL 20 MG CAPSULE PO SCH (09:00)
[2018-05-07] MEDS: FOLIC ACID 1 MG TABLET PO SCH (09:00)
[2018-05-07] MEDS: CloNIDine HCL 0.1 MG TABLET PO SCH ×2 (09:00→16:54)
[2018-05-07] MEDS: MULTIVITAMINS WITH MINERALS, THERAPEUTIC TABLET PO SCH (09:00)
[2018-05-07] MEDS: LISINOPRIL 20 MG TABLET PO SCH (09:00)
[2018-05-07 11:05] VITALS: BP 137/89
[2018-05-07 16:02] VITALS: BP 143/71
[2018-05-07] MEDS: OLANZapine 10 MG RAPDIS TABLET PO SCH (20:33)
[2018-05-07] MEDS: ZOLPIDEM TARTRATE 5 MG TABLET PO PRN (21:19)
[2018-05-08 06:00] VITALS: BP 140/76
[2018-05-08 08:41] VITALS: BP 135/74
[2018-05-08] MEDS: FOLIC ACID 1 MG TABLET PO SCH (10:07)
[2018-05-08] MEDS: THIAMINE HCL 100 MG TABLET PO SCH ×2 (10:07→16:46)
[2018-05-08] MEDS: LISINOPRIL 20 MG TABLET PO SCH (10:07)
[2018-05-08] MEDS: NALTREXONE HCL 50 MG TABLET PO SCH (10:08)
[2018-05-08] MEDS: CloNIDine HCL 0.1 MG TABLET PO SCH ×2 (10:08→16:45)
[2018-05-08] MEDS: MULTIVITAMINS WITH MINERALS, THERAPEUTIC TABLET PO SCH (10:08)
[2018-05-08] MEDS: DULoxetine HCL 60 MG CAPSULE PO SCH (10:08)
[2018-05-08 17:31] VITALS: BP 130/74
[2018-05-08] MEDS: OLANZapine 10 MG RAPDIS TABLET PO SCH (21:17)
[2018-05-08] MEDS: ZOLPIDEM TARTRATE 5 MG TABLET PO PRN (21:17)
[2018-05-09] MEDS: LISINOPRIL 20 MG TABLET PO SCH (08:21)
[2018-05-09] MEDS: DULoxetine HCL 60 MG CAPSULE PO SCH (08:21)
[2018-05-09] MEDS: CloNIDine HCL 0.1 MG TABLET PO SCH ×2 (08:21→17:08)
[2018-05-09] MEDS: MULTIVITAMINS WITH MINERALS, THERAPEUTIC TABLET PO SCH (08:21)
[2018-05-09] MEDS: FOLIC ACID 1 MG TABLET PO SCH (08:21)
[2018-05-09] MEDS: NALTREXONE HCL 50 MG TABLET PO SCH (08:21)
[2018-05-09] MEDS: THIAMINE HCL 100 MG TABLET PO SCH ×2 (08:21→17:07)
[2018-05-09 16:59] VITALS: BP 114/68
[2018-05-09] MEDS: LORazepam 2 MG TABLET PO PRN (17:08)
[2018-05-09] MEDS: OLANZapine 10 MG RAPDIS TABLET PO SCH (21:11)
[2018-05-09] MEDS: ZOLPIDEM TARTRATE 5 MG TABLET PO PRN (21:12)
[2018-05-10 06:35] VITALS: BP 117/74
[2018-05-10 08:44] VITALS: BP 112/60
[2018-05-10 09:44] VITALS: BP 128/79
[2018-05-10] MEDS: FOLIC ACID 1 MG TABLET PO SCH (09:44)
[2018-05-10] MEDS: DULoxetine HCL 60 MG CAPSULE PO SCH (09:44)
[2018-05-10] MEDS: MULTIVITAMINS WITH MINERALS, THERAPEUTIC TABLET PO SCH (09:44)
[2018-05-10] MEDS: THIAMINE HCL 100 MG TABLET PO SCH ×2 (09:44→16:56)
[2018-05-10] MEDS: CloNIDine HCL 0.1 MG TABLET PO SCH ×2 (09:44→16:56)
[2018-05-10] MEDS: LISINOPRIL 20 MG TABLET PO SCH (09:44)
[2018-05-10] MEDS: NALTREXONE HCL 50 MG TABLET PO SCH (09:44)
[2018-05-10 16:13] VITALS: BP 116/85
[2018-05-10] MEDS: OLANZapine 10 MG RAPDIS TABLET PO SCH (20:37)
[2018-05-10] MEDS: ZOLPIDEM TARTRATE 5 MG TABLET PO PRN (20:38)
[2018-05-11 07:07] VITALS: BP 120/88
[2018-05-11 08:32] VITALS: BP 118/69
[2018-05-11] MEDS: MULTIVITAMINS WITH MINERALS, THERAPEUTIC TABLET PO SCH (09:01)
[2018-05-11] MEDS: THIAMINE HCL 100 MG TABLET PO SCH ×2 (09:01→16:59)
[2018-05-11] MEDS: NALTREXONE HCL 50 MG TABLET PO SCH (09:01)
[2018-05-11] MEDS: TRIHEXYPHENIDYL HCL 5 MG TABLET PO SCH ×2 (09:02→16:59)
[2018-05-11] MEDS: FOLIC ACID 1 MG TABLET PO SCH (09:02)
[2018-05-11] MEDS: LISINOPRIL 20 MG TABLET PO SCH (09:02)
[2018-05-11] MEDS: CloNIDine HCL 0.1 MG TABLET PO SCH ×2 (09:02→16:59)
[2018-05-11] MEDS: DULoxetine HCL 60 MG CAPSULE PO SCH (09:02)
[2018-05-11] MEDS: LORazepam 2 MG TABLET PO PRN (18:24)
[2018-05-11] MEDS ORDERED: LORazepam 1 MG TABLET PO PRN (18:30)
[2018-05-11 19:00] VITALS: BP 140/76
[2018-05-11] MEDS: OLANZapine 10 MG RAPDIS TABLET PO SCH (20:17)
[2018-05-11] MEDS: ZOLPIDEM TARTRATE 5 MG TABLET PO PRN (21:07)
[2018-05-12 08:47] VITALS: BP 122/79
[2018-05-12] MEDS ORDERED: LISI-662 PO (08:49)
[2018-05-12] MEDS ORDERED: OLAN10TA6 PO (08:49)
[2018-05-12] MEDS ORDERED: TRIH5TAB2 PO (08:49)
[2018-05-12] MEDS ORDERED: DULO60CA44 PO (08:49)
[2018-05-12] MEDS ORDERED: CLON-570 PO (08:49)
== END 2018-05-12 09:45 | disposition home or self-care (01) | DRG 750 ==
LOC: B3A 05-03 03:20
PROVIDERS: ADMIT Psychiatry & Neurology Psychiatry; ATTEND Psychiatry & Neurology Psychiatry
DX: F25.0 Schizoaffective disorder, bipolar type (principal); R45.851 Suicidal ideations; E66.01 Morbid (severe) obesity due to excess calories; E78.5 Hyperlipidemia, unspecified; G47.00 Insomnia, unspecified; H54.62 Unqualified visual loss, left eye, normal vision right eye; H91.92 Unspecified hearing loss, left ear; I10 Essential (primary) hypertension; J44.9 Chronic obstructive pulmonary disease, unspecified; Z56.0 Unemployment, unspecified; M54.9 Dorsalgia, unspecified; K21.9 Gastro-esophageal reflux disease without esophagitis; Z68.43 Body mass index [BMI] 50.0-59.9, adult; Z59.0 Homelessness; Z91.19 Patient's noncompliance with other medical treatment and regimen

== ENCOUNTER 2018-05-25 12:40 | Emergency (ER) | payer MEDICAID, OTHER ==
[~2018-05-25] VITALS: Ht 160 cm; Wt 129.1 kg
[~2018-05-25 12:40] MED LIST changes: -CHOL200059 PO; +CLON-570 PO; -DULO20CA30 PO; +DULO60CA44 PO; -FOLI1 PO; +LISI-662 PO; -MULT-1203 PO; -NALT50TA PO; +NALT50TA6 PO; +OLAN10TA6 PO; -QUET200T29 PO; -THIA100T67 PO; +TRIH5TAB2 PO
[2018-05-25] MEDS ORDERED: ALBU8HFA IH (12:45)
[2018-05-25] MEDS ORDERED: IPRATROPIUM BROMIDE 0.5 MG/2.5 ML NEB SOLUTION NEB ONE (13:30)
[2018-05-25] MEDS ORDERED: ACETAMINOPHEN 500 MG TABLET PO ONE (13:30)
[2018-05-25] MEDS ORDERED: ALBUTEROL SULFATE 2.5 MG/0.5 ML NEB SOLUTION NEB ONE (13:30)
[2018-05-25] MEDS ORDERED: DiphenhydrAMINE HCL 50 MG/ML VIAL IVP ONE (13:30)
[2018-05-25 14:39] LABS: ANION GAP 6 mmol/L (8-16); CALCIUM, TOTAL 8.5 mg/dL (8.8-10.5); CARBON DIOXIDE 29 mmol/L (22-29); CHLORIDE 106 mmol/L (98-107); CREATININE 0.71 mg/dL (0.60-1.30); GLOMERULAR FILTR. RATE CALC > 60 mL/min (>60); GLUCOSE,RANDOM 98 mg/dL (70-110); POTASSIUM 3.6 mmol/L (3.5-5.1); SODIUM SERUM 141 mmol/L (136-145); UREA NITROGEN, BLOOD 15 mg/dL (7-18)
[2018-05-25 14:45] LABS: ALANINE AMINOTRANSFERASE 20 U/L (12-78); ALBUMIN 3.2 g/dL (3.4-5.0); ALKALINE PHOSPHATASE 94 U/L (46-116); ASPARTATE AMINOTRANSFERASE 19 U/L (15-37); BILIRUBIN,TOTAL 0.2 mg/dL (0.1-1.0); TOTAL PROTEIN, SERUM 7.5 g/dL (6.4-8.2)
[2018-05-25 14:53] LABS: EOSINOPHILS % (AUTO) 6.4 % (1.0-6.0); HEMATOCRIT 36.4 % (36-46); HEMOGLOBIN 11.7 g/dL (12.0-16.0); LYMPHOCYTES # (AUTO) 2.1 K/uL (1.0-4.8); LYMPHOCYTES % (AUTO) 32.8 % (22.0-44.0); MEAN CORPUSCULAR HEMOGLOBIN 27.5 pg (26.0-34.0); MEAN CORPUSCULAR HGB CONC 32.2 G/dL (31.0-37.0); MEAN CORPUSCULAR VOLUME 85 fL (80-100); MONOCYTES # (AUTO) 0.6 K/uL (0.1-1.0); MONOCYTES % (AUTO) 8.8 % (2.0-9.0); NEUTROPHILS # (AUTO) 3.3 K/uL (1.8-7.7); PLATELET COUNT (AUTO) 259 K/uL (150-450); RED BLOOD CELL COUNT(AUTO) 4.26 MIL/uL (4.00-5.20); RED CELL DISTRIBUTION WIDTH 15.1 % (11.5-14.5)
[2018-05-25 15:17] LABS: B-TYPE NATRIURETIC PEPTIDE 10 pg/mL (0-100)
[2018-05-25] MEDS ORDERED: IBUPROFEN 600 MG TABLET PO ONE (15:45)
[2018-05-25 15:54] VITALS: BP 142/80
== END 2018-05-25 16:06 | disposition home or self-care (01) ==
LOC: EMS 12:41
DX: J44.9 Chronic obstructive pulmonary disease, unspecified (principal); F25.9 Schizoaffective disorder, unspecified; R25.8 Other abnormal involuntary movements; M19.90 Unspecified osteoarthritis, unspecified site; J45.909 Unspecified asthma, uncomplicated; F32.9 Major depressive disorder, single episode, unspecified; I10 Essential (primary) hypertension; E66.9 Obesity, unspecified; F17.210 Nicotine dependence, cigarettes, uncomplicated; Z68.43 Body mass index [BMI] 50.0-59.9, adult; Z59.0 Homelessness; Z79.899 Other long term (current) drug therapy
CPT/HCPCS: 36415; 71045; 80053; 83880; 84484; 85025; 93005; 94640; 96374; 99285; 99406; J1200; J7613

== ENCOUNTER 2018-06-02 19:28 | Inpatient (IN) | payer MEDICAID, OTHER ==
[~2018-06-02] VITALS: Ht 160 cm; Wt 137.9 kg
[~2018-06-02 19:28] MED LIST changes: +ALBU8HFA IH
[2018-06-02 22:28] VITALS: BP 130/77
[2018-06-02] MEDS ORDERED: OLANZapine 5 MG RAPDIS TABLET PO PRN (22:30)
[2018-06-02] MEDS ORDERED: PNEUMOCOCCAL VACCINE POLYVALENT 0.5 ML VIAL [PPSV23] IM ONE (22:45)
[2018-06-03 00:05] VITALS: BP 140/89
[2018-06-03 08:00] VITALS: BP 149/83
[2018-06-03] MEDS: NALTREXONE HCL 50 MG TABLET PO SCH (08:36)
[2018-06-03] MEDS: TRIHEXYPHENIDYL HCL 5 MG TABLET PO SCH ×2 (08:37→16:19)
[2018-06-03] MEDS: DULoxetine HCL 20 MG CAPSULE PO SCH (08:37)
[2018-06-03] MEDS: CloNIDine HCL 0.1 MG TABLET PO SCH ×2 (09:29→16:19)
[2018-06-03] MEDS: LISINOPRIL 20 MG TABLET PO SCH (09:29)
[2018-06-03 12:19] LABS: GLUCOMETER DEV NAME(LOC) BV3S 2; GLUCOSE,POINT OF CARE 89 MG/DL (70-110)
[2018-06-03] MEDS ORDERED: PROMETHAZINE HCL 25 MG TABLET PO PRN (14:45)
[2018-06-03] MEDS ORDERED: LOPERAMIDE HCL 2 MG CAPSULE PO PRN (14:45)
[2018-06-03] MEDS ORDERED: HydrOXYzine PAMOATE 50 MG CAPSULE PO PRN (14:45)
[2018-06-03] MEDS ORDERED: MAG HYDROX/AL HYDROX/SIMETH ES 30 ML SUSPENSION UDCUP PO PRN (14:45)
[2018-06-03] MEDS ORDERED: MAGNESIUM HYDROXIDE SUSPENSION 30 ML UDCUP PO PRN (14:45)
[2018-06-03] MEDS ORDERED: GuaiFENesin/D-METHORPHAN [SUGAR-FREE] 200-20MG/10 ML SYRUP UDCUP PO PRN (14:45)
[2018-06-03] MEDS: THIAMINE HCL 100 MG TABLET PO SCH (16:19)
[2018-06-03 16:52] VITALS: BP 136/81
[2018-06-03] MEDS: ZOLPIDEM TARTRATE 10 MG TABLET PO PRN (20:40)
[2018-06-03] MEDS ORDERED: OLANZapine 5 MG RAPDIS TABLET PO SCH (21:00)
[2018-06-04] MEDS ORDERED: PNEUMOCOCCAL VACCINE POLYVALENT 0.5 ML VIAL [PPSV23] IM ONE (00:15)
[2018-06-04 00:56] VITALS: BP 130/79
[2018-06-04 08:19] VITALS: BP 145/106
[2018-06-04] MEDS: TRIHEXYPHENIDYL HCL 5 MG TABLET PO SCH ×2 (09:03→16:15)
[2018-06-04] MEDS: NALTREXONE HCL 50 MG TABLET PO SCH (09:03)
[2018-06-04] MEDS: LISINOPRIL 20 MG TABLET PO SCH (09:03)
[2018-06-04] MEDS: THIAMINE HCL 100 MG TABLET PO SCH ×2 (09:03→16:15)
[2018-06-04] MEDS: MULTIVITAMINS WITH MINERALS, THERAPEUTIC TABLET PO SCH (09:03)
[2018-06-04] MEDS: DULoxetine HCL 20 MG CAPSULE PO SCH (09:03)
[2018-06-04] MEDS: CloNIDine HCL 0.1 MG TABLET PO SCH ×2 (09:03→16:15)
[2018-06-04] MEDS: FOLIC ACID 1 MG TABLET PO SCH (09:04)
[2018-06-04 14:41] VITALS: BP 112/74
[2018-06-04 16:00] VITALS: BP 143/71
[2018-06-04 17:00] VITALS: BP 134/74
[2018-06-04 20:38] VITALS: BP 138/76
[2018-06-04] MEDS: ACETAMINOPHEN 325 MG TABLET PO PRN (20:39)
[2018-06-04] MEDS: OLANZapine 10 MG RAPDIS TABLET PO SCH (20:40)
[2018-06-04] MEDS: ZOLPIDEM TARTRATE 10 MG TABLET PO PRN (21:01)
[2018-06-05 06:07] VITALS: BP 131/72
[2018-06-05] MEDS: NALTREXONE HCL 50 MG TABLET PO SCH (08:16)
[2018-06-05] MEDS: MULTIVITAMINS WITH MINERALS, THERAPEUTIC TABLET PO SCH (08:17)
[2018-06-05] MEDS: FOLIC ACID 1 MG TABLET PO SCH (08:17)
[2018-06-05] MEDS: TRIHEXYPHENIDYL HCL 5 MG TABLET PO SCH ×2 (08:17→17:14)
[2018-06-05] MEDS: CloNIDine HCL 0.1 MG TABLET PO SCH ×2 (08:17→17:14)
[2018-06-05] MEDS: THIAMINE HCL 100 MG TABLET PO SCH ×2 (08:17→17:14)
[2018-06-05] MEDS: LISINOPRIL 20 MG TABLET PO SCH (08:17)
[2018-06-05 08:18] VITALS: BP 153/91
[2018-06-05] MEDS ORDERED: DULoxetine HCL 20 MG CAPSULE PO SCH (09:00)
[2018-06-05] MEDS: CHOLECALCIFEROL (VIT D3) 1,000 UNITS TABLET PO SCH (12:44)
[2018-06-05 16:47] VITALS: BP 100/81
[2018-06-05] MEDS: LORazepam 2 MG TABLET PO PRN (17:15)
[2018-06-05] MEDS: OLANZapine 10 MG RAPDIS TABLET PO SCH (20:30)
[2018-06-05] MEDS: ZOLPIDEM TARTRATE 10 MG TABLET PO PRN (21:36)
[2018-06-06] MEDS: ACETAMINOPHEN 325 MG TABLET PO PRN (06:38)
[2018-06-06 06:56] VITALS: BP 149/89
[2018-06-06 08:13] VITALS: BP 164/112
[2018-06-06] MEDS: NALTREXONE HCL 50 MG TABLET PO SCH (08:53)
[2018-06-06] MEDS: FOLIC ACID 1 MG TABLET PO SCH (08:53)
[2018-06-06] MEDS: THIAMINE HCL 100 MG TABLET PO SCH ×2 (08:53→16:50)
[2018-06-06] MEDS: LISINOPRIL 20 MG TABLET PO SCH (08:53)
[2018-06-06] MEDS: CloNIDine HCL 0.1 MG TABLET PO SCH ×2 (08:53→16:50)
[2018-06-06] MEDS: MULTIVITAMINS WITH MINERALS, THERAPEUTIC TABLET PO SCH (08:53)
[2018-06-06] MEDS: CHOLECALCIFEROL (VIT D3) 1,000 UNITS TABLET PO SCH (08:54)
[2018-06-06] MEDS: TRIHEXYPHENIDYL HCL 5 MG TABLET PO SCH ×2 (08:55→16:50)
[2018-06-06] MEDS ORDERED: DULoxetine HCL 60 MG CAPSULE PO SCH (09:00)
[2018-06-06 13:30] VITALS: BP 148/98
[2018-06-06] MEDS: LORazepam 2 MG TABLET PO PRN (16:50)
[2018-06-06] MEDS: OLANZapine 10 MG RAPDIS TABLET PO SCH (20:22)
[2018-06-06] MEDS: ZOLPIDEM TARTRATE 10 MG TABLET PO PRN (21:28)
[2018-06-07 06:38] VITALS: BP 138/93
[2018-06-07 08:11] VITALS: BP 158/90
[2018-06-07] MEDS: LISINOPRIL 20 MG TABLET PO SCH (09:19)
[2018-06-07] MEDS: CloNIDine HCL 0.1 MG TABLET PO SCH ×2 (09:20→16:56)
[2018-06-07] MEDS: MULTIVITAMINS WITH MINERALS, THERAPEUTIC TABLET PO SCH (09:20)
[2018-06-07] MEDS: DULoxetine HCL 30 MG CAPSULE PO SCH (09:20)
[2018-06-07] MEDS: FOLIC ACID 1 MG TABLET PO SCH (09:20)
[2018-06-07] MEDS: THIAMINE HCL 100 MG TABLET PO SCH ×2 (09:20→16:56)
[2018-06-07] MEDS: NALTREXONE HCL 50 MG TABLET PO SCH (09:20)
[2018-06-07] MEDS: CHOLECALCIFEROL (VIT D3) 1,000 UNITS TABLET PO SCH (09:20)
[2018-06-07] MEDS: LORazepam 2 MG TABLET PO PRN (09:21)
[2018-06-07] MEDS: TRIHEXYPHENIDYL HCL 5 MG TABLET PO SCH ×2 (09:21→16:56)
[2018-06-07 16:28] VITALS: BP 109/84
[2018-06-07] MEDS: OLANZapine 10 MG RAPDIS TABLET PO SCH (20:31)
[2018-06-07] MEDS: ZOLPIDEM TARTRATE 10 MG TABLET PO PRN (21:20)
[2018-06-08 05:22] VITALS: BP 134/86
[2018-06-08 08:19] VITALS: BP 145/74
[2018-06-08] MEDS: MULTIVITAMINS WITH MINERALS, THERAPEUTIC TABLET PO SCH (08:45)
[2018-06-08] MEDS: NALTREXONE HCL 50 MG TABLET PO SCH (08:45)
[2018-06-08] MEDS: THIAMINE HCL 100 MG TABLET PO SCH ×2 (08:46→16:53)
[2018-06-08] MEDS: DULoxetine HCL 30 MG CAPSULE PO SCH (08:46)
[2018-06-08] MEDS: FOLIC ACID 1 MG TABLET PO SCH (08:46)
[2018-06-08] MEDS: CHOLECALCIFEROL (VIT D3) 1,000 UNITS TABLET PO SCH (08:46)
[2018-06-08] MEDS: TRIHEXYPHENIDYL HCL 5 MG TABLET PO SCH ×2 (08:46→16:53)
[2018-06-08] MEDS: LISINOPRIL 20 MG TABLET PO SCH (08:46)
[2018-06-08] MEDS: CloNIDine HCL 0.1 MG TABLET PO SCH ×2 (08:46→16:53)
[2018-06-08] MEDS: GuaiFENesin/D-METHORPHAN [SUGAR-FREE] 200-20MG/10 ML SYRUP UDCUP PO SCH ×3 (09:02→16:53)
[2018-06-08 16:21] VITALS: BP 122/80
[2018-06-08] MEDS: OLANZapine 10 MG RAPDIS TABLET PO SCH (20:23)
[2018-06-08] MEDS: ZOLPIDEM TARTRATE 10 MG TABLET PO PRN (21:18)
[2018-06-08] MEDS: ACETAMINOPHEN 325 MG TABLET PO PRN (21:19)
[2018-06-09 06:13] VITALS: BP 133/66
[2018-06-09 08:08] VITALS: BP 115/71
[2018-06-09] MEDS: MULTIVITAMINS WITH MINERALS, THERAPEUTIC TABLET PO SCH (10:06)
[2018-06-09] MEDS: LISINOPRIL 20 MG TABLET PO SCH (10:06)
[2018-06-09] MEDS: TRIHEXYPHENIDYL HCL 5 MG TABLET PO SCH ×2 (10:06→17:03)
[2018-06-09] MEDS: CloNIDine HCL 0.1 MG TABLET PO SCH ×2 (10:06→17:21)
[2018-06-09] MEDS: FOLIC ACID 1 MG TABLET PO SCH (10:07)
[2018-06-09] MEDS: NALTREXONE HCL 50 MG TABLET PO SCH (10:07)
[2018-06-09] MEDS: THIAMINE HCL 100 MG TABLET PO SCH ×2 (10:07→17:04)
[2018-06-09] MEDS: CHOLECALCIFEROL (VIT D3) 1,000 UNITS TABLET PO SCH (10:07)
[2018-06-09] MEDS: GuaiFENesin/D-METHORPHAN [SUGAR-FREE] 200-20MG/10 ML SYRUP UDCUP PO SCH ×3 (10:07→17:04)
[2018-06-09] MEDS: DULoxetine HCL 30 MG CAPSULE PO SCH (10:07)
[2018-06-09 17:15] VITALS: BP 122/70
[2018-06-09] MEDS: OLANZapine 10 MG RAPDIS TABLET PO SCH (20:07)
[2018-06-09] MEDS: ACETAMINOPHEN 325 MG TABLET PO PRN (21:03)
[2018-06-09] MEDS: ZOLPIDEM TARTRATE 10 MG TABLET PO PRN (21:04)
[2018-06-10 05:42] VITALS: BP 135/79
[2018-06-10 08:29] VITALS: BP 133/69
[2018-06-10] MEDS: GuaiFENesin/D-METHORPHAN [SUGAR-FREE] 200-20MG/10 ML SYRUP UDCUP PO SCH ×3 (08:55→16:35)
[2018-06-10] MEDS: MULTIVITAMINS WITH MINERALS, THERAPEUTIC TABLET PO SCH (08:55)
[2018-06-10] MEDS: CloNIDine HCL 0.1 MG TABLET PO SCH ×2 (08:55→16:34)
[2018-06-10] MEDS: NALTREXONE HCL 50 MG TABLET PO SCH (08:55)
[2018-06-10] MEDS: TRIHEXYPHENIDYL HCL 5 MG TABLET PO SCH ×2 (08:55→16:34)
[2018-06-10] MEDS: DULoxetine HCL 60 MG CAPSULE PO SCH (08:55)
[2018-06-10] MEDS: FOLIC ACID 1 MG TABLET PO SCH (08:55)
[2018-06-10] MEDS: CHOLECALCIFEROL (VIT D3) 1,000 UNITS TABLET PO SCH (08:55)
[2018-06-10] MEDS: THIAMINE HCL 100 MG TABLET PO SCH ×2 (08:55→16:34)
[2018-06-10] MEDS: LISINOPRIL 20 MG TABLET PO SCH (08:55)
[2018-06-10 16:22] VITALS: BP 134/71
[2018-06-10] MEDS: ACETAMINOPHEN 325 MG TABLET PO PRN (20:29)
[2018-06-10] MEDS: ZOLPIDEM TARTRATE 10 MG TABLET PO PRN (20:29)
[2018-06-10] MEDS: OLANZapine 10 MG RAPDIS TABLET PO SCH (20:29)
[2018-06-11 06:10] VITALS: BP 132/79
[2018-06-11 08:32] VITALS: BP 120/57
[2018-06-11] MEDS: TRIHEXYPHENIDYL HCL 5 MG TABLET PO SCH ×2 (08:54→16:52)
[2018-06-11] MEDS: FOLIC ACID 1 MG TABLET PO SCH (08:54)
[2018-06-11] MEDS: GuaiFENesin/D-METHORPHAN [SUGAR-FREE] 200-20MG/10 ML SYRUP UDCUP PO SCH ×3 (08:54→16:53)
[2018-06-11] MEDS: CHOLECALCIFEROL (VIT D3) 1,000 UNITS TABLET PO SCH (08:54)
[2018-06-11] MEDS: THIAMINE HCL 100 MG TABLET PO SCH ×2 (08:54→16:52)
[2018-06-11] MEDS: LISINOPRIL 20 MG TABLET PO SCH (08:54)
[2018-06-11] MEDS: CloNIDine HCL 0.1 MG TABLET PO SCH ×2 (08:54→16:52)
[2018-06-11] MEDS: MULTIVITAMINS WITH MINERALS, THERAPEUTIC TABLET PO SCH (08:55)
[2018-06-11] MEDS: DULoxetine HCL 60 MG CAPSULE PO SCH (08:55)
[2018-06-11] MEDS: NALTREXONE HCL 50 MG TABLET PO SCH (08:55)
[2018-06-11 16:14] VITALS: BP 140/78
[2018-06-11] MEDS: OLANZapine 10 MG RAPDIS TABLET PO SCH (20:13)
[2018-06-11] MEDS: ZOLPIDEM TARTRATE 10 MG TABLET PO PRN (20:24)
[2018-06-12 03:09] VITALS: BP 140/85
[2018-06-12] MEDS: MULTIVITAMINS WITH MINERALS, THERAPEUTIC TABLET PO SCH (08:09)
[2018-06-12] MEDS: NALTREXONE HCL 50 MG TABLET PO SCH (08:10)
[2018-06-12] MEDS: DULoxetine HCL 60 MG CAPSULE PO SCH (08:10)
[2018-06-12] MEDS: LISINOPRIL 20 MG TABLET PO SCH (08:10)
[2018-06-12] MEDS: THIAMINE HCL 100 MG TABLET PO SCH (08:10)
[2018-06-12] MEDS: CloNIDine HCL 0.1 MG TABLET PO SCH (08:10)
[2018-06-12] MEDS: TRIHEXYPHENIDYL HCL 5 MG TABLET PO SCH (08:10)
[2018-06-12] MEDS: FOLIC ACID 1 MG TABLET PO SCH (08:10)
[2018-06-12] MEDS: CHOLECALCIFEROL (VIT D3) 1,000 UNITS TABLET PO SCH (08:10)
[2018-06-12] MEDS: GuaiFENesin/D-METHORPHAN [SUGAR-FREE] 200-20MG/10 ML SYRUP UDCUP PO SCH (08:11)
[2018-06-12 08:22] VITALS: BP 128/54
[2018-06-12] MEDS ORDERED: VITAD1000 PO (10:58)
[2018-06-12] MEDS ORDERED: DULO60CA44 PO (11:35)
== END 2018-06-12 13:20 | disposition home or self-care (01) | DRG 750 ==
LOC: B3A 22:34 → EDSTATUS 22:48
PROVIDERS: ADMIT Psychiatry & Neurology Psychiatry; ATTEND Psychiatry & Neurology Psychiatry
PROC: 3E02340 Introduction of Influenza Vaccine into Muscle, Percutaneous Approach (ICD-10-PCS; principal; 2018-06-04)
PROC: 3E0234Z Introduction of Serum, Toxoid and Vaccine into Muscle, Percutaneous Approach (ICD-10-PCS; 2018-06-04)
DX: F25.0 Schizoaffective disorder, bipolar type (principal); R45.851 Suicidal ideations; Z68.43 Body mass index [BMI] 50.0-59.9, adult; E11.9 Type 2 diabetes mellitus without complications; G47.00 Insomnia, unspecified; F60.0 Paranoid personality disorder; F15.90 Other stimulant use, unspecified, uncomplicated; F12.90 Cannabis use, unspecified, uncomplicated; E55.9 Vitamin D deficiency, unspecified; R03.0 Elevated blood-pressure reading, without diagnosis of hypertension; K21.9 Gastro-esophageal reflux disease without esophagitis; J44.9 Chronic obstructive pulmonary disease, unspecified; H54.40 Blindness, one eye, unspecified eye; H91.92 Unspecified hearing loss, left ear; E66.3 Overweight; Z59.0 Homelessness; Z91.19 Patient's noncompliance with other medical treatment and regimen; Z23 Encounter for immunization
CPT/HCPCS: 87081; 90686; 90732

== ENCOUNTER 2018-09-20 14:18 | Emergency (ER) | payer MEDICAID, OTHER ==
[~2018-09-20] VITALS: Ht 157.5 cm; Wt 131.8 kg
[~2018-09-20 14:18] MED LIST changes: -ALBU8HFA IH; -DULO60CA44 PO; -NALT50TA6 PO; +VITAD1000 PO
[2018-09-20] MEDS ORDERED: KETOROLAC TROMETHAMINE 60 MG/2 ML VIAL IM ONE (16:00)
[2018-09-20 16:05] VITALS: BP 110/62
== END 2018-09-20 16:39 | disposition home or self-care (01) ==
LOC: EMS 14:19
DX: G89.29 Other chronic pain (principal); M54.5 Low back pain; I10 Essential (primary) hypertension; J44.9 Chronic obstructive pulmonary disease, unspecified; F32.9 Major depressive disorder, single episode, unspecified; F20.9 Schizophrenia, unspecified; F17.210 Nicotine dependence, cigarettes, uncomplicated; Z59.0 Homelessness; Z79.899 Other long term (current) drug therapy
CPT/HCPCS: 96372; 99283; J1885

== ENCOUNTER 2018-09-29 17:50 | Emergency (ER) | payer OTHER ==
[~2018-09-29] VITALS: Ht 157.5 cm; Wt 13.2 kg
[2018-09-29 21:10] VITALS: BP 125/79
[2018-09-29] MEDS ORDERED: KETOROLAC TROMETHAMINE 60 MG/2 ML VIAL IM ONE (21:15)
== END 2018-09-29 22:29 | disposition home or self-care (01) ==
LOC: EMS 17:52
DX: G89.29 Other chronic pain (principal); M54.5 Low back pain; F20.9 Schizophrenia, unspecified; F17.210 Nicotine dependence, cigarettes, uncomplicated; M19.90 Unspecified osteoarthritis, unspecified site; J45.909 Unspecified asthma, uncomplicated; F32.9 Major depressive disorder, single episode, unspecified; I10 Essential (primary) hypertension; Z59.0 Homelessness; Z79.899 Other long term (current) drug therapy
CPT/HCPCS: 96372; 99283; 99406; J1885

== ENCOUNTER 2019-03-26 08:51 | Inpatient (IN) | payer MEDICAID ==
[~2019-03-26] VITALS: Ht 154.9 cm; Wt 148.3 kg
[2019-03-26 08:20] VITALS: BP 143/95
[~2019-03-26 08:51] MED LIST changes: +DULO60CA44 PO; +GABA-533 PO; +NALT50TA PO; +NALT50TA6 PO; +OLAN10TA22 PO; -TRIH5TAB2 PO; -VITAD1000 PO
[2019-03-26] MEDS ORDERED: QUEtiapine FUMARATE 100 MG TABLET PO PRN (09:00)
[2019-03-26] MEDS: LORazepam 2 MG TABLET PO PRN ×2 (10:50→17:09)
[2019-03-26 11:00] VITALS: BP 170/107
[2019-03-26] MEDS ORDERED: NICOTINE 14 MG/24 HOUR PATCH TD PRN (11:00)
[2019-03-26] MEDS ORDERED: ALBUTEROL SULFATE HFA 90 MCG/PUFF 8 GM INHALER IH PRN (11:00)
[2019-03-26] MEDS ORDERED: IBUPROFEN 400 MG TABLET PO PRN (11:00)
[2019-03-26] MEDS ORDERED: LOPERAMIDE HCL 2 MG CAPSULE PO PRN (11:00)
[2019-03-26] MEDS ORDERED: MAG HYDROX/AL HYDROX/SIMETH ES 30 ML SUSPENSION UDCUP PO PRN (11:00)
[2019-03-26] MEDS ORDERED: ONDANSETRON HCL 4 MG TABLET PO PRN (11:00)
[2019-03-26] MEDS ORDERED: PETROLATUM,WHITE 28 GM JELLY TP PRN (11:00)
[2019-03-26] MEDS ORDERED: CloNIDine HCL 0.1 MG TABLET PO PRN (11:00)
[2019-03-26] MEDS ORDERED: MAGNESIUM HYDROXIDE SUSPENSION 30 ML UDCUP PO PRN (11:00)
[2019-03-26] MEDS ORDERED: ACETAMINOPHEN 325 MG TABLET PO PRN (11:00)
[2019-03-26] MEDS ORDERED: DOCUSATE SODIUM 100 MG CAPSULE PO PRN (11:00)
[2019-03-26] MEDS ORDERED: GuaiFENesin/D-METHORPHAN [SUGAR-FREE] 200-20MG/10 ML SYRUP UDCUP PO PRN (11:00)
[2019-03-26] MEDS ORDERED: FUROSEMIDE 20 MG TABLET PO SCH (11:30)
[2019-03-26 12:00] VITALS: BP 148/76
[2019-03-26] MEDS: GABAPENTIN 400 MG CAPSULE PO SCH ×3 (12:10→21:01)
[2019-03-26] MEDS: LISINOPRIL 20 MG TABLET PO SCH (12:11)
[2019-03-26] MEDS: DULoxetine HCL 20 MG CAPSULE PO SCH (12:11)
[2019-03-26] MEDS: NALTREXONE HCL 50 MG TABLET PO SCH (12:14)
[2019-03-26] MEDS ORDERED: -PHARMACY VACCINE NOTE- MISC ONE (13:15)
[2019-03-26 13:58] VITALS: BP 108/74
[2019-03-26 16:00] VITALS: BP 113/62
[2019-03-26] MEDS: OLANZapine 10 MG RAPDIS TABLET PO SCH (21:01)
[2019-03-27 05:39] VITALS: BP 125/70
[2019-03-27 08:38] VITALS: BP 121/60
[2019-03-27] MEDS: LISINOPRIL 20 MG TABLET PO SCH (08:44)
[2019-03-27] MEDS: GABAPENTIN 400 MG CAPSULE PO SCH ×4 (08:44→20:20)
[2019-03-27] MEDS: DULoxetine HCL 20 MG CAPSULE PO SCH (08:44)
[2019-03-27] MEDS: CloNIDine HCL 0.1 MG TABLET PO SCH (08:44)
[2019-03-27] MEDS: NALTREXONE HCL 50 MG TABLET PO SCH (08:44)
[2019-03-27 16:02] VITALS: BP 135/63
[2019-03-27] MEDS: OLANZapine 10 MG RAPDIS TABLET PO SCH (20:20)
[2019-03-27] MEDS: ZOLPIDEM TARTRATE 10 MG TABLET PO PRN (20:43)
[2019-03-27] MEDS: LORazepam 2 MG TABLET PO PRN (20:43)
[2019-03-28 06:14] VITALS: BP 128/70
[2019-03-28 08:02] VITALS: BP 124/72
[2019-03-28] MEDS: LISINOPRIL 20 MG TABLET PO SCH (08:08)
[2019-03-28] MEDS: NALTREXONE HCL 50 MG TABLET PO SCH (08:08)
[2019-03-28] MEDS: DULoxetine HCL 20 MG CAPSULE PO SCH (08:08)
[2019-03-28] MEDS: GABAPENTIN 400 MG CAPSULE PO SCH ×4 (08:08→20:19)
[2019-03-28] MEDS: CloNIDine HCL 0.1 MG TABLET PO SCH (08:08)
[2019-03-28 16:08] VITALS: BP 124/98
[2019-03-28] MEDS: ZOLPIDEM TARTRATE 10 MG TABLET PO PRN (20:19)
[2019-03-28] MEDS: OLANZapine 10 MG RAPDIS TABLET PO SCH (20:19)
[2019-03-28] MEDS: LORazepam 2 MG TABLET PO PRN (20:19)
[2019-03-29 04:32] VITALS: BP 127/80
[2019-03-29 08:48] VITALS: BP 147/94
[2019-03-29] MEDS: CloNIDine HCL 0.1 MG TABLET PO SCH (08:49)
[2019-03-29] MEDS: DULoxetine HCL 20 MG CAPSULE PO SCH (08:49)
[2019-03-29] MEDS: LISINOPRIL 20 MG TABLET PO SCH (08:49)
[2019-03-29] MEDS: NALTREXONE HCL 50 MG TABLET PO SCH (08:49)
[2019-03-29] MEDS: GABAPENTIN 400 MG CAPSULE PO SCH ×4 (08:49→20:02)
[2019-03-29 10:05] VITALS: BP 142/71
[2019-03-29 16:00] VITALS: BP 122/81
[2019-03-29] MEDS: OLANZapine 10 MG RAPDIS TABLET PO SCH (20:02)
[2019-03-29] MEDS: LORazepam 2 MG TABLET PO PRN (20:02)
[2019-03-29] MEDS: ZOLPIDEM TARTRATE 10 MG TABLET PO PRN (21:58)
[2019-03-30 06:17] VITALS: BP 125/79
[2019-03-30 08:24] VITALS: BP 158/100
[2019-03-30] MEDS: DULoxetine HCL 20 MG CAPSULE PO SCH (09:01)
[2019-03-30] MEDS: NALTREXONE HCL 50 MG TABLET PO SCH (09:02)
[2019-03-30] MEDS: LISINOPRIL 20 MG TABLET PO SCH (09:02)
[2019-03-30] MEDS: CloNIDine HCL 0.1 MG TABLET PO SCH (09:02)
[2019-03-30] MEDS: GABAPENTIN 400 MG CAPSULE PO SCH ×4 (09:02→20:08)
[2019-03-30] MEDS: LORazepam 2 MG TABLET PO PRN ×2 (09:02→19:46)
[2019-03-30] MEDS ORDERED: LORazepam 2 MG/ML VIAL IM ONE (10:45)
[2019-03-30] MEDS ORDERED: HALOPERIDOL LACTATE 5 MG/ML VIAL IM ONE (10:45)
[2019-03-30] MEDS ORDERED: DiphenhydrAMINE HCL 50 MG/ML VIAL IM ONE (10:45)
[2019-03-30 16:25] VITALS: BP 140/82
[2019-03-30] MEDS: OLANZapine 10 MG RAPDIS TABLET PO SCH (20:08)
[2019-03-30] MEDS: ZOLPIDEM TARTRATE 10 MG TABLET PO PRN (20:58)
[2019-03-31 06:07] VITALS: BP 138/80
[2019-03-31 08:07] VITALS: BP 123/70
[2019-03-31] MEDS: NALTREXONE HCL 50 MG TABLET PO SCH (08:50)
[2019-03-31] MEDS: CloNIDine HCL 0.1 MG TABLET PO SCH (08:50)
[2019-03-31] MEDS: GABAPENTIN 400 MG CAPSULE PO SCH ×4 (08:51→20:02)
[2019-03-31] MEDS: LISINOPRIL 20 MG TABLET PO SCH (08:51)
[2019-03-31] MEDS: DULoxetine HCL 20 MG CAPSULE PO SCH (08:51)
[2019-03-31 16:11] VITALS: BP 137/99
[2019-03-31] MEDS: OLANZapine 10 MG RAPDIS TABLET PO SCH (20:02)
[2019-03-31] MEDS: LORazepam 2 MG TABLET PO PRN (20:33)
[2019-03-31] MEDS: ZOLPIDEM TARTRATE 10 MG TABLET PO PRN (20:33)
[2019-04-01 06:31] VITALS: BP 139/82
[2019-04-01] MEDS: GABAPENTIN 400 MG CAPSULE PO SCH ×4 (08:15→20:30)
[2019-04-01] MEDS: LISINOPRIL 20 MG TABLET PO SCH (08:15)
[2019-04-01] MEDS: NALTREXONE HCL 50 MG TABLET PO SCH (08:15)
[2019-04-01] MEDS: CloNIDine HCL 0.1 MG TABLET PO SCH (08:15)
[2019-04-01] MEDS: DULoxetine HCL 20 MG CAPSULE PO SCH (08:15)
[2019-04-01 08:27] VITALS: BP 146/87
[2019-04-01] MEDS: LORazepam 2 MG TABLET PO PRN (16:17)
[2019-04-01 16:19] VITALS: BP 103/74
[2019-04-01] MEDS: OLANZapine 10 MG RAPDIS TABLET PO SCH (20:30)
[2019-04-02 06:48] VITALS: BP 127/80
[2019-04-02] MEDS: DULoxetine HCL 20 MG CAPSULE PO SCH (08:20)
[2019-04-02] MEDS: GABAPENTIN 400 MG CAPSULE PO SCH ×4 (08:20→20:08)
[2019-04-02] MEDS: CloNIDine HCL 0.1 MG TABLET PO SCH (08:20)
[2019-04-02] MEDS: LISINOPRIL 20 MG TABLET PO SCH (08:21)
[2019-04-02] MEDS: NALTREXONE HCL 50 MG TABLET PO SCH (08:21)
[2019-04-02 08:47] VITALS: BP 120/93
[2019-04-02 16:02] VITALS: BP 112/59
[2019-04-02] MEDS: LORazepam 2 MG TABLET PO PRN (20:08)
[2019-04-02] MEDS: OLANZapine 10 MG RAPDIS TABLET PO SCH (20:09)
[2019-04-02] MEDS: ZOLPIDEM TARTRATE 10 MG TABLET PO PRN (20:55)
[2019-04-03 05:46] VITALS: BP 128/77
[2019-04-03 08:02] VITALS: BP 126/65
[2019-04-03] MEDS: NALTREXONE HCL 50 MG TABLET PO SCH (08:07)
[2019-04-03] MEDS: GABAPENTIN 400 MG CAPSULE PO SCH ×4 (08:08→20:07)
[2019-04-03] MEDS: DULoxetine HCL 20 MG CAPSULE PO SCH (08:08)
[2019-04-03] MEDS: LISINOPRIL 20 MG TABLET PO SCH (08:08)
[2019-04-03] MEDS: CloNIDine HCL 0.1 MG TABLET PO SCH (08:08)
[2019-04-03 16:05] VITALS: BP 132/63
[2019-04-03] MEDS: OLANZapine 10 MG RAPDIS TABLET PO SCH (20:07)
[2019-04-03] MEDS: LORazepam 2 MG TABLET PO PRN (20:07)
[2019-04-03] MEDS: ZOLPIDEM TARTRATE 10 MG TABLET PO PRN (21:09)
[2019-04-04 06:19] VITALS: BP 120/64
[2019-04-04 08:13] VITALS: BP 133/63
[2019-04-04] MEDS: GABAPENTIN 400 MG CAPSULE PO SCH ×4 (09:38→21:25)
[2019-04-04] MEDS: CloNIDine HCL 0.1 MG TABLET PO SCH (09:38)
[2019-04-04] MEDS: DULoxetine HCL 20 MG CAPSULE PO SCH (09:39)
[2019-04-04] MEDS: NALTREXONE HCL 50 MG TABLET PO SCH (09:39)
[2019-04-04] MEDS: LISINOPRIL 20 MG TABLET PO SCH (09:39)
[2019-04-04 16:07] VITALS: BP 117/71
[2019-04-04] MEDS: LORazepam 2 MG TABLET PO PRN (19:59)
[2019-04-04] MEDS: OLANZapine 10 MG RAPDIS TABLET PO SCH (21:25)
[2019-04-04] MEDS: ZOLPIDEM TARTRATE 10 MG TABLET PO PRN (21:49)
[2019-04-05 08:05] VITALS: BP 133/78
[2019-04-05] MEDS: NALTREXONE HCL 50 MG TABLET PO SCH (08:41)
[2019-04-05] MEDS: GABAPENTIN 400 MG CAPSULE PO SCH ×4 (08:41→20:02)
[2019-04-05] MEDS: CloNIDine HCL 0.1 MG TABLET PO SCH (08:41)
[2019-04-05] MEDS: LISINOPRIL 20 MG TABLET PO SCH (08:41)
[2019-04-05] MEDS: DULoxetine HCL 20 MG CAPSULE PO SCH (08:41)
[2019-04-05 16:18] VITALS: BP 121/72
[2019-04-05] MEDS: LORazepam 2 MG TABLET PO PRN (19:59)
[2019-04-05] MEDS: OLANZapine 10 MG RAPDIS TABLET PO SCH (20:02)
[2019-04-05] MEDS: ZOLPIDEM TARTRATE 10 MG TABLET PO PRN (21:05)
[2019-04-06 05:26] VITALS: BP 127/79
[2019-04-06 08:06] VITALS: BP 133/74
[2019-04-06] MEDS: DULoxetine HCL 20 MG CAPSULE PO SCH (08:14)
[2019-04-06] MEDS: GABAPENTIN 400 MG CAPSULE PO SCH ×4 (08:15→20:07)
[2019-04-06] MEDS: CloNIDine HCL 0.1 MG TABLET PO SCH (08:15)
[2019-04-06] MEDS: LISINOPRIL 20 MG TABLET PO SCH (08:15)
[2019-04-06] MEDS: NALTREXONE HCL 50 MG TABLET PO SCH (08:15)
[2019-04-06 16:03] VITALS: BP 130/68
[2019-04-06] MEDS: LORazepam 2 MG TABLET PO PRN (17:01)
[2019-04-06] MEDS: OLANZapine 10 MG RAPDIS TABLET PO SCH (20:07)
[2019-04-06] MEDS: ZOLPIDEM TARTRATE 10 MG TABLET PO PRN (20:51)
[2019-04-07 02:00] VITALS: BP 128/78
[2019-04-07 08:10] VITALS: BP 134/91
[2019-04-07] MEDS: DULoxetine HCL 20 MG CAPSULE PO SCH (08:29)
[2019-04-07] MEDS: LISINOPRIL 20 MG TABLET PO SCH (08:29)
[2019-04-07] MEDS: NALTREXONE HCL 50 MG TABLET PO SCH (08:29)
[2019-04-07] MEDS: CloNIDine HCL 0.1 MG TABLET PO SCH (08:29)
[2019-04-07] MEDS: GABAPENTIN 400 MG CAPSULE PO SCH ×4 (08:29→20:16)
[2019-04-07 16:02] VITALS: BP 118/65
[2019-04-07] MEDS: LORazepam 2 MG TABLET PO PRN ×2 (16:13→20:16)
[2019-04-07] MEDS: OLANZapine 10 MG RAPDIS TABLET PO SCH (20:16)
[2019-04-07] MEDS: ZOLPIDEM TARTRATE 10 MG TABLET PO PRN (20:32)
[2019-04-08 06:42] VITALS: BP 143/84
[2019-04-08 08:03] VITALS: BP 115/67
[2019-04-08] MEDS: NALTREXONE HCL 50 MG TABLET PO SCH (08:46)
[2019-04-08] MEDS: GABAPENTIN 400 MG CAPSULE PO SCH ×4 (08:46→20:11)
[2019-04-08] MEDS: DULoxetine HCL 20 MG CAPSULE PO SCH (08:46)
[2019-04-08] MEDS: LISINOPRIL 20 MG TABLET PO SCH (08:47)
[2019-04-08] MEDS: CloNIDine HCL 0.1 MG TABLET PO SCH (08:47)
[2019-04-08 16:04] VITALS: BP 111/78
[2019-04-08] MEDS: LORazepam 2 MG TABLET PO PRN (18:04)
[2019-04-08] MEDS: OLANZapine 10 MG RAPDIS TABLET PO SCH (20:10)
[2019-04-08] MEDS: ZOLPIDEM TARTRATE 10 MG TABLET PO PRN (20:11)
[2019-04-09 03:51] VITALS: BP 124/87
[2019-04-09] MEDS: DULoxetine HCL 20 MG CAPSULE PO SCH (08:13)
[2019-04-09] MEDS: NALTREXONE HCL 50 MG TABLET PO SCH (08:13)
[2019-04-09] MEDS: GABAPENTIN 400 MG CAPSULE PO SCH ×4 (08:13→21:02)
[2019-04-09] MEDS: LISINOPRIL 20 MG TABLET PO SCH (08:13)
[2019-04-09] MEDS: CloNIDine HCL 0.1 MG TABLET PO SCH (08:13)
[2019-04-09 08:30] VITALS: BP 152/83
[2019-04-09 13:36] VITALS: BP 129/87
[2019-04-09 16:12] VITALS: BP 146/84
[2019-04-09] MEDS: LORazepam 2 MG TABLET PO PRN (19:57)
[2019-04-09] MEDS: OLANZapine 10 MG RAPDIS TABLET PO SCH (21:02)
[2019-04-09 21:13] VITALS: BP 142/82
[2019-04-09] MEDS: ZOLPIDEM TARTRATE 10 MG TABLET PO PRN (21:25)
[2019-04-10 06:29] VITALS: BP 134/85
[2019-04-10] MEDS: GABAPENTIN 400 MG CAPSULE PO SCH ×2 (08:04→12:24)
[2019-04-10] MEDS: NALTREXONE HCL 50 MG TABLET PO SCH (08:04)
[2019-04-10] MEDS: DULoxetine HCL 20 MG CAPSULE PO SCH (08:04)
[2019-04-10] MEDS: CloNIDine HCL 0.1 MG TABLET PO SCH (08:05)
[2019-04-10] MEDS: LISINOPRIL 20 MG TABLET PO SCH (08:05)
[2019-04-10 08:07] VITALS: BP 158/69
[2019-04-10] MEDS ORDERED: CLON-570 PO (08:52)
[2019-04-10] MEDS ORDERED: DULO20CA30 PO (08:52)
[2019-04-10 13:02] VITALS: BP 123/73
== END 2019-04-10 13:25 | disposition home or self-care (01) | DRG 750 ==
LOC: B3A 09:15
PROVIDERS: ADMIT Psychiatry & Neurology Child & Adolescent Psychiatry; ATTEND Psychiatry & Neurology Child & Adolescent Psychiatry
DX: F25.1 Schizoaffective disorder, depressive type (principal); E66.01 Morbid (severe) obesity due to excess calories; R45.851 Suicidal ideations; F17.200 Nicotine dependence, unspecified, uncomplicated; G40.909 Epilepsy, unspecified, not intractable, without status epilepticus; I10 Essential (primary) hypertension; J44.9 Chronic obstructive pulmonary disease, unspecified; K21.9 Gastro-esophageal reflux disease without esophagitis; K59.00 Constipation, unspecified; M19.90 Unspecified osteoarthritis, unspecified site; Z91.19 Patient's noncompliance with other medical treatment and regimen; F41.9 Anxiety disorder, unspecified; G62.9 Polyneuropathy, unspecified; Z59.0 Homelessness; Z68.44 Body mass index [BMI] 60.0-69.9, adult; Z79.899 Other long term (current) drug therapy; Z71.6 Tobacco abuse counseling
CPT/HCPCS: 87081

== ENCOUNTER 2019-06-03 00:43 | Inpatient (IN) | payer MEDICAID ==
[~2019-06-03] VITALS: Ht 162.6 cm; Wt 144.2 kg
[~2019-06-03 00:43] MED LIST changes: +DULO20CA30 PO; -DULO60CA44 PO; -NALT50TA PO; -OLAN10TA22 PO
[2019-06-03 03:30] VITALS: BP 159/109
[2019-06-03] MEDS ORDERED: QUEtiapine FUMARATE 100 MG TABLET PO PRN (06:15)
[2019-06-03 08:14] VITALS: BP 143/80
[2019-06-03 08:28] VITALS: BP 143/80
[2019-06-03 09:26] VITALS: BP 139/87
[2019-06-03] MEDS ORDERED: MAGNESIUM HYDROXIDE SUSPENSION 30 ML UDCUP PO PRN (10:15)
[2019-06-03] MEDS ORDERED: IBUPROFEN 400 MG TABLET PO PRN (10:15)
[2019-06-03] MEDS ORDERED: ACETAMINOPHEN 325 MG TABLET PO PRN (10:15)
[2019-06-03] MEDS ORDERED: LOPERAMIDE HCL 2 MG CAPSULE PO PRN (10:15)
[2019-06-03] MEDS ORDERED: GuaiFENesin/D-METHORPHAN [SUGAR-FREE] 200-20MG/10 ML SYRUP UDCUP PO PRN (10:15)
[2019-06-03] MEDS ORDERED: PETROLATUM,WHITE 28 GM JELLY TP PRN (10:15)
[2019-06-03] MEDS ORDERED: ONDANSETRON HCL 4 MG TABLET PO PRN (10:15)
[2019-06-03] MEDS ORDERED: DOCUSATE SODIUM 100 MG CAPSULE PO PRN (10:15)
[2019-06-03] MEDS ORDERED: MAG HYDROX/AL HYDROX/SIMETH ES 30 ML SUSPENSION UDCUP PO PRN (10:15)
[2019-06-03] MEDS ORDERED: ALBUTEROL SULFATE HFA 90 MCG/PUFF 8 GM INHALER IH PRN (10:15)
[2019-06-03] MEDS ORDERED: NICOTINE 14 MG/24 HOUR PATCH TD PRN (10:15)
[2019-06-03] MEDS ORDERED: INFLUENZA VIRUS VACCINE QVS 2019-20 (3YR+)/PF 60 MCG/0.5 ML SYRINGE IM ONE (12:00)
[2019-06-03] MEDS ORDERED: -PHARMACY VACCINE NOTE- MISC ONE (12:00)
[2019-06-03] MEDS: DULoxetine HCL 20 MG CAPSULE PO SCH (12:58)
[2019-06-03 19:04] VITALS: BP 140/89
[2019-06-03] MEDS: OLANZapine 10 MG RAPDIS TABLET PO SCH (20:50)
[2019-06-04 07:08] VITALS: BP 141/91
[2019-06-04 08:20] VITALS: BP 160/106
[2019-06-04] MEDS: DULoxetine HCL 20 MG CAPSULE PO SCH (08:23)
[2019-06-04] MEDS: NICOTINE 21 MG/24 HOUR PATCH TD SCH (08:28)
[2019-06-04] MEDS ORDERED: LISINOPRIL 20 MG TABLET PO SCH ×2 (09:00)
[2019-06-04] MEDS ORDERED: CloNIDine HCL 0.1 MG TABLET PO SCH ×2 (09:00)
[2019-06-04 13:21] VITALS: BP 148/98
[2019-06-04] MEDS: CloNIDine HCL 0.1 MG TABLET PO SCH (16:02)
[2019-06-04] MEDS: IBUPROFEN 600 MG TABLET PO SCH (16:02)
[2019-06-04 16:21] VITALS: BP 180/98
[2019-06-04 17:02] VITALS: BP 158/99
[2019-06-04] MEDS: OLANZapine 10 MG RAPDIS TABLET PO SCH (20:23)
[2019-06-04] MEDS: LISINOPRIL 20 MG TABLET PO SCH (20:23)
[2019-06-04 21:23] VITALS: BP 149/96
[2019-06-05] MEDS: LORazepam 2 MG TABLET PO PRN (00:36)
[2019-06-05] MEDS: IBUPROFEN 600 MG TABLET PO SCH ×3 (00:36→15:58)
[2019-06-05 06:12] VITALS: BP 127/71
[2019-06-05] MEDS: DULoxetine HCL 20 MG CAPSULE PO SCH (08:17)
[2019-06-05] MEDS: CloNIDine HCL 0.1 MG TABLET PO SCH ×2 (08:17→16:25)
[2019-06-05] MEDS: NICOTINE 21 MG/24 HOUR PATCH TD SCH (08:17)
[2019-06-05] MEDS: LISINOPRIL 20 MG TABLET PO SCH ×2 (08:18→16:25)
[2019-06-05 08:28] VITALS: BP 153/89
[2019-06-05 10:36] VITALS: BP 139/94
[2019-06-05 12:26] VITALS: BP 127/87
[2019-06-05 16:26] VITALS: BP 135/75
[2019-06-05] MEDS: OLANZapine 10 MG RAPDIS TABLET PO SCH (20:56)
[2019-06-06] MEDS: IBUPROFEN 600 MG TABLET PO SCH ×4 (00:06→23:59)
[2019-06-06 01:40] VITALS: BP 130/86
[2019-06-06] MEDS: ZOLPIDEM TARTRATE 10 MG TABLET PO PRN (01:42)
[2019-06-06 08:27] VITALS: BP 106/65
[2019-06-06 08:29] VITALS: BP 139/78
[2019-06-06] MEDS: CloNIDine HCL 0.1 MG TABLET PO SCH ×2 (08:30→16:16)
[2019-06-06] MEDS: NICOTINE 21 MG/24 HOUR PATCH TD SCH (08:30)
[2019-06-06] MEDS: DULoxetine HCL 20 MG CAPSULE PO SCH (08:30)
[2019-06-06] MEDS: LISINOPRIL 20 MG TABLET PO SCH ×2 (08:31→16:17)
[2019-06-06 19:20] VITALS: BP 147/108
[2019-06-06] MEDS ORDERED: CloNIDine HCL 0.1 MG TABLET PO ONE (19:30)
[2019-06-06] MEDS: OLANZapine 10 MG RAPDIS TABLET PO SCH (20:30)
[2019-06-06 20:51] VITALS: BP 137/76
[2019-06-07] MEDS: ZOLPIDEM TARTRATE 10 MG TABLET PO PRN (00:10)
[2019-06-07 06:55] VITALS: BP 133/77
[2019-06-07] MEDS: DULoxetine HCL 20 MG CAPSULE PO SCH (09:00)
[2019-06-07] MEDS: NICOTINE 21 MG/24 HOUR PATCH TD SCH (09:00)
[2019-06-07] MEDS: IBUPROFEN 600 MG TABLET PO SCH ×3 (09:01→23:55)
[2019-06-07] MEDS: LISINOPRIL 20 MG TABLET PO SCH ×2 (09:01→17:26)
[2019-06-07] MEDS: CloNIDine HCL 0.1 MG TABLET PO SCH ×2 (09:01→17:26)
[2019-06-07 09:02] VITALS: BP 139/75
[2019-06-07 16:29] VITALS: BP 141/72
[2019-06-07] MEDS: OLANZapine 10 MG RAPDIS TABLET PO SCH (20:35)
[2019-06-08] MEDS: ZOLPIDEM TARTRATE 10 MG TABLET PO PRN ×2 (00:24→23:55)
[2019-06-08 01:23] VITALS: BP 138/99
[2019-06-08 08:46] VITALS: BP 151/86
[2019-06-08] MEDS: DULoxetine HCL 20 MG CAPSULE PO SCH (08:46)
[2019-06-08] MEDS: NICOTINE 21 MG/24 HOUR PATCH TD SCH (08:47)
[2019-06-08] MEDS: LISINOPRIL 20 MG TABLET PO SCH ×2 (08:47→16:07)
[2019-06-08] MEDS: IBUPROFEN 600 MG TABLET PO SCH ×3 (08:47→23:55)
[2019-06-08] MEDS: CloNIDine HCL 0.1 MG TABLET PO SCH ×2 (08:52→16:05)
[2019-06-08 09:30] VITALS: BP 144/80
[2019-06-08 16:10] VITALS: BP 126/70
[2019-06-08] MEDS: OLANZapine 10 MG RAPDIS TABLET PO SCH (20:40)
[2019-06-09 05:10] VITALS: BP 139/81
[2019-06-09] MEDS: IBUPROFEN 600 MG TABLET PO SCH ×3 (08:11→23:50)
[2019-06-09] MEDS: CloNIDine HCL 0.1 MG TABLET PO SCH ×2 (08:11→16:20)
[2019-06-09] MEDS: LISINOPRIL 20 MG TABLET PO SCH ×2 (08:12→16:20)
[2019-06-09] MEDS: DULoxetine HCL 20 MG CAPSULE PO SCH (08:12)
[2019-06-09] MEDS: NICOTINE 21 MG/24 HOUR PATCH TD SCH (08:15)
[2019-06-09 08:26] VITALS: BP 128/64
[2019-06-09 16:17] VITALS: BP 126/79
[2019-06-09] MEDS: OLANZapine 10 MG RAPDIS TABLET PO SCH (20:27)
[2019-06-10] MEDS: ZOLPIDEM TARTRATE 10 MG TABLET PO PRN (01:50)
[2019-06-10 05:29] VITALS: BP 151/79
[2019-06-10 08:12] VITALS: BP 114/66
[2019-06-10] MEDS: IBUPROFEN 600 MG TABLET PO SCH ×2 (08:13→16:06)
[2019-06-10] MEDS: LISINOPRIL 20 MG TABLET PO SCH ×2 (08:14→16:06)
[2019-06-10] MEDS: DULoxetine HCL 20 MG CAPSULE PO SCH (08:14)
[2019-06-10] MEDS: NICOTINE 21 MG/24 HOUR PATCH TD SCH (08:14)
[2019-06-10] MEDS: CloNIDine HCL 0.1 MG TABLET PO SCH ×2 (08:14→16:06)
[2019-06-10] MEDS: MULTIVITAMINS WITH MINERALS, THERAPEUTIC TABLET PO SCH (12:46)
[2019-06-10 16:11] VITALS: BP 152/97
[2019-06-10] MEDS: OLANZapine 10 MG RAPDIS TABLET PO SCH (20:12)
[2019-06-11 05:49] VITALS: BP 148/85
[2019-06-11 08:10] VITALS: BP 129/72
[2019-06-11] MEDS: IBUPROFEN 600 MG TABLET PO SCH ×3 (08:15→16:44)
[2019-06-11] MEDS: NICOTINE 21 MG/24 HOUR PATCH TD SCH (08:16)
[2019-06-11] MEDS: LISINOPRIL 20 MG TABLET PO SCH ×2 (08:16→16:44)
[2019-06-11] MEDS: CloNIDine HCL 0.1 MG TABLET PO SCH ×2 (08:16→16:45)
[2019-06-11] MEDS: MULTIVITAMINS WITH MINERALS, THERAPEUTIC TABLET PO SCH (08:16)
[2019-06-11] MEDS: DULoxetine HCL 20 MG CAPSULE PO SCH (08:16)
[2019-06-11 16:21] VITALS: BP 157/98
[2019-06-11 17:57] VITALS: BP 131/81
[2019-06-11] MEDS: OLANZapine 10 MG RAPDIS TABLET PO SCH (20:42)
[2019-06-11] MEDS: ZOLPIDEM TARTRATE 10 MG TABLET PO PRN (20:42)
[2019-06-12] MEDS: IBUPROFEN 600 MG TABLET PO SCH ×3 (00:09→16:17)
[2019-06-12 07:21] VITALS: BP 160/117
[2019-06-12 08:19] VITALS: BP 145/87
[2019-06-12] MEDS: LISINOPRIL 20 MG TABLET PO SCH ×2 (08:26→16:18)
[2019-06-12] MEDS: CloNIDine HCL 0.1 MG TABLET PO SCH ×2 (08:27→16:17)
[2019-06-12] MEDS: MULTIVITAMINS WITH MINERALS, THERAPEUTIC TABLET PO SCH (08:27)
[2019-06-12] MEDS: DULoxetine HCL 20 MG CAPSULE PO SCH (08:27)
[2019-06-12] MEDS: NICOTINE 21 MG/24 HOUR PATCH TD SCH (09:00)
[2019-06-12 16:11] VITALS: BP 160/76
[2019-06-12 17:18] VITALS: BP 119/73
[2019-06-12] MEDS: OLANZapine 10 MG RAPDIS TABLET PO SCH (21:03)
[2019-06-13] MEDS: ZOLPIDEM TARTRATE 10 MG TABLET PO PRN
[2019-06-13 03:26] VITALS: BP 142/91
[2019-06-13] MEDS: MULTIVITAMINS WITH MINERALS, THERAPEUTIC TABLET PO SCH (08:39)
[2019-06-13] MEDS: CloNIDine HCL 0.1 MG TABLET PO SCH ×2 (08:41→16:20)
[2019-06-13] MEDS: LISINOPRIL 20 MG TABLET PO SCH ×2 (08:41→16:20)
[2019-06-13] MEDS: IBUPROFEN 600 MG TABLET PO SCH ×4 (08:41→23:39)
[2019-06-13 08:42] VITALS: BP 116/51
[2019-06-13] MEDS: NICOTINE 21 MG/24 HOUR PATCH TD SCH (08:42)
[2019-06-13] MEDS: DULoxetine HCL 20 MG CAPSULE PO SCH (08:42)
[2019-06-13 08:50] VITALS: BP 120/72
[2019-06-13 16:00] VITALS: BP 125/78
[2019-06-13] MEDS: OLANZapine 10 MG RAPDIS TABLET PO SCH (20:12)
[2019-06-14] MEDS: CloNIDine HCL 0.1 MG TABLET PO SCH ×2 (08:11→16:07)
[2019-06-14] MEDS: IBUPROFEN 600 MG TABLET PO SCH ×2 (08:11→16:07)
[2019-06-14] MEDS: LISINOPRIL 20 MG TABLET PO SCH ×2 (08:11→16:07)
[2019-06-14] MEDS: MULTIVITAMINS WITH MINERALS, THERAPEUTIC TABLET PO SCH (08:11)
[2019-06-14] MEDS: DULoxetine HCL 20 MG CAPSULE PO SCH (08:11)
[2019-06-14] MEDS: NICOTINE 21 MG/24 HOUR PATCH TD SCH (08:12)
[2019-06-14 08:31] VITALS: BP 135/99
[2019-06-14 16:09] VITALS: BP 135/74
[2019-06-14] MEDS: OLANZapine 10 MG RAPDIS TABLET PO SCH (20:15)
[2019-06-15] MEDS: IBUPROFEN 600 MG TABLET PO SCH ×4 (00:23→23:40)
[2019-06-15 01:20] VITALS: BP 111/67
[2019-06-15 08:20] VITALS: BP 132/90
[2019-06-15] MEDS: CloNIDine HCL 0.1 MG TABLET PO SCH ×2 (08:22→16:49)
[2019-06-15] MEDS: MULTIVITAMINS WITH MINERALS, THERAPEUTIC TABLET PO SCH (08:22)
[2019-06-15] MEDS: LISINOPRIL 20 MG TABLET PO SCH ×2 (08:23→16:49)
[2019-06-15] MEDS: DULoxetine HCL 20 MG CAPSULE PO SCH (08:23)
[2019-06-15] MEDS: NICOTINE 21 MG/24 HOUR PATCH TD SCH (08:43)
[2019-06-15 16:20] VITALS: BP 127/79
[2019-06-15] MEDS: OLANZapine 10 MG RAPDIS TABLET PO SCH (20:26)
[2019-06-15] MEDS: ZOLPIDEM TARTRATE 10 MG TABLET PO PRN (23:40)
[2019-06-16 06:39] VITALS: BP 136/79
[2019-06-16 08:24] VITALS: BP 131/75
[2019-06-16] MEDS: MULTIVITAMINS WITH MINERALS, THERAPEUTIC TABLET PO SCH (09:34)
[2019-06-16] MEDS: CloNIDine HCL 0.1 MG TABLET PO SCH ×2 (09:34→16:49)
[2019-06-16] MEDS: LISINOPRIL 20 MG TABLET PO SCH ×2 (09:34→16:49)
[2019-06-16] MEDS: IBUPROFEN 600 MG TABLET PO SCH ×2 (09:34→16:48)
[2019-06-16] MEDS: NICOTINE 21 MG/24 HOUR PATCH TD SCH (09:35)
[2019-06-16] MEDS: DULoxetine HCL 20 MG CAPSULE PO SCH (10:35)
[2019-06-16 16:10] VITALS: BP 125/71
[2019-06-16] MEDS: OLANZapine 10 MG RAPDIS TABLET PO SCH (20:40)
[2019-06-17] MEDS: IBUPROFEN 600 MG TABLET PO SCH ×3 (00:02→16:14)
[2019-06-17] MEDS: ZOLPIDEM TARTRATE 10 MG TABLET PO PRN (00:02)
[2019-06-17 06:01] VITALS: BP 126/72
[2019-06-17] MEDS: MULTIVITAMINS WITH MINERALS, THERAPEUTIC TABLET PO SCH (08:26)
[2019-06-17] MEDS: CloNIDine HCL 0.1 MG TABLET PO SCH ×2 (08:26→16:15)
[2019-06-17] MEDS: DULoxetine HCL 20 MG CAPSULE PO SCH (08:26)
[2019-06-17] MEDS: NICOTINE 21 MG/24 HOUR PATCH TD SCH (08:26)
[2019-06-17] MEDS: LISINOPRIL 20 MG TABLET PO SCH ×2 (08:26→16:15)
[2019-06-17 08:42] VITALS: BP 142/93
[2019-06-17 14:19] VITALS: BP 115/72
[2019-06-17 16:12] VITALS: BP 120/75
[2019-06-17] MEDS: OLANZapine 10 MG RAPDIS TABLET PO SCH (20:14)
[2019-06-18] MEDS: IBUPROFEN 600 MG TABLET PO SCH ×3 (00:02→16:08)
[2019-06-18 05:52] VITALS: BP 142/88
[2019-06-18 08:22] VITALS: BP 138/89
[2019-06-18] MEDS: MULTIVITAMINS WITH MINERALS, THERAPEUTIC TABLET PO SCH (08:23)
[2019-06-18] MEDS: NICOTINE 21 MG/24 HOUR PATCH TD SCH (08:23)
[2019-06-18] MEDS: DULoxetine HCL 20 MG CAPSULE PO SCH (08:23)
[2019-06-18] MEDS: LISINOPRIL 20 MG TABLET PO SCH ×2 (08:24→16:08)
[2019-06-18] MEDS: CloNIDine HCL 0.1 MG TABLET PO SCH ×2 (09:10→16:08)
[2019-06-18 16:00] VITALS: BP 131/76
[2019-06-18] MEDS: OLANZapine 10 MG RAPDIS TABLET PO SCH (20:30)
[2019-06-19] MEDS: IBUPROFEN 600 MG TABLET PO SCH ×3 (00:04→16:42)
[2019-06-19 01:47] VITALS: BP 116/62
[2019-06-19] MEDS: LORazepam 2 MG TABLET PO PRN (07:07)
[2019-06-19 08:11] VITALS: BP 121/81
[2019-06-19] MEDS: DULoxetine HCL 20 MG CAPSULE PO SCH (08:52)
[2019-06-19] MEDS: NICOTINE 21 MG/24 HOUR PATCH TD SCH (08:53)
[2019-06-19] MEDS: MULTIVITAMINS WITH MINERALS, THERAPEUTIC TABLET PO SCH (08:53)
[2019-06-19] MEDS: CloNIDine HCL 0.1 MG TABLET PO SCH ×2 (08:53→16:42)
[2019-06-19] MEDS: LISINOPRIL 20 MG TABLET PO SCH ×2 (08:53→16:42)
[2019-06-19 16:07] VITALS: BP 125/70
[2019-06-19] MEDS: OLANZapine 10 MG RAPDIS TABLET PO SCH (20:44)
[2019-06-20] MEDS: IBUPROFEN 600 MG TABLET PO SCH ×3 (00:01→16:37)
[2019-06-20 06:07] VITALS: BP 132/81
[2019-06-20] MEDS: LORazepam 2 MG TABLET PO PRN (07:04)
[2019-06-20 08:28] VITALS: BP 133/71
[2019-06-20] MEDS: MULTIVITAMINS WITH MINERALS, THERAPEUTIC TABLET PO SCH (08:31)
[2019-06-20] MEDS: DULoxetine HCL 20 MG CAPSULE PO SCH (08:31)
[2019-06-20] MEDS: LISINOPRIL 20 MG TABLET PO SCH ×2 (08:31→16:38)
[2019-06-20] MEDS: CloNIDine HCL 0.1 MG TABLET PO SCH ×2 (08:32→16:37)
[2019-06-20] MEDS: NICOTINE 21 MG/24 HOUR PATCH TD SCH (09:00)
[2019-06-20] MEDS: OLANZapine 10 MG RAPDIS TABLET PO SCH (20:33)
[2019-06-21] MEDS: LORazepam 2 MG TABLET PO PRN (02:54)
[2019-06-21] MEDS: IBUPROFEN 600 MG TABLET PO SCH ×3 (02:55→16:15)
[2019-06-21 05:38] VITALS: BP 137/78
[2019-06-21 08:25] VITALS: BP 133/68
[2019-06-21] MEDS: LISINOPRIL 20 MG TABLET PO SCH ×2 (08:32→16:49)
[2019-06-21] MEDS: CloNIDine HCL 0.1 MG TABLET PO SCH ×2 (08:32→16:49)
[2019-06-21] MEDS: MULTIVITAMINS WITH MINERALS, THERAPEUTIC TABLET PO SCH (08:32)
[2019-06-21] MEDS: DULoxetine HCL 20 MG CAPSULE PO SCH (08:33)
[2019-06-21] MEDS: NICOTINE 21 MG/24 HOUR PATCH TD SCH (09:00)
[2019-06-21 16:00] VITALS: BP 189/82
[2019-06-21 17:56] VITALS: BP 109/71
[2019-06-21] MEDS: OLANZapine 10 MG RAPDIS TABLET PO SCH (20:25)
[2019-06-22] MEDS: IBUPROFEN 600 MG TABLET PO SCH ×3 (00:05→16:02)
[2019-06-22 05:08] VITALS: BP 135/76
[2019-06-22] MEDS: LISINOPRIL 20 MG TABLET PO SCH ×2 (08:16→16:01)
[2019-06-22] MEDS: MULTIVITAMINS WITH MINERALS, THERAPEUTIC TABLET PO SCH (08:16)
[2019-06-22] MEDS: DULoxetine HCL 20 MG CAPSULE PO SCH (08:16)
[2019-06-22] MEDS: CloNIDine HCL 0.1 MG TABLET PO SCH ×2 (08:17→16:01)
[2019-06-22] MEDS: NICOTINE 21 MG/24 HOUR PATCH TD SCH (08:17)
[2019-06-22 08:29] VITALS: BP 162/114
[2019-06-22 10:56] VITALS: BP 128/92
[2019-06-22 16:09] VITALS: BP 109/78
[2019-06-22] MEDS: OLANZapine 10 MG RAPDIS TABLET PO SCH (20:02)
[2019-06-23 00:04] VITALS: BP 119/77
[2019-06-23] MEDS: IBUPROFEN 600 MG TABLET PO SCH ×3 (00:06→16:11)
[2019-06-23] MEDS: CloNIDine HCL 0.1 MG TABLET PO SCH ×2 (08:09→16:11)
[2019-06-23] MEDS: MULTIVITAMINS WITH MINERALS, THERAPEUTIC TABLET PO SCH (08:09)
[2019-06-23] MEDS: LISINOPRIL 20 MG TABLET PO SCH ×2 (08:09→16:11)
[2019-06-23] MEDS: DULoxetine HCL 20 MG CAPSULE PO SCH (08:09)
[2019-06-23] MEDS: NICOTINE 21 MG/24 HOUR PATCH TD SCH (08:10)
[2019-06-23 08:20] VITALS: BP 129/79
[2019-06-23 16:28] VITALS: BP 120/64
[2019-06-23] MEDS: OLANZapine 10 MG RAPDIS TABLET PO SCH (20:24)
[2019-06-24 00:03] VITALS: BP 117/77
[2019-06-24] MEDS: IBUPROFEN 600 MG TABLET PO SCH ×2 (00:07→08:16)
[2019-06-24] MEDS: CloNIDine HCL 0.1 MG TABLET PO SCH (08:16)
[2019-06-24] MEDS: DULoxetine HCL 20 MG CAPSULE PO SCH (08:16)
[2019-06-24] MEDS: LISINOPRIL 20 MG TABLET PO SCH (08:16)
[2019-06-24] MEDS: MULTIVITAMINS WITH MINERALS, THERAPEUTIC TABLET PO SCH (08:17)
[2019-06-24] MEDS: NICOTINE 21 MG/24 HOUR PATCH TD SCH (08:19)
[2019-06-24 08:32] VITALS: BP 149/80
== END 2019-06-24 13:05 | disposition home or self-care (01) | DRG 750 ==
LOC: B3A 06:14
PROVIDERS: ATTEND Psychiatry & Neurology Child & Adolescent Psychiatry
DX: F25.1 Schizoaffective disorder, depressive type (principal); Z91.19 Patient's noncompliance with other medical treatment and regimen; H54.62 Unqualified visual loss, left eye, normal vision right eye; I10 Essential (primary) hypertension; J44.9 Chronic obstructive pulmonary disease, unspecified; Z91.5 Personal history of self-harm; Z98.51 Tubal ligation status

== ENCOUNTER 2021-07-07 19:36 | Emergency (ER) | payer MEDICAID, OTHER ==
[~2021-07-07] VITALS: Ht 160 cm; Wt 136.4 kg
[~2021-07-07 19:36] MED LIST changes: -CLON-570 PO; +CLON0.1T2 PO; +DULO20CA27 PO; -DULO20CA30 PO; -GABA-533 PO; -LISI-662 PO; +LISI-894 PO; -NALT50TA6 PO; +OLAN10TA26 PO; -OLAN10TA6 PO
[2021-07-07] MEDS ORDERED: ACETAMINOPHEN 500 MG TABLET PO ONE (20:30)
[2021-07-07 21:46] LABS: EOSINOPHILS % (AUTO) 2.5 % (1.0-6.0); HEMATOCRIT 31.4 % (36-46); HEMOGLOBIN 9.5 g/dL (12.0-16.0); LYMPHOCYTES # (AUTO) 2.5 K/uL (1.0-4.8); LYMPHOCYTES % (AUTO) 29.5 % (22.0-44.0); MEAN CORPUSCULAR HEMOGLOBIN 21.4 pg (26.0-34.0); MEAN CORPUSCULAR HGB CONC 30.1 G/dL (31.0-37.0); MEAN CORPUSCULAR VOLUME 71 fL (80-100); MONOCYTES # (AUTO) 0.6 K/uL (0.1-1.0); MONOCYTES % (AUTO) 7.7 % (2.0-9.0); NEUTROPHILS % (AUTO) 59.3 % (40.0-70.0); PLATELET COUNT (AUTO) 493 K/uL (150-450); RED BLOOD CELL COUNT(AUTO) 4.42 MIL/uL (4.00-5.20); RED CELL DISTRIBUTION WIDTH 18.4 % (11.5-14.5)
[2021-07-07 22:05] LABS: INR 1.1 (0.9-1.1); PROTHROMBIN TIME 11.4 SEC (9.4-11.6)
[2021-07-07 22:15] LABS: ALANINE AMINOTRANSFERASE 12 U/L (12-78); ALBUMIN 3.7 g/dL (3.4-5.0); ALKALINE PHOSPHATASE 88 U/L (46-116); ANION GAP 5 mmol/L (8-16); ASPARTATE AMINOTRANSFERASE 11 U/L (15-37); BILIRUBIN,TOTAL 0.2 mg/dL (0.1-1.0); CALCIUM, TOTAL 9.5 mg/dL (8.8-10.5); CARBON DIOXIDE 33 mmol/L (22-29); CHLORIDE 100 mmol/L (98-107); CREATINE KINASE, TOTAL ONLY 75 U/L (26-192); CREATININE 0.93 mg/dL (0.60-1.30); GLOMERULAR FILTR. RATE CALC > 60 mL/min (>60); GLUCOSE,RANDOM 106 mg/dL (70-110); SODIUM SERUM 138 mmol/L (136-145); TOTAL PROTEIN, SERUM 8.9 g/dL (6.4-8.2); UREA NITROGEN, BLOOD 10 mg/dL (7-18)
[2021-07-07] MEDS ORDERED: KETOROLAC TROMETHAMINE 30 MG/ML VIAL IM ONE (22:15)
[2021-07-07] MEDS ORDERED: CYCLOBENZAPRINE HCL 10 MG TABLET PO ONE (22:15)
[2021-07-07 22:21] LABS: B-TYPE NATRIURETIC PEPTIDE 31 pg/mL (0-100)
[2021-07-07] MEDS ORDERED: POTASSIUM CHLORIDE 20 MEQ ER TABLET PO ONE (22:30)
[2021-07-08 00:58] VITALS: BP 138/69
== END 2021-07-08 00:58 | disposition home or self-care (01) ==
LOC: EMS 19:43
DX: G89.29 Other chronic pain (principal); M54.9 Dorsalgia, unspecified; R60.0 Localized edema; I10 Essential (primary) hypertension; J44.9 Chronic obstructive pulmonary disease, unspecified; F20.9 Schizophrenia, unspecified; F32.9 Major depressive disorder, single episode, unspecified; F17.210 Nicotine dependence, cigarettes, uncomplicated; Z79.899 Other long term (current) drug therapy; Z59.00 Homelessness unspecified
CPT/HCPCS: 71045; 80053; 82550; 83880; 84484; 85025; 85610; 85730; 93005; 93971; 96372; 99285; J1885

== ENCOUNTER 2021-08-20 13:51 | Emergency (ER) | payer OTHER ==
[~2021-08-20] VITALS: Ht 167.6 cm; Wt 122.3 kg
[2021-08-20 16:10] VITALS: BP 136/85
[2021-08-20] MEDS ORDERED: HYDROCODONE/ACETAMINOPHEN 5-325 MG TABLET PO ONE (18:30)
== END 2021-08-20 18:37 | disposition home or self-care (01) ==
LOC: EMS 13:54
DX: M25.562 Pain in left knee (principal); K59.00 Constipation, unspecified; I10 Essential (primary) hypertension; J44.9 Chronic obstructive pulmonary disease, unspecified; F32.9 Major depressive disorder, single episode, unspecified; F20.9 Schizophrenia, unspecified; F17.210 Nicotine dependence, cigarettes, uncomplicated; Z79.899 Other long term (current) drug therapy
CPT/HCPCS: 99283

== ENCOUNTER 2021-09-24 13:24 | Emergency (ER) | payer OTHER ==
[~2021-09-24] VITALS: Ht 157.5 cm; Wt 138.6 kg
[2021-09-24] MEDS ORDERED: IBUPROFEN 400 MG TABLET PO ONE (14:15)
[2021-09-24] MEDS ORDERED: HYDROCODONE/ACETAMINOPHEN 5-325 MG TABLET PO ONE (14:15)
[2021-09-24 18:00] VITALS: BP 147/76
== END 2021-09-24 20:05 | disposition home or self-care (01) ==
LOC: EMS 13:33
DX: M71.22 Synovial cyst of popliteal space [Baker], left knee (principal); M25.562 Pain in left knee; G89.29 Other chronic pain; J45.909 Unspecified asthma, uncomplicated; I10 Essential (primary) hypertension; F20.9 Schizophrenia, unspecified; Z59.00 Homelessness unspecified; Z79.899 Other long term (current) drug therapy
CPT/HCPCS: 93971; 99284; 73562-TC; Z7502; Z7610

== ENCOUNTER 2021-11-27 19:34 | Emergency (ER) | payer OTHER ==
[~2021-11-27] VITALS: Ht 157.5 cm; Wt 136.4 kg
[~2021-11-27 19:34] MED LIST changes: -DULO20CA27 PO; +DULO20CA71 PO
[2021-11-27] MEDS ORDERED: FENO145T26 PO (19:48)
[2021-11-27] MEDS ORDERED: HYDR25TA PO (19:48)
[2021-11-27] MEDS ORDERED: SULF500T8 PO (19:48)
[2021-11-27] MEDS ORDERED: AMLO10TA55 PO (19:48)
[2021-11-27] MEDS ORDERED: QUET200T30 PO (19:48)
[2021-11-27] MEDS ORDERED: DULO-114 PO (19:48)
[2021-11-27] MEDS ORDERED: GABA600T10 PO (19:48)
[2021-11-27] MEDS ORDERED: ARIP20TA21 PO (19:48)
[2021-11-27] MEDS ORDERED: BENZ1TAB96 PO (19:48)
[2021-11-27] MEDS ORDERED: FLUT1AER IH (19:48)
[2021-11-27] MEDS ORDERED: ALBU8HFA IH (19:48)
[2021-11-27] MEDS ORDERED: DIVA-80 PO (19:48)
[2021-11-27] MEDS ORDERED: LIDOCAINE 5% TRANSDERMAL PATCH TD ONE (20:30)
[2021-11-27] MEDS ORDERED: HYDROCODONE/ACETAMINOPHEN 5-325 MG TABLET PO ONE (20:30)
[2021-11-27] MEDS ORDERED: HYDR-4723 PO (21:44)
[2021-11-27 22:11] VITALS: BP 121/77
== END 2021-11-27 22:25 | disposition home or self-care (01) ==
LOC: EMS 19:34
DX: G89.29 Other chronic pain (principal); M54.50 Low back pain, unspecified; M25.551 Pain in right hip; J45.909 Unspecified asthma, uncomplicated; I10 Essential (primary) hypertension; F20.9 Schizophrenia, unspecified; F17.210 Nicotine dependence, cigarettes, uncomplicated; Z59.00 Homelessness unspecified
CPT/HCPCS: 99283

== ENCOUNTER 2022-03-29 20:16 | Emergency (ER) | payer OTHER ==
[~2022-03-29] VITALS: Ht 160 cm; Wt 136.4 kg
[~2022-03-29 20:16] MED LIST changes: +ALBU8HFA IH; +AMLO10TA55 PO; +ARIP20TA21 PO; +BENZ1TAB96 PO; -CLON0.1T2 PO; +DIVA-80 PO; +DULO-114 PO; -DULO20CA71 PO; +FENO145T26 PO; +FLUT1AER IH; +GABA600T10 PO; +HYDR-4723 PO; +HYDR25TA PO; -LISI-894 PO; -OLAN10TA26 PO; +QUET200T30 PO; +SULF500T8 PO
[2022-03-29 22:48] VITALS: BP 136/74
[2022-03-29] MEDS ORDERED: IBUP-2070 PO (23:51)
[2022-03-30] MEDS ORDERED: KETOROLAC TROMETHAMINE 30 MG/ML VIAL IM ONE
== END 2022-03-30 00:17 | disposition home or self-care (01) ==
LOC: EMS 20:18
DX: M17.12 Unilateral primary osteoarthritis, left knee (principal); E66.01 Morbid (severe) obesity due to excess calories; F20.9 Schizophrenia, unspecified; F17.210 Nicotine dependence, cigarettes, uncomplicated; I10 Essential (primary) hypertension; J45.909 Unspecified asthma, uncomplicated; Z59.00 Homelessness unspecified
CPT/HCPCS: 99283; 73562; 96372; J1885